=== PATIENT | female | born 1930 | race Caucasian/White ===

== ENCOUNTER 2017-06-16 20:45 | Inpatient (IN) | payer MEDICARE, OTHER ==
[~2017-06-16] VITALS: Ht 162.6 cm; Wt 60.0 kg
[~2017-06-16 20:45] MED LIST: ADVI200C5 PO; CARV10 PO; COLA100C3 PO; HYDR-3535 PO; MIRA33504 PO; OXYB5TAB8 PO; RANI300T PO
[2017-06-16 21:16] VITALS: BP 145/91; PULSE 87; RESP 18; TEMP 98; O2SAT 91
[2017-06-16] MEDS ORDERED: DULO20 PO (21:42)
[2017-06-16] MEDS ORDERED: ASPI81CH6 CHEW (21:42)
[2017-06-16] MEDS ORDERED: CYMB30CA PO (21:42)
[2017-06-16 21:59] LABS: AUTOMATED NEUTROPHIL # 4.7 TH/MM3 (1.8-7.7); BASOPHIL % 0.5 % (0.0-2.0); EOSINOPHIL # 0.2 TH/MM3 (0-0.4); EOSINOPHIL % 3.6 % (0.0-4.0); HEMATOCRIT 31.4 % (35.0-46.0); HEMO FLAGS DIFF FINAL; LYMPH % 12.6 % (9.0-44.0); LYMPHOCYTE # 0.8 TH/MM3 (1.0-4.8); MEAN CELL VOLUME 80.6 FL (80.0-100.0); MEAN CORPUSCULAR HEMOGLOBIN 26.9 PG (27.0-34.0); MEAN CORPUSCULAR HGB CONC 33.3 % (32.0-36.0); MONO % 12.1 % (0.0-8.0); NEUT % 71.2 % (16.0-70.0); PLATELET COUNT 258 TH/MM3 (150-450); RED BLOOD COUNT 3.89 MIL/MM3 (4.00-5.30); RED CELL DISTRIBUTION WIDTH 16.6 % (11.6-17.2); WHITE BLOOD COUNT 6.6 TH/MM3 (4.0-11.0)
[2017-06-16] MEDS ORDERED: KETOROLAC TROMETHAMINE 30 MG/ML (IVP) VIAL IV PUSH ONE (22:00)
--- NOTE | 2017-06-16 22:08 | PD ---
HPI Chief Complaint: Fall Time Seen by Provider: 21:21 Travel History International Travel<30 days: No Contact w/Intl Traveler<30days: No Traveled to known affect area: No History of Present Illness HPI 87-year-old female presents emergency department via EMS for evaluation after she was walking with a walker and experienced a mechanical fall. Patient hit the left parietal aspect of her skull and sustained a laceration. Patient denies any loss consciousness, nausea, vomiting. Patient is experiencing left shoulder pain subsequent to the fall. There is no obvious deformity, ecchymosis , erythema, cyanosis. Patient is not currently on any blood thinners outside of baby aspirin daily. Patient has any chest pain, shortness of breath, abdominal pain, nausea, vomiting, diarrhea. PFSH Past Medical History Arthritis: Yes Diminished Hearing: No Fibromyalgia: Yes GERD: Yes Genitourinary: Yes (overactive bladder) Hypertension: Yes Tetanus Vaccination: Unknown Influenza Vaccination: No ?: Not Menopausal: Yes Past Surgical History Joint Replacement: Yes (hip) Social History Alcohol Use: No Tobacco Use: No Substance Use: No Allergies-Medications (Allergen,Severity, Reaction): Coded Allergies: buspirone (Unverified Adverse Reaction, Intermediate, 06/16/17) codeine (Unverified Adverse Reaction, Intermediate, 06/16/17) duloxetine (Unverified Adverse Reaction, Intermediate, 06/16/17) lorazepam (Unverified Adverse Reaction, Intermediate, 06/16/17) pregabalin (Unverified Adverse Reaction, Intermediate, 06/16/17) Reported Meds & Prescriptions Reported Meds & Active Scripts Active Reported Cymbalta DR (Duloxetine HCl) 30 Mg Capdr 40 Mg PO DAILY Cymbalta DR (Duloxetine HCl) 20 Mg Capdr 20 Mg PO DAILY Aspirin Low Dose (Aspirin) 81 Mg Chew 81 Mg CHEW DAILY Ranitidine (Ranitidine HCl) 300 Mg Tab 300 Mg PO DAILY Coreg Cr 24 HR (Carvedilol) 10 Mg Cap 10 Mg PO HS Review of Systems Except as stated in HPI: all other systems reviewed are Neg Physical Exam Narrative GENERAL: Well-nourished, well-developed 87-year-old female patient in no acute distress. Nontoxic-appearing. SKIN: 2 lacerations in parallel orientation, 1cm and 0.75cm laceration noted to the left parietal aspect of the skull. HEAD: Normocephalic. Laceration/small hematoma to the left aspect of the skull NEUROLOGICAL: Awake and alert. Cranial nerves II through XII intact. Motor and sensory grossly within normal limits. Five out of 5 muscle strength in all muscle groups. Normal speech. EYES: No scleral icterus. No injection or drainage. NECK: Supple, trachea midline. No JVD or lymphadenopathy. CARDIOVASCULAR: Regular rate and rhythm without murmurs, gallops, or rubs. Radial pulses +2 bilaterally. RESPIRATORY: Breath sounds equal bilaterally. No accessory muscle use. GASTROINTESTINAL: Abdomen soft, non-tender, nondistended. MUSCULOSKELETAL: Left lateral shoulder tenderness to palpation. No obvious deformity, ecchymosis, erythema, cyanosis, or edema. BACK: No midline spinal tenderness. No obvious deformity, ecchymosis, erythema , cyanosis, edema. No CVA tenderness. Data Data Last Documented VS Vital Signs Date Time Temp Pulse Resp B/P (MAP) Pulse Ox O2 Delivery O2 Flow Rate FiO2 06/16/17 21:16 98.0 87 18 145/91 (109) 91 Room Air Orders Orders Ct Brain W/O Iv Contrast(Rout) (06/16/17 21:25) Basic Metabolic Panel (Bmp) (06/16/17 21:29) Complete Blood Count With Diff (06/16/17 21:29) Ckmb (Isoenzyme) Profile (06/16/17 21:29) Troponin I (06/16/17 21:29) Blood Glucose (06/16/17 21:29) Ecg Monitoring (06/16/17:29) Iv Access Insert/Monitor (06/16/17 21:29) B-Type Natriuretic Peptide (06/16/17 21:48) Ketorolac Inj (Toradol Inj) (06/16/17 22:00) Shoulder, Limited(2vws) (06/16/17 21:25) Ribs, Uni (W/Exp Cxr-Min 3vw) (06/16/17 22:21) CKMB (06/16/17 21:35) CKMB% (06/16/17 21:35) Ct Thorax/ Chest W Iv Contrast (06/16/17 22:33) Tetanus/Diphtheria Tox Adult (Tetanus/Di (06/16/17 22:45) Labs Laboratory Tests Test 06/16/17 21:35 White Blood Count 6.6 TH/MM3 Red Blood Count 3.89 MIL/MM3 Hemoglobin 10.5 GM/DL Hematocrit 31.4 % Mean Corpuscular Volume 80.6 FL Mean Corpuscular Hemoglobin 26.9 PG Mean Corpuscular Hemoglobin Concent 33.3 % Red Cell Distribution Width 16.6 % Platelet Count 258 TH/MM3 Mean Platelet Volume 8.5 FL Neutrophils (%) (Auto) 71.2 % Lymphocytes (%) (Auto) 12.6 % Monocytes (%) (Auto) 12.1 % Eosinophils (%) (Auto) 3.6 % Basophils (%) (Auto) 0.5 % Neutrophils # (Auto) 4.7 TH/MM3 Lymphocytes # (Auto) 0.8 TH/MM3 Monocytes # (Auto) 0.8 TH/MM3 Eosinophils # (Auto) 0.2 TH/MM3 Basophils # (Auto) 0.0 TH/MM3 CBC Comment DIFF FINAL Differential Comment Blood Urea Nitrogen 16 MG/DL Creatinine 0.60 MG/DL Random Glucose 111 MG/DL Calcium Level 8.3 MG/DL Sodium Level 137 MEQ/L Potassium Level 4.1 MEQ/L Chloride Level 103 MEQ/L Carbon Dioxide Level 26.9 MEQ/L Anion Gap 7 MEQ/L Estimat Glomerular Filtration Rate 95 ML/MIN Total Creatine Kinase 118 U/L Creatine Kinase MB 2.3 NG/ML Troponin I LESS THAN 0.02 NG/ML MDM Medical Decision Making Medical Screen Exam Complete: Yes Emergency Medical Condition: Yes Differential Diagnosis Differential diagnoses include but not limited to electrolyte abnormality, coronary event, mechanical fall, ICH, laceration, skull fracture Narrative Course 87-year-old female presents emergency department for evaluation after she sustained a fall while walking with her walker this evening. EKG ordered and pending. Patient placed on monitor and IV obtained. Blood work sent to the lab. CBC, BMP, troponin, CK, BNP ordered and pending. Brain CT ordered and pending. Left shoulder x-ray ordered and pending. IV Toradol administered for pain management. The shoulder x-ray shows distal clavicle fracture and left upper rib fractures. CT of the thoracic chest with contrast ordered and pending. Lacerations to the left parietal aspect of the skull appeared. Please see my procedural narrative. Tetanus updated. Dr Haines assumes care for this patient. Please see her documentation for further details and disposition. Last Impressions Shoulder X-Ray [id number]/16/[id number] Signed Impressions: Service Date/Time: Friday, June 16, 2017 21:54 - CONCLUSION: Distal left clavicle an upper left rib fractures. Kyle Ledezma MD Procedures Procedure Narrative LACERATION LOCATION: Left parietal aspect of skull LENGTH: 2 lacerations in parallel orientation, 1 cm and 0.75 cm NUMBER OF STITCHES/VISH: 3 vish REPAIR: The area of the laceration was prepped with Betadine and sterilely draped. The wound was copiously irrigated and explored without evidence of foreign body, tendon injury or neurovascular injury. The wound was closed using [place]. This was a single layer repair. The patient was advised to keep the area clean and dry. Patient tolerated the procedure well. Tran Diaz Jun 16, 2017 22:08
[2017-06-16 22:18] LABS: ANION GAP 7 MEQ/L (5-15); BICARBONATE 26.9 MEQ/L (21.0-32.0); BLOOD UREA NITROGEN 16 MG/DL (7-18); CHLORIDE 103 MEQ/L (98-107); GLOMERULAR FILTRATION RATE 95 ML/MIN (>89); POTASSIUM 4.1 MEQ/L (3.5-5.1); SODIUM (NA) 137 MEQ/L (136-145)
--- NOTE | 2017-06-16 22:18 | RADRPT ---
EXAM DATE/TIME: 06/16/2017 21:54 [facility] COMPARISON: No previous studies available for comparison. INDICATIONS : Fall. Severe left shoulder pain. Limited motion. MEDICAL HISTORY : None. SURGICAL HISTORY : None. ENCOUNTER: Initial ACUITY: 1 day PAIN SCORE: 10/10 LOCATION: Left scapular FINDINGS: There is fracture at the distal aspect of the clavicle 1.3 cm proximal to the acromioclavicular joint . There clavicular joint is normally aligned. The glenohumeral joint is aligned. There are fractures of several upper left ribs. CONCLUSION: Distal left clavicle an upper left rib fractures. Kyle Ledezma MD on June 16, 2017 at 22:15 Board Certified Radiologist. This report was verified electronically.
[2017-06-16 22:22] LABS: CREATINE KINASE 118 U/L (26-192)
[2017-06-16 22:34] LABS: CKMB 2.3 NG/ML (0.5-3.6)
[2017-06-16] MEDS ORDERED: TETANUS/DIPHTHERIA TOXOID ADULT 0.5 ML VIAL IM ONE (22:45)
[2017-06-16] MEDS ORDERED: IOHEXOL 350 MG/ML 10 ML VIAL (for RAD DIAG) IVCONTRAST ONE (23:13)
--- NOTE | 2017-06-16 23:16 | RADRPT ---
EXAM DATE/TIME: 06/16/2017 22:39 [facility] COMPARISON: No previous studies available for comparison. INDICATIONS : Fall. Laceration to left forehead. RADIATION DOSE: 56.35 CTDIvol (mGy) MEDICAL HISTORY : Hypertension. Gastroesophageal reflux disease. Fibromylagia SURGICAL HISTORY : Left hip replacement ENCOUNTER: Initial ACUITY: 1 day PAIN SCALE: 6/10 LOCATION: Left cranial TECHNIQUE: Multiple contiguous axial images were obtained of the head. Using automated exposure control and adj ustment of the mA and/or kV according to patient size, radiation dose was kept as low as reasonably a chievable to obtain optimal diagnostic quality images. DICOM format image data is available electro nically for review and comparison. FINDINGS: CEREBRUM: The ventricles, sulci, and basal cisterns are prominent characteristic of moderate severity central c ortical atrophy. There is also decreased attenuation throughout the supratentorial white matter lev acteristic of ischemic demyelination.. No evidence of midline shift, mass lesion, hemorrhage or acut e infarction. No extra-axial fluid collections are seen. POSTERIOR FOSSA: The cerebellum and brainstem are intact. The 4th ventricle is midline. The cerebellopontine angle i s unremarkable. EXTRACRANIAL: The visualized portion of the orbits is intact. SKULL: Left high parietal scalp swelling and multiple metallic skin vish. The calvaria is intact. No ev idence of skull fracture. CONCLUSION: 1. Soft tissue injury to the left parietal scalp. No evidence of skull fracture. 2. No acute findings in the brain. Moderate severity atrophy. Cameron Plummer MD on June 16, 2017 at 23:13 Board Certified Radiologist. This report was verified electronically.
--- NOTE | 2017-06-16 23:23 | RADRPT ---
EXAM DATE/TIME: 06/16/2017 22:46 [facility] COMPARISON: No previous studies available for comparison. INDICATIONS : Trauma; fall. IV CONTRAST: 72 cc Omnipaque 350 (iohexol) IV RADIATION DOSE: 5.1 CTDIvol (mGy) MEDICAL HISTORY : Hypertension. Gastroesophageal reflux disease. Fibromyalgia SURGICAL HISTORY : None. ENCOUNTER: Initial ACUITY: 1 day PAIN SCALE: 7/10 LOCATION: chest TECHNIQUE: Volumetric scanning of the chest was performed. Using automated exposure control and adjustment of t he mA and/or kV according to patient size, radiation dose was kept as low as reasonably achievable to obtain optimal diagnostic quality images. DICOM format image data is available electronically for review and comparison. Follow-up recommendations for detected pulmonary nodules are based at a minimum on nodule size and pa tient risk factors according to Fleischner Society Guidelines. FINDINGS: LUNGS: Patchy areas of increased ground substance in the posterior upper lungs, tracking along the right sylvie or fissure, and some partially consolidative opacities in the lower posterior lungs. No evidence of pneumothorax. PLEURA: Bilateral pleural fluid, localized in the upper chest bilaterally measuring up to 1 cm and also in th e costophrenic angles measuring up to 2 cm. MEDIASTINUM: The heart and great vessels demonstrate no acute abnormality. There is no mediastinal or hilar lymph adenopathy. AXILLAE: Within normal limits. No lymphadenopathy. SKELETAL: Multiple rib fractures involving the lateral left 3rd and 4th ribs, and posterior left 5th rib. Mini mal displacement. No fractures seen on the right side. MISCELLANEOUS: There is a large hiatus hernia measuring up to 5 cm in width. CONCLUSION: 1. Fractures of the left 3rd, 4th, and 5th ribs. 2. Patchy areas of opacity in the upper and lower lung suggesting pulmonary contusion. 3. Bilateral pleural fluid in both the upper and lower chest. No evidence of pneumothorax. 4. Large hiatus hernia. Cameron Plummer MD on June 16, 2017 at 23:15 Board Certified Radiologist. This report was verified electronically.
[2017-06-16 23:29] VITALS: BP 178/77; PULSE 91; RESP 24; O2SAT 94
[2017-06-16] MEDS ORDERED: MORPHINE SULFATE 2 MG/ML INJ IV PUSH ONE (23:30)
[2017-06-16] MEDS ORDERED: ONDANSETRON HCL 4 MG/2 ML VIAL IV PUSH ONE (23:30)
[2017-06-17] VITALS (12 sets, daily range): BP systolic 108–158; BP diastolic 53–78; PULSE 68–90; RESP 16–18; TEMP 98–98.6; O2SAT 94–98
--- NOTE | 2017-06-17 00:17 | PD ---
Physical Exam Date Seen by Provider: Jun 17, 2017 Time Seen by Provider: 00:12 Narrative accepted in transfer of care GENERAL: Well-developed elderly female in no acute distress no respiratory distress SKIN: Warm and dry. HEAD: Normocephalic. EYES: No scleral icterus. No injection or drainage. NECK: Supple, trachea midline. No JVD or lymphadenopathy. CARDIOVASCULAR: Regular rate and rhythm without murmurs, gallops, or rubs. Chest wall tenderness to palpation with clavicle deformity on the left and mild left chest wall tenderness. RESPIRATORY: Breath sounds equal bilaterally. No accessory muscle use. GASTROINTESTINAL: Abdomen soft, non-tender, nondistended. MUSCULOSKELETAL: No cyanosis, or edema. Data Data Last Documented VS Vital Signs Date Time Temp Pulse Resp B/P (MAP) Pulse Ox O2 Delivery O2 Flow Rate FiO2 06/17/17 00:06 81 18 158/65 (96) 97 Nasal Cannula 2.00 06/16/17 21:[address] Brain W/O Iv Contrast(Rout) (06/16/17 21:25) Basic Metabolic Panel (Bmp) (06/16/17 21:29) Complete Blood Count With Diff (06/16/17 21:29) Ckmb (Isoenzyme) Profile (06/16/17 21:29) Troponin I (06/16/17 21:29) Blood Glucose (06/16/17 21:29) Ecg Monitoring (06/16/17 21:29) Iv Access Insert/Monitor (06/16/17 21:29) B-Type Natriuretic Peptide (06/16/17 21:48) Ketorolac Inj (Toradol Inj) (06/16/17 22:00) Shoulder, Limited(2vws) (06/16/17 21:25) CKMB (06/16/17 21:35) CKMB% (06/16/17 21:35) Ct Thorax/ Chest W Iv Contrast (06/16/17 22:33) Tetanus/Diphtheria Tox Adult (Tetanus/Di (06/16/17 22:45) Iohexol 350 Inj (Omnipaque 350 Inj) (06/16/17 23:13) Ondansetron Inj (Zofran Inj) (06/16/17 23:30) Morphine Inj (Morphine Inj) (06/16/17 23:30) Admit Order (Ed Use Only) (06/17/17 ) Volunteer Services Supervisor / Telemetry [email or web address] (06/17/17 00:10) Diet Heart Healthy (06/17/17 Breakfast) Activity Oob With Assistance (06/17/17 00:10) Notify Dr: Other (06/17/17 00:10) Labs Laboratory Tests Test 06/16/17 21:35 White Blood Count 6.6 TH/MM3 Red Blood Count 3.89 MIL/MM3 Hemoglobin 10.5 GM/DL Hematocrit 31.4 % Mean Corpuscular Volume 80.6 FL Mean Corpuscular Hemoglobin 26.9 PG Mean Corpuscular Hemoglobin Concent 33.3 % Red Cell Distribution Width 16.6 % Platelet Count 258 TH/MM3 Mean Platelet Volume 8.5 FL Neutrophils (%) (Auto) 71.2 % Lymphocytes (%) (Auto) 12.6 % Monocytes (%) (Auto) 12.1 % Eosinophils (%) (Auto) 3.6 % Basophils (%) (Auto) 0.5 % Neutrophils # (Auto) 4.7 TH/MM3 Lymphocytes # (Auto) 0.8 TH/MM3 Monocytes # (Auto) 0.8 TH/MM3 Eosinophils # (Auto) 0.2 TH/MM3 Basophils # (Auto) 0.0 TH/MM3 CBC Comment DIFF FINAL Differential Comment Blood Urea Nitrogen 16 MG/DL Creatinine 0.60 MG/DL Random Glucose 111 MG/DL Calcium Level 8.3 MG/DL Sodium Level 137 MEQ/L Potassium Level 4.1 MEQ/L Chloride Level 103 MEQ/L Carbon Dioxide Level 26.9 MEQ/L Anion Gap 7 MEQ/L Estimat Glomerular Filtration Rate 95 ML/MIN Total Creatine Kinase 118 U/L Creatine Kinase MB 2.3 NG/ML Troponin I LESS THAN 0.02 NG/ML [facility] Medical Record Reviewed: Yes Supervised Visit with VICKY: Yes Interpretation(s) Last Impressions Chest CT 06/16/17 4175 Signed Impressions: Service Date/Time: Friday, June 16, 2017 22:46 - CONCLUSION: 1. Fractures of the left 3rd, 4th, and 5th ribs. 2. Patchy areas of opacity in the upper and lower lung suggesting pulmonary contusion. 3. Bilateral pleural fluid in both the upper and lower chest. No evidence of pneumothorax. 4. Large hiatus hernia. Cameron Plummer MD Shoulder X-Ray 06/16/172124 Signed Impressions: Service Date/Time: Friday, June 16, 2017 21:54 - CONCLUSION: Distal left clavicle an upper left rib fractures. Kyle Ledezma MD Head CT 06/16/172124 Signed Impressions: Service Date/Time: Friday, June 16, 2017 22:39 - CONCLUSION: 1. Soft tissue injury to the left parietal scalp. No evidence of skull fracture. 2. No acute findings in the brain. Moderate severity atrophy. Cameron Plummer MD CBC & BMP Diagram 06/16/17 21:35 Calcium Level 8.3 L Vital Signs Date Time Temp Pulse Resp B/P (MAP) Pulse Ox O2 Delivery O2 Flow Rate FiO2 06/17/17 00:06 81 18 158/65 (96) 97 Nasal Cannula 2.00 06/16/17 23:29 91 24 178/77 (110) 94 Nasal Cannula 2.00 06/16/17 21:16 98.0 87 18 145/91 (109) 91 Room Air Differential Diagnosis Minor closed head injury, ICH, skull fracture, cervical spine sprain strain fracture, cord injury, chest wall contusion rib fracture pneumothorax for a contusion shoulder injury probable fracture Narrative Course 87-year-old female with non-syncopal trip and fall just prior to arrival to the emergency department injury to the right shoulder. Patient also sustained contusion to the scalp with small laceration. Patient accepted in transfer care from nurse practitioner I agree with her evaluation and I physically examined and obtained history from the patient myself. Has been placed on 2 L/m nasal cannula supplemental oxygen; patient administered Zofran 4 mg IV and morphine sulfate 2 mg IV for clavicle and rib fracture pain management CT imaging identified patient has pulmonary contusion as well as the rib fractures no pneumothorax; patient's case discussed with on-call trauma surgeon Dr. Abbott --patient immediately admitted to medicine service with as needed consult to trauma service Patient's case discussed with on-call medicine Dr Varghese who graciously accepts the patient for observation admission Physician Communication Physician Communication Case discussed with Dr. Abbott; discussed with Dr Varghese Diagnosis Primary Impression: Left pulmonary contusion Qualified Codes: S27.321A - Contusion of lung, unilateral, initial encounter Additional Impressions: Multiple fractures of ribs of left side Qualified Codes: S22.42XA - Multiple fractures of ribs, left side, initial encounter for closed fracture Clavicle fracture Qualified Codes: S42.032A - Displaced fracture of lateral end of left clavicle , initial encounter for closed fracture Admitting Information Admitting Physician Requests: Myranda Bran MD Jun 17, 2017 00:17
--- NOTE | 2017-06-17 02:11 | HHI.HP ---
[facility] Primary Care Physician Fidencio Harris MD Admission Diagnosis pulmonary contusion; multiple rib fractures; clavicle fracture Diagnoses: Travel History International Travel<30 Days: No Contact w/Intl Traveler <30 Da: No Traveled to Known Affected Are: No History of Present Illness 87-year-old female with a past medical history of fibromyalgia, osteoarthritis, hypertension and GERD presents to the emergency department after sustaining a fall at her senior living facility. She reports she was walking with her walker when she tripped and fell face down. She denies loss of consciousness. She did hit her head and sustained a 2 cm laceration to the left parietal region. CT head was negative for acute findings in the brain. The patient has a distal left clavicle fracture and left upper rib fractures. Additionally, the patient reports a 3 week history of bilateral lower extremity edema that is making it more difficult for her to ambulate. She also reports new onset double vision for the last 4-5 days. She states that when she attempts to write words they no longer align properly. The symptoms are not changed with her glasses. She is very concerned about both the visual symptoms and her lower extremity edema. Her daughter reports that she reported these symptoms to her doctor and lab work was ordered however it has not yet been completed. Review of Systems Denies fever or chills Denies blurry vision, otorrhea, rhinorrhea Denies sore throat and cough No chest pain, palpitations, shortness of breath No abdominal pain Denies constipation/diarrhea/nausea/vomiting Denies muscle pain/weakness No rashes Past Family Social History Past Medical History Fibromyalgia Osteoarthritis Restless leg syndrome Hypertension GERD Past Surgical History Left hip Bilateral cataract surgery Right shoulder surgery Right knee replacement Hysterectomy Reported Medications Reported Meds & Active Scripts Active Reported Cymbalta DR (Duloxetine HCl) 30 Mg Capdr 40 Mg PO DAILY Cymbalta DR (Duloxetine HCl) 20 Mg Capdr 20 Mg PO DAILY Aspirin Low Dose (Aspirin) 81 Mg Chew 81 Mg CHEW DAILY Ranitidine (Ranitidine HCl) 300 Mg Tab 300 Mg PO DAILY Coreg Cr 24 HR (Carvedilol) 10 Mg Cap 10 Mg PO HS Allergies: Coded Allergies: buspirone (Unverified Adverse Reaction, Intermediate, 06/16/17) codeine (Unverified Adverse Reaction, Intermediate, 06/16/17) duloxetine (Unverified Adverse Reaction, Intermediate, 06/16/17) lorazepam (Unverified Adverse Reaction, Intermediate, 06/16/17) pregabalin (Unverified Adverse Reaction, Intermediate, 06/16/17) Family History Father with coronary artery disease Social History Never smoker. Denies alcohol, illicit drugs Physical Exam Vital Signs Vital Signs Date Time Temp Pulse Resp B/P (MAP) Pulse Ox O2 Delivery O2 Flow Rate FiO2 06/17/17 00:33 06/17/17 00:31 78 18 124/57 (79) 98 Nasal Cannula 2.00 06/17/17 00:06 81 18 158/65 (96) 97 Nasal Cannula 2.00 06/16/17 23:29 91 24 178/77 (110) 94 Nasal Cannula 2.00 06/16/17 21:16 98.0 87 18 145/91 (109) 91 Room Air Physical Exam GENERAL: female lying in bed SKIN: No rashes, ecchymoses or lesions. Cool and dry. HEAD: 2 cm stapled laceration on the left parietal skull. Hemostatic. Normocephalic. No temporal or scalp tenderness. EYES: Pupils equal round and reactive. Extraocular motions intact. No scleral icterus. No injection or drainage. ENT: Nose without bleeding, purulent drainage or septal hematoma. Throat without erythema, tonsillar hypertrophy or exudate. Uvula midline. Airway patent. NECK: Trachea midline. No JVD or lymphadenopathy. Supple, nontender, no meningeal signs. CARDIOVASCULAR: Regular rate and rhythm without murmurs, gallops, or rubs. RESPIRATORY: Clear to auscultation. Breath sounds equal bilaterally. No wheezes , rales, or rhonchi. GASTROINTESTINAL: Abdomen soft, non-tender, nondistended. No hepato-splenomegaly , or palpable masses. No guarding. MUSCULOSKELETAL: Extremities without clubbing, cyanosis, or edema. No joint tenderness, effusion, or edema noted. No calf tenderness. NEUROLOGICAL: Awake and alert. Cranial nerves II through XII intact. Motor and sensory grossly within normal limits. Normal speech. Laboratory Laboratory Tests Test 06/16/17 21:35 White Blood Count 6.6 Red Blood Count 3.89 Hemoglobin 10.5 Hematocrit 31.4 Mean Corpuscular Volume 80.6 Mean Corpuscular Hemoglobin 26.9 Mean Corpuscular Hemoglobin Concent 33.3 Red Cell Distribution Width 16.6 Platelet Count 258 Mean Platelet Volume 8.5 Neutrophils (%) (Auto) 71.2 Lymphocytes (%) (Auto) 12.6 Monocytes (%) (Auto) 12.1 Eosinophils (%) (Auto) 3.6 Basophils (%) (Auto) 0.5 Neutrophils # (Auto) 4.7 Lymphocytes # (Auto) 0.8 Monocytes # (Auto) 0.8 Eosinophils # (Auto) 0.2 Basophils # (Auto) 0.0 CBC Comment DIFF FINAL Differential Comment Blood Urea Nitrogen 16 Creatinine 0.60 Random Glucose 111 Calcium Level 8.3 Sodium Level 137 Potassium Level 4.1 Chloride Level 103 Carbon Dioxide Level 26.9 Anion Gap 7 Estimat Glomerular Filtration Rate 95 Total Creatine Kinase 118 Creatine Kinase MB 2.3 Troponin I LESS THAN 0.02 B-Type Natriuretic Peptide 532 Result Diagram: 06/16/17213406/16/172134 Caprini VTE Risk Assessment Caprini VTE Risk Assessment: Mod/High Risk (score >= 2) Caprini Risk Assessment Model Point Value = 1 Point Value = 2 Point Value = 3 Point Value = 5 Age 41-60 Minor surgery BMI > 25 kg/m2 Swollen legs Varicose veins or History of unexplained or recurrent spontaneous Oral contraceptives or hormone replacement Sepsis (< 1 month) Serious lung disease, including pneumonia (< 1 month) Abnormal pulmonary function Acute myocardial infarction Congestive heart failure (< 1 month) History of inflammatory bowel disease Medical patient at bed rest Age 61-74 Arthroscopic surgery Major open surgery (> 45 min) Laparoscopic surgery (> 45 min) Malignancy Confined to bed (> 72 hours) Immobilizing plaster cast Central venous access Age >= 75 History of VTE Family history of VTE Factor V Leiden Prothrombin [id number] Lupus anticoagulant Anticardiolipin antibodies Elevated serum homocysteine Heparin-induced thrombocytopenia Other congenital or acquired thrombophilia Stroke (< 1 month) Elective arthroplasty Hip, pelvis, or leg fracture Acute spinal cord injury (< 1 month) Prophylaxis Regimen Total Risk Factor Score Risk Level Prophylaxis Regimen 0-1 Low Early ambulation 2 Moderate Order ONE of the following: *Sequential Compression Device (SCD) *Heparin 5000 units SQ BID 3-4 Higher Order ONE of the following medications: *Heparin 5000 units SQ TID *Enoxaparin/Lovenox 40 mg SQ daily (WT < 150 kg, CrCl > 30 mL/min) *Enoxaparin/Lovenox 30 mg SQ daily (WT < 150 kg, CrCl > 10-29 mL/min) *Enoxaparin/Lovenox 30 mg SQ BID (WT < 150 kg, CrCl > 30 mL/min) AND/OR *Sequential Compression Device (SCD) 5 or more Highest Order ONE of the following medications: *Heparin 5000 units SQ TID (Preferred with Epidurals) *Enoxaparin/Lovenox 40 mg SQ daily (WT < 150 kg, CrCl > 30 mL/min) *Enoxaparin/Lovenox 30 mg SQ daily (WT < 150 kg, CrCl > 10-29 mL/min) *Enoxaparin/Lovenox 30 mg SQ BID (WT < 150 kg, CrCl > 30 mL/min) AND *Sequential Compression Device (SCD) Assessment and Plan Assessment and Plan Assessment/plan: 1. Fall/rib fractures/clavicle fracture/pulmonary contusion Patient sustained fracture of the third, fourth and fifth ribs on the left side CT chest shows patchy areas of opacity in the upper and lower lung suggestive of pulmonary contusion Patient also with distal left clavicle fracture, continue left arm sling Supplemental oxygen as needed Pain control with morphine PT evaluation to determine disposition 2. Bilateral lower extremity edema New onset BNP 532 Echo pending IV Lasix 3. New onset visual symptoms Patient complains of double vision and inability to align her handwriting for the past 4-5 days MRI brain pending 4. Hypertension/fibromyalgia/GERD Continue home medications FEN Heart healthy diet Electrolytes: monitor and replete prn Case discussed with ER physician at length Lilo Varghese MD Jun 17, 2017 02:11
[2017-06-17] MEDS: MORPHINE SULFATE 4 MG/ML INJ IV PUSH PRN ×3 (03:33→14:32)
--- NOTE | 2017-06-17 03:53 | RADRPT ---
EXAM DATE/TIME: 06/17/2017 03:06 [facility] COMPARISON: CT BRAIN W/O CONTRAST, June 16, 2017, 22:39. INDICATIONS : CVA. MEDICAL HISTORY : Gastroesophageal reflux disease. Arthritis. Hypertension. SURGICAL HISTORY : Hysterectomy. Right shoulder. Right knee. Left hip.Cataracts. ENCOUNTER: Subsequent ACUITY: 1 day PAIN SCORE: 5/10 LOCATION: cranial TECHNIQUE: Multiplanar, multisequence MRI of the brain was performed without contrast. FINDINGS: CEREBRUM: The ventricles, sulci, cisterns are prominent characteristic of eccentricity central and cortical atr ophy.. No evidence of midline shift, mass lesion, hemorrhage or acute infarction. No extraaxial flu id collections are seen. The pituitary gland and suprasellar cistern are normal in configuration. WHITE MATTER: Confluent T2 prolongation in the supratentorial white matter suggesting ischemic demyelination. POSTERIOR FOSSA: The cerebellum and brainstem are intact. The 4th ventricle is midline. The cerebellopontine angle is unremarkable. The cerebellar tonsils are normal in position. DIFFUSION IMAGING: No focal areas of restricted diffusion are seen. No evidence of acute infarction. EXTRACRANIAL: The visualized portions of the orbits and paranasal sinuses are unremarkable. CONCLUSION: 1. No acute findings. 2. Moderate severity central and cortical atrophy with diffuse white matter signal change. Cameron Plummer MD on June 17, 2017 at 3:50 Board Certified Radiologist. This report was verified electronically.
[2017-06-17] MEDS: FAMOTIDINE 20 MG TAB PO SCH (08:14)
[2017-06-17] MEDS: CARVEDILOL 3.125 MG TAB PO SCH ×2 (08:14→21:46)
[2017-06-17] MEDS: ASPIRIN 81 MG CHEW TAB CHEW SCH (08:14)
[2017-06-17] MEDS: FUROSEMIDE 20 MG/2 ML VIAL IV PUSH SCH ×2 (08:15→17:34)
[2017-06-17] MEDS ORDERED: DULoxetine HCl DR 20 MG CAP PO SCH (09:00)
[2017-06-17] MEDS ORDERED: DULoxetine HCl DR 60 MG CAP PO SCH (09:00)
--- NOTE | 2017-06-17 14:05 | HHI.PR ---
Addendum to Inpatient Note Addendum Reason: Additional Documentation Additional Information The patient was eating lunch. She said she had pain when she breathes heavily. She said that she sometimes has blurry vision. She says that her legs have been bothering her. Her daughter was at the bedside. Follow echocardiogram. Check duplex of the lower extremities for edema to rule out a DVT. Continue pain control, add liquid Lortab. Continue rehabilitation efforts. Continue sling. Discharge back to SNF after workup is complete and pain is better controlled. Add MiraLAX and Marci-Colace for constipation. Ronal Vidales DO Jun 17, 2017 14:05
[2017-06-17] MEDS: DOCUSATE SODIUM 50 MG/SENNA 8.6 MG TAB PO SCH ×2 (14:30→21:46)
[2017-06-17] MEDS: POLYETHYLENE GLYCOL 17 GM PKG PO SCH (14:31)
--- NOTE | 2017-06-17 14:50 | RADRPT ---
EXAM DATE/TIME: 06/17/2017 14:23 [facility] COMPARISON: No previous studies available for comparison. INDICATIONS : Bilateral leg edema. MEDICAL HISTORY : Arthritis. GERD. Fibromyalgia. Fractures left ribs and clavicle. Diabetes. SURGICAL HISTORY : Hysterectomy. Right shoulder surgery. Right knee surgery. Left hip replacement. Cataract surgery. ENCOUNTER: Initial ACUITY: 4 - 6 days PAIN SCORE: 3/10 LOCATION: Bilateral leg. TECHNIQUE: Venous ultrasound of the left and right leg was performed from the inguinal ligament to the proximal calf. Real-time, color Doppler and spectral tracing, compression and augmentation techniques were us ed. FINDINGS: RIGHT LEG: There is normal compressibility of the deep venous system from the inguinal region to the proximal ca lf. No echogenic clot is seen in the lumen of the common femoral, femoral, popliteal, and posterior tibial veins. There is a normal response of the venous system to proximal and distal augmentation an d respiration. LEFT LEG: There is normal compressibility of the deep venous system from the inguinal region to the proximal ca lf. No echogenic clot is seen in the lumen of the common femoral, femoral, popliteal, and posterior tibial veins. There is a normal response of the venous system to proximal and distal augmentation an d respiration. CONCLUSION: No DVT in either lower extremity. Jamal Dunn MD on June 17, 2017 at 14:48 Board Certified Radiologist. This report was verified electronically.
--- NOTE | 2017-06-17 18:22 | EKG ---
Date Performed: 06/16/2017 Time Performed: 21:24:32 PTAGE: 87 years EKG: Sinus rhythm WITH OCCASIONAL SUPRAVENTRICULAR PREMATURE COMPLEXES LEFT VENTRICULAR HYPERTROPHY AND ST-T CHANGE Di ffuse ST depression but nonspecifc but consider ischemia ABNORMAL ECG NO PREVIOUS TRACING DOCTOR: Alejandro Adan Interpretating Date/Time 06/17/2017 18:21:19
--- NOTE | 2017-06-17 19:53 | ECHRPT ---
Indication: HEART FAILURE CONCLUSIONS Normal left ventricular size. Mild concentric left ventricular hypertrophy. The left ventricular systolic function is grossly normal on limited imaging. The left atrial size is [id number] dilated. The right atrial size is moderately dilated. Mild mitral annular calcification. Moderate mitral valve regurgitation. Moderate thickening of the aortic valve leaflets. Trace aortic valve regurgitation. Severe aortic valve stenosis. Aortic valve area is 0.36 cm. Aortic valve mean gradient is 64.5 mmHg. There is moderate to severe tricuspid valve regurgitation. Mild pulmonary valve regurgitation. BP: 142 / 62 HR: 82 Rhythm: Sinus MEASUREMENTS (Male / Female) Normal Values Technical Quality:Fair 2D ECHO LV Diastolic Diameter PLAX 3.9 cm 4.2 - 5.9 / 3.9 - 5.3 cm LV Systolic Diameter PLAX 2.4 cm IVS Diastolic Thickness 1.3 cm 0.6 - 1.0 / 0.6 - 0.9 cm LVPW Diastolic Thickness 1.3 cm 0.6 - 1.0 / 0.6 - 0.9 cm LV Relative Wall Thickness 0.7 RV Internal Dim ED PLAX 3.1 cm LVOT Diameter 1.8 cm Aortic Root Diameter 2.5 cm LA Systolic Diameter LX 4.7 cm 3.0 - 4.0 / 2.7 - 3.8 cm LA Volume Index 51.1 cm/m 16 - 28 cm/m M-MODE AV Cusp Separation MM 1.3 cm DOPPLER AV Peak Velocity 520.5 cm/s AV Peak Gradient 108.4 mmHg AV Mean Gradient 64.5 mmHg AV Velocity Time Integral 120.0 cm LVOT Peak Velocity 80.8 cm/s LVOT Peak Gradient 2.6 mmHg LVOT Velocity Time Integral 16.1 cm LVOT Cardiac Index 2152.1 cm/minm AV Area Cont Eq vti 0.4 cm AV Area Cont Eq pk 0.4 cm Mitral E Point Velocity 132.0 cm/s Mitral A Point Velocity 123.0 cm/s Mitral E to A Ratio 1.1 LV E' Lateral Velocity 4.5 cm/s Mitral E to LV E' Lateral Ratio 29.5 LV E' Septal Velocity 3.6 cm/s Mitral E to LV E' Septal Ratio 36.6 TR Peak Velocity 413.0 cm/s TR Peak Gradient 68.2 mmHg Right Atrial Pressure 10.0 mmHg Pulmonary Artery Systolic Pressu 78.2 mmHg Right Ventricular Systolic Press 78.2 mmHg PV Peak Velocity 68.6 cm/s PV Peak Gradient 1.9 mmHg FINDINGS LEFT VENTRICLE Normal left ventricular size. Mild concentric left ventricular hypertrophy. The left ventricular systolic function is grossly normal on limited imaging. RIGHT VENTRICLE Normal right ventricular size and systolic function. LEFT ATRIUM The left atrial size is [id number] dilated. RIGHT ATRIUM The right atrial size is moderately dilated. ATRIAL SEPTUM Normal atrial septal thickness without atrial level shunting by limited color doppler interrogation. AORTA The aortic root and proximal ascending aorta are normal in size on limited imaging. MITRAL VALVE Mild mitral annular calcification. Moderate mitral valve regurgitation. AORTIC VALVE Moderate thickening of the aortic valve leaflets. Trace aortic valve regurgitation. Severe aortic valve stenosis. Aortic valve area is 0.36 cm. Aortic valve mean gradient is 64.5 mmHg. TRICUSPID VALVE There is moderate to severe tricuspid valve regurgitation. PULMONARY VALVE Mild pulmonary valve regurgitation. VESSELS The inferior vena cava is normal in size. PERICARDIUM No pericardial effusion. Good Tello MD (Electronically Signed) Final Date:17 June 2017 19:52
[2017-06-17] MEDS ORDERED: CARVEDILOL 10 MG PO SCH (21:00)
[2017-06-17] MEDS: DULoxetine HCl DR 20 MG CAP PO SCH (21:47)
[2017-06-17] MEDS ORDERED: ACETAMINOPHEN/HYDROcodone 325 MG/7.5 MG TAB PO PRN (23:30)
[2017-06-18 01:08] VITALS: BP 133/58; PULSE 84; RESP 17; TEMP 99.9; O2SAT 92
[2017-06-18 02:39] VITALS: PULSE 70
[2017-06-18 03:33] VITALS: BP 100/59; PULSE 86; RESP 17; TEMP 96.8; O2SAT 93
[2017-06-18] MEDS: POLYETHYLENE GLYCOL 17 GM PKG PO SCH (09:00)
[2017-06-18] MEDS: risperiDONE 0.5 MG TAB PO SCH ×2 (09:00→22:36)
[2017-06-18] MEDS: FAMOTIDINE 20 MG TAB PO SCH (09:00)
[2017-06-18] MEDS: DOCUSATE SODIUM 50 MG/SENNA 8.6 MG TAB PO SCH ×2 (09:00→22:36)
[2017-06-18] MEDS: ASPIRIN 81 MG CHEW TAB CHEW SCH (09:00)
[2017-06-18] MEDS: CARVEDILOL 3.125 MG TAB PO SCH ×2 (09:00→22:36)
[2017-06-18] MEDS: FUROSEMIDE 20 MG/2 ML VIAL IV PUSH SCH (09:00)
--- NOTE | 2017-06-18 11:56 | HHI.PR ---
Subjective Remarks Follow up ribs fx/clavicle fx/ LE edema and now confusion 06/18/17-patient seen and examined; quite confused this AM and disrupting care. Afebrile Objective Vitals Vital Signs Date Time Temp Pulse Resp B/P (MAP) Pulse Ox O2 Delivery O2 Flow Rate FiO2 06/18/17 03:33 96.8 86 17 100/59 (73) 93 06/18/17 02:39 70 06/18/17 01:08 99.9 84 17 133/58 (83) 92 06/17/17 23:05 80 06/17/17 19:33 98.5 90 18 114/53 (73) 97 06/17/17 16:41 79 06/17/17 15:29 98.6 80 18 108/53 (71) 94 06/17/17 14:47 85 06/17/17 12:39 98.2 76 16 115/54 (74) 95 I/O 06/17/17 06/17/17 06/17/17 06/18/17 06/18/17 06/18/17 07:00 15:00 23:00 07:00 15:00 23:00 Intake Total 200 ml 750 ml 360 ml Balance 200 ml 750 ml 360 ml Intake Oral 200 ml 750 ml 360 ml # Voids 1 2 2 # Bowel Movements 0 Result Diagram: 06/16/17213406/16/172134 Imaging Last Impressions Lower Extremity Ultrasound 06/17/17 0000 Signed Impressions: Service Date/Time: Saturday, June 17, 2017 14:23 - CONCLUSION: No DVT in either lower extremity. Jamal Dunn MD Brain MRI 06/17/17 0000 Signed Impressions: Service Date/Time: Saturday, June 17, 2017 03:06 - CONCLUSION: 1. No acute findings. 2. Moderate severity central and cortical atrophy with diffuse white matter signal change. Cameron Plummer MD Chest CT 06/16/172232 Signed Impressions: Service Date/Time: Friday, June 16, 2017 22:46 - CONCLUSION: 1. Fractures of the left 3rd, 4th, and 5th ribs. 2. Patchy areas of opacity in the upper and lower lung suggesting pulmonary contusion. 3. Bilateral pleural fluid in both the upper and lower chest. No evidence of pneumothorax. 4. Large hiatus hernia. Cameron Plummer MD Shoulder X-Ray 06/16/172124 Signed Impressions: Service Date/Time: Friday, June 16, 2017 21:54 - CONCLUSION: Distal left clavicle an upper left rib fractures. Kyle Ledezma MD Head CT 06/16/172124 Signed Impressions: Service Date/Time: Friday, June 16, 2017 22:39 - CONCLUSION: 1. Soft tissue injury to the left parietal scalp. No evidence of skull fracture. 2. No acute findings in the brain. Moderate severity atrophy. Cameron Plummer MD Objective Remarks GENERAL: confused elderly female SKIN: Warm and dry. HEAD: Normocephalic. EYES: No scleral icterus. No injection or drainage. NECK: Supple, trachea midline. No JVD or lymphadenopathy. CARDIOVASCULAR: Regular rate and rhythm without murmurs, gallops, or rubs. RESPIRATORY: Breath sounds equal bilaterally. No accessory muscle use. GASTROINTESTINAL: Abdomen soft, non-tender, nondistended. MUSCULOSKELETAL: No cyanosis, or edema. LUE in sling BACK: Nontender without obvious deformity. No CVA tenderness. Procedures none A/P Problem List: (1) Multiple fractures of ribs of left side ICD Code: S22.42XA - Multiple fractures of ribs, left side, initial encounter for closed fracture Status: Acute (2) Clavicle fracture ICD Code: S42.009A - Fracture of unspecified part of unspecified clavicle, initial encounter for closed fracture Status: Acute Assessment and Plan 87 yrs old female with 1. Fall/rib fractures/clavicle fracture/pulmonary contusion Patient sustained fracture of the third, fourth and fifth ribs on the left side CT chest shows patchy areas of opacity in the upper and lower lung suggestive of pulmonary contusion Patient also with distal left clavicle fracture, continue left arm sling Supplemental oxygen as needed Pain control with morphine PT evaluation to determine disposition 2. Bilateral lower extremity edema New onset BNP 532 Doppler negative for DVT Echo unremarkable Change to PO Lasix 3. New onset visual symptoms Patient complains of double vision and inability to align her handwriting for the past few days MRI brain noted and review by me without any acute finding 4. Hypertension/fibromyalgia/GERD Continue home medications 5. AMS/Encephalopathy likely medication side effects Try low dose Risperdal DVT prophylaxis: B-SCDs Problem Qualifiers (1) Multiple fractures of ribs of left side: Qualified Codes: S22.42XA - Multiple fractures of ribs, left side, initial encounter for closed fracture (2) Clavicle fracture: Qualified Codes: S42.032A - Displaced fracture of lateral end of left clavicle , initial encounter for closed fracture Jamal Rucker MD Jun 18, 2017 11:56
--- NOTE | 2017-06-18 13:36 | EKG ---
Date Performed: 06/17/2017 Time Performed: 07:59:15 PTAGE: 87 years EKG: Sinus rhythm WITH OCCASIONAL SUPRAVENTRICULAR PREMATURE COMPLEXES POSSIBLE LEFT ATRIAL ENLARGEMENT LEFT VENTRICUL AR HYPERTROPHY AND ST-T CHANGE CANNOT EXCLUDE ISCHEMIA ABNORMAL ECG NO PREVIOUS TRACING DOCTOR: Gera Ruiz Interpretating Date/Time 06/18/2017 13:26:37
[2017-06-18 21:04] VITALS: BP 130/58; PULSE 92; RESP 18; TEMP 97.8; O2SAT 92
[2017-06-18] MEDS: DULoxetine HCl DR 20 MG CAP PO SCH (22:36)
[2017-06-18 23:50] VITALS: PULSE 81
[2017-06-19] VITALS (9 sets, daily range): BP systolic 92–162; BP diastolic 43–68; PULSE 68–83; RESP 18–19; TEMP 96.2–98.9; O2SAT 87–95
[2017-06-19] MEDS: FAMOTIDINE 20 MG TAB PO SCH (08:44)
[2017-06-19] MEDS: ASPIRIN 81 MG CHEW TAB CHEW SCH (08:45)
[2017-06-19] MEDS: CARVEDILOL 3.125 MG TAB PO SCH ×2 (08:45→22:29)
[2017-06-19] MEDS: FUROSEMIDE 20 MG TAB PO SCH (08:45)
[2017-06-19] MEDS: POTASSIUM CHLORIDE 10 MEQ CONTROLLED RELEASE TAB PO SCH (08:45)
[2017-06-19] MEDS: POLYETHYLENE GLYCOL 17 GM PKG PO SCH (08:46)
[2017-06-19] MEDS: DOCUSATE SODIUM 50 MG/SENNA 8.6 MG TAB PO SCH ×2 (08:46→22:28)
[2017-06-19] MEDS: risperiDONE 0.5 MG TAB PO SCH ×2 (08:50→22:28)
[2017-06-19] MEDS: ACETAMINOPHEN 325MG/HYDROcodone 7.5MG/15ML UDC PO PRN ×2 (08:51→22:29)
[2017-06-19] MEDS ORDERED: RISP0.5T25 PO (12:13)
[2017-06-19] MEDS ORDERED: KLOR10TA PO (12:13)
[2017-06-19] MEDS ORDERED: FURO20TA PO (12:13)
[2017-06-19] MEDS ORDERED: HYDR-3288 PO (12:13)
--- NOTE | 2017-06-19 12:16 | HHI.PR ---
Subjective Remarks Follow up ribs fx/clavicle fx/ LE edema and now confusion 06/18/17-patient seen and examined; quite confused this AM and disrupting care. Afebrile 06/19/17-patient seen and examined, alert and oriented 3, only complains of rib cage pain otherwise stable. Tolerated by mouth without any contractions nausea and vomiting. Objective Vitals Vital Signs Date Time Temp Pulse Resp B/P (MAP) Pulse Ox O2 Delivery O2 Flow Rate FiO2 06/19/17 11:39 97.5 74 18 92/47 (62) 95 06/19/17 07:40 97.6 79 18 142/60 (87) 95 06/19/17 05:30 98.1 80 18 162/68 (99) 92 06/19/17 01:20 72 06/19/17 00:38 98.9 81 18 150/56 (87) 92 06/18/17 23:50 81 06/18/17 21:04 97.8 92 18 130/58 (82) 92 I/O 06/18/17 06/18/17 06/18/17 06/19/17 06/19/17 06/19/17 07:00 15:00 23:00 07:00 15:00 23:00 Intake Total 760 ml 360 ml 120 ml Balance 760 ml 360 ml 120 ml Intake Oral 760 ml 360 ml 120 ml # Voids 7 1 2 # Bowel Movements 0 0 0 Result Diagram: 06/16/17213406/16/[id number] Imaging Last Impressions Lower Extremity Ultrasound 06/17/17 0000 Signed Impressions: Service Date/Time: Saturday, June 17, 2017 14:23 - CONCLUSION: No DVT in either lower extremity. Jamal Dunn MD Brain MRI 06/17/17 0000 Signed Impressions: Service Date/Time: Saturday, June 17, 2017 03:06 - CONCLUSION: 1. No acute findings. 2. Moderate severity central and cortical atrophy with diffuse white matter signal change. Cameron Plummer MD Chest CT 06/16/173 Signed Impressions: Service Date/Time: Friday, June 16, 2017 22:46 - CONCLUSION: 1. Fractures of the left 3rd, 4th, and 5th ribs. 2. Patchy areas of opacity in the upper and lower lung suggesting pulmonary contusion. 3. Bilateral pleural fluid in both the upper and lower chest. No evidence of pneumothorax. 4. Large hiatus hernia. Cameron Plummer MD Shoulder X-Ray 06/16/172124 Signed Impressions: Service Date/Time: Friday, June 16, 2017 21:54 - CONCLUSION: Distal left clavicle an upper left rib fractures. Kyle Ledezma MD Head CT 06/16/172124 Signed Impressions: Service Date/Time: Friday, June 16, 2017 22:39 - CONCLUSION: 1. Soft tissue injury to the left parietal scalp. No evidence of skull fracture. 2. No acute findings in the brain. Moderate severity atrophy. Cameron Plummer MD Objective Remarks GENERAL: confused elderly female SKIN: Warm and dry. HEAD: Normocephalic. EYES: No scleral icterus. No injection or drainage. NECK: Supple, trachea midline. No JVD or lymphadenopathy. CARDIOVASCULAR: Regular rate and rhythm without murmurs, gallops, or rubs. RESPIRATORY: Breath sounds equal bilaterally. No accessory muscle use. GASTROINTESTINAL: Abdomen soft, non-tender, nondistended. MUSCULOSKELETAL: No cyanosis, or edema. LUE in sling BACK: Nontender without obvious deformity. No CVA tenderness. Procedures none A/P Problem List: (1) Multiple fractures of ribs of left side ICD Code: S22.42XA - Multiple fractures of ribs, left side, initial encounter for closed fracture Status: Acute (2) Clavicle fracture ICD Code: S42.009A - Fracture of unspecified part of unspecified clavicle, initial encounter for closed fracture Status: Acute Assessment and Plan 87 yrs old female with 1. Fall/rib fractures/clavicle fracture/pulmonary contusion Patient sustained fracture of the third, fourth and fifth ribs on the left side CT chest shows patchy areas of opacity in the upper and lower lung suggestive of pulmonary contusion Patient also with distal left clavicle fracture, continue left arm sling Supplemental oxygen as needed Pain control with morphine 2. Bilateral lower extremity edema New onset BNP 532 Doppler negative for DVT Echo unremarkable Continue PO Lasix 3. New onset visual symptoms Patient complains of double vision and inability to align her handwriting for the past few days MRI brain without any acute finding 4. Hypertension/fibromyalgia/GERD Continue home medications 5. AMS/Encephalopathy-resolved likely medication side effects Continue low dose Risperdal DVT prophylaxis: B-SCDs Problem Qualifiers (1) Multiple fractures of ribs of left side: Qualified Codes: S22.42XA - Multiple fractures of ribs, left side, initial encounter for closed fracture (2) Clavicle fracture: Qualified Codes: S42.032A - Displaced fracture of lateral end of left clavicle , initial encounter for closed fracture Jamal Ruckre MD Jun 19, 2017 12:16
--- NOTE | 2017-06-19 12:18 | HHI.DS ---
Discharge Summary Admission Date Jun 17, 2017 at 12:51 Discharge Date: Jun 19, 2017 Admitting Diagnosis pulmonary contusion; multiple rib fractures; clavicle fracture (1) Multiple fractures of ribs of left side ICD Code: S22.42XA - Multiple fractures of ribs, left side, initial encounter for closed fracture Status: Acute (2) Clavicle fracture ICD Code: S42.009A - Fracture of unspecified part of unspecified clavicle, initial encounter for closed fracture Status: Acute Procedures none Brief History - From Admission 87-year-old female with a past medical history of fibromyalgia, osteoarthritis, hypertension and GERD presents to the emergency department after sustaining a fall at [facility] facility. She reports she was walking with her walker when she tripped and fell face down. She denies loss of consciousness. She did hit her head and sustained a 2 cm laceration to the left parietal region. CT head was negative for acute findings in the brain. The patient has a distal left clavicle fracture and left upper rib fractures. Additionally, the patient reports a 3 week history of bilateral lower extremity edema that is making it more difficult for her to ambulate. She also reports new onset double vision for the last 4-5 days. She states that when she attempts to write words they no longer align properly. The symptoms are not changed with her glasses. She is very concerned about both the visual symptoms and her lower extremity edema. Her daughter reports that she reported these symptoms to her doctor and lab work was ordered however it has not yet been completed. CBC/BMP: 06/16/17213406/16/172134 Significant Findings Laboratory Tests Test 06/16/17 21:35 Red Blood Count 3.89 MIL/MM3 (4.00-5.30) Hemoglobin 10.5 GM/DL (11.6-15.3) Hematocrit 31.4 % (35.0-46.0) Mean Corpuscular Hemoglobin 26.9 PG (27.0-34.0) Neutrophils (%) (Auto) 71.2 % (16.0-70.0) Monocytes (%) (Auto) 12.1 % (0.0-8.0) Lymphocytes # (Auto) 0.8 TH/MM3 (1.0-4.8) Random Glucose 111 MG/DL (74-106) Calcium Level 8.3 MG/DL (8.5-10.1) Troponin I LESS THAN 0.02 NG/ML B-Type Natriuretic Peptide 532 PG/ML (0-100) Imaging Last Impressions Lower Extremity Ultrasound 06/17/17 0000 Signed Impressions: Service Date/Time: Saturday, June 17, 2017 14:23 - CONCLUSION: No DVT in either lower extremity. Jamal Dunn MD Brain MRI 06/17/17 0000 Signed Impressions: Service Date/Time: Saturday, June 17, 2017 03:06 - CONCLUSION: 1. No acute findings. 2. Moderate severity central and cortical atrophy with diffuse white matter signal change. Cameron Plummer MD Chest CT 06/16/[id number] Signed Impressions: Service Date/Time: Friday, June 16, 2017 22:46 - CONCLUSION: 1. Fractures of the left 3rd, 4th, and 5th ribs. 2. Patchy areas of opacity in the upper and lower lung suggesting pulmonary contusion. 3. Bilateral pleural fluid in both the upper and lower chest. No evidence of pneumothorax. 4. Large hiatus hernia. Cameron Plummer MD Shoulder X-Ray 06/16/172124 Signed Impressions: Service Date/Time: Friday, June 16, 2017 21:54 - CONCLUSION: Distal left clavicle an upper left rib fractures. Kyle Ledezma MD Head CT 06/16/172124 Signed Impressions: Service Date/Time: Friday, June 16, 2017 22:39 - CONCLUSION: 1. Soft tissue injury to the left parietal scalp. No evidence of skull fracture. 2. No acute findings in the brain. Moderate severity atrophy. Cameron Plummer MD PE at Discharge GENERAL: confused elderly female SKIN: Warm and dry. HEAD: Normocephalic. EYES: No scleral icterus. No injection or drainage. NECK: Supple, trachea midline. No JVD or lymphadenopathy. CARDIOVASCULAR: Regular rate and rhythm without murmurs, gallops, or rubs. RESPIRATORY: Breath sounds equal bilaterally. No accessory muscle use. GASTROINTESTINAL: Abdomen soft, non-tender, nondistended. MUSCULOSKELETAL: No cyanosis, or edema. LUE in sling BACK: Nontender without obvious deformity. No CVA tenderness. Hospital Course She may need for Fall/rib fractures/clavicle fracture/pulmonary contusion which pain management was provided accordingly and physical therapy was consulted. Secondary to bilateral streaky edema DVT was ruled out with Doppler and patient was treated with IV Lasix which was subsequently switched to by mouth prior to discharge with significant improvement of symptoms. She was started on a low-dose of Risperdal due to agitation with improvement of mentation. DVT and GI prophylaxis were provided. She was continued on treatment for other chronic medical conditions. Prior to discharge, patient's condition improved and vital remained stable. Pt Condition on Discharge: Stable Discharge Disposition: Discharge to SNF Discharge Time: > 30 minutes Discharge Instructions DIET: Follow Instructions for: Heart Healthy Diet Activities you can perform: Regular-No Restrictions Follow up Referrals: PCP Follow-up - 2-3 Days New Medications: Hydrocodone-Acetaminophen ([place]) 7.5-325 mg Tab 1 TAB PO Q4H PRN for PAIN, #10 TAB 0 Refills Furosemide (Furosemide) 20 Mg Tab 20 MG PO DAILY for Prevent Heart Failure, #30 TAB 3 Refills Potassium Chloride ER (Klor-Con 10) 10 Meq Tab 10 MEQ PO DAILY for Electrolyte Replacement, #30 TAB Risperidone (Risperdal) 0.5 Mg Tab 0.5 MG PO BID for Control Mood Swing, #20 TAB Continued Medications: Aspirin (Aspirin Low Dose) 81 Mg Chew 81 MG CHEW DAILY, TAB 0 Refills Carvedilol ER 24 HR (Coreg Cr 24 HR) 10 Mg Cap 10 MG PO HS, #30 CAP 0 Refills Duloxetine (Lali HENRY) 30 Mg Capdr 40 MG PO DAILY, #30 CAP 0 Refills Ranitidine (Ranitidine) 300 Mg Tab 300 MG PO DAILY for Heartburn Management, #30 TAB 0 Refills Discontinued Medications: Duloxetine (Lali HENRY) 20 Mg Capdr 20 MG PO DAILY, #30 CAP 0 Refills Jamal Rucker MD Jun 19, 2017 12:18
[2017-06-19] MEDS: DULoxetine HCl DR 20 MG CAP PO SCH (22:28)
[2017-06-20 00:40] VITALS: BP 158/78; PULSE 66; RESP 18; TEMP 97.1; O2SAT 92
[2017-06-20 04:35] VITALS: BP 149/73; PULSE 67; RESP 19; TEMP 97.7; O2SAT 93
[2017-06-20 08:00] VITALS: BP 163/66; PULSE 62; RESP 18; TEMP 96.3; O2SAT 93
[2017-06-20] MEDS: risperiDONE 0.5 MG TAB PO SCH (09:00)
[2017-06-20] MEDS: DOCUSATE SODIUM 50 MG/SENNA 8.6 MG TAB PO SCH (09:20)
[2017-06-20] MEDS: POLYETHYLENE GLYCOL 17 GM PKG PO SCH (09:20)
[2017-06-20] MEDS: ASPIRIN 81 MG CHEW TAB CHEW SCH (09:20)
[2017-06-20] MEDS: POTASSIUM CHLORIDE 10 MEQ CONTROLLED RELEASE TAB PO SCH (09:20)
[2017-06-20] MEDS: FAMOTIDINE 20 MG TAB PO SCH (09:20)
[2017-06-20] MEDS: CARVEDILOL 3.125 MG TAB PO SCH (09:21)
[2017-06-20] MEDS: FUROSEMIDE 20 MG TAB PO SCH (09:21)
--- NOTE | 2017-06-20 09:55 | HHI.PR ---
Subjective Remarks Follow up ribs fx/clavicle fx/ LE edema and now confusion 06/18/17-patient seen and examined; quite confused this AM and disrupting care. Afebrile 06/19/17-patient seen and examined, alert and oriented 3, only complains of rib cage pain otherwise stable. Tolerated by mouth without any contractions nausea and vomiting. 06/20/17-patient seen and examined, oriented 3, no acute event overnight. Looking for discharge today. Currently afebrile. Objective Vitals Vital Signs Date Time Temp Pulse Resp B/P (MAP) Pulse Ox O2 Delivery O2 Flow Rate FiO2 06/20/17 08:00 96.3 62 18 163/66 (98) 93 06/20/17 04:35 97.7 67 19 149/73 (98) 93 Manual Cuff/Auscultation 06/20/17 00:40 97.1 66 18 158/78 (104) 92 Automatic Cuff 06/19/17 20:45 92 06/19/17 20:00 96.2 68 18 151/62 (91) 87 06/19/17 15:45 97.8 75 18 109/43 (65) 94 06/19/17 11:39 97.5 74 18 92/47 (62) 95 I/O 06/19/17 06/19/17 06/19/17 06/20/17 06/20/17 06/20/17 07:00 15:00 23:00 07:00 15:00 23:00 Intake Total 120 ml 700 ml 120 ml 120 ml Balance 120 ml 700 ml 120 ml 120 ml Intake Oral 120 ml 700 ml 120 ml 120 ml # Voids 2 3 1 3 # Bowel Movements 0 0 0 Result Diagram: 06/16/17213406/16/172134 Objective Remarks GENERAL: confused elderly female SKIN: Warm and dry. HEAD: Normocephalic. EYES: No scleral icterus. No injection or drainage. NECK: Supple, trachea midline. No JVD or lymphadenopathy. CARDIOVASCULAR: Regular rate and rhythm without murmurs, gallops, or rubs. RESPIRATORY: Breath sounds equal bilaterally. No accessory muscle use. GASTROINTESTINAL: Abdomen soft, non-tender, nondistended. MUSCULOSKELETAL: No cyanosis, or edema. LUE in sling BACK: Nontender without obvious deformity. No CVA tenderness. Procedures none A/P Problem List: (1) Multiple fractures of ribs of left side ICD Code: S22.42XA - Multiple fractures of ribs, left side, initial encounter for closed fracture Status: Acute (2) Clavicle fracture ICD Code: S42.009A - Fracture of unspecified part of unspecified clavicle, initial encounter for closed fracture Status: Acute Assessment and Plan 87 yrs old female with 1. Fall/rib fractures/clavicle fracture/pulmonary contusion Patient sustained fracture of the third, fourth and fifth ribs on the left side CT chest shows patchy areas of opacity in the upper and lower lung suggestive of pulmonary contusion Patient also with distal left clavicle fracture, continue left arm sling Supplemental oxygen as needed Pain control with morphine Ready for discharge-improving 2. Bilateral lower extremity edema New onset BNP 532 Doppler negative for DVT Echo unremarkable Continue PO Lasix 3. New onset visual symptoms Patient complains of double vision and inability to align her handwriting for the past few days MRI brain without any acute finding 4. Hypertension/fibromyalgia/GERD Continue home medications 5. AMS/Encephalopathy-resolved likely medication side effects Continue low dose Risperdal DVT prophylaxis: B-SCDs Problem Qualifiers (1) Multiple fractures of ribs of left side: Qualified Codes: S22.42XA - Multiple fractures of ribs, left side, initial encounter for closed fracture (2) Clavicle fracture: Qualified Codes: S42.032A - Displaced fracture of lateral end of left clavicle , initial encounter for closed fracture Jamal Rucker MD Jun 20, 2017 09:54
[2017-06-20 12:00] VITALS: BP 176/66; PULSE 73; RESP 16; TEMP 97.4; O2SAT 95
[2017-06-20] MEDS ORDERED: cloNIDine HCL 0.2 MG TAB PO ONE (13:15)
[2017-06-20] MEDS ORDERED: SOD PHOSPHATE/SOD BIPHOSPHATE (ADULT) ENEMA 133ML PR ONE (14:15)
== END 2017-06-20 17:11 | DRG 205 ==
LOC: NEPC 20:45 → NEDA 06-17 00:12 → NEPGCP 06-17 00:42 → OBSVTOIN 06-17 12:51 → N06A 06-18 01:06
PROVIDERS: ADMIT Hospitalist; ATTEND Hospitalist
PROC: 0HQ0XZZ Repair Scalp Skin, External Approach (ICD-10-PCS; principal; 2017-06-17)
DX: S27.321A Contusion of lung, unilateral, initial encounter (principal); G92 Toxic encephalopathy; S22.42XA Multiple fractures of ribs, left side, initial encounter for closed fracture; S01.01XA Laceration without foreign body of scalp, initial encounter; H53.2 Diplopia; I10 Essential (primary) hypertension; R60.0 Localized edema; M79.7 Fibromyalgia; K21.9 Gastro-esophageal reflux disease without esophagitis; N32.81 Overactive bladder; S42.032A Displaced fracture of lateral end of left clavicle, initial encounter for closed fracture; G25.81 Restless legs syndrome; K59.00 Constipation, unspecified; M19.90 Unspecified osteoarthritis, unspecified site; W01.0XXA Fall on same level from slipping, tripping and stumbling without subsequent striking against object, initial encounter; Y93.01 Activity, walking, marching and hiking; Z88.5 Allergy status to narcotic agent; Z96.651 Presence of right artificial knee joint
CPT/HCPCS: 70450; 70551; 71260; 73030; 80048; 82550; 82552; 83880; 84484; 85025; 90714; 93005; 93306; 93970; G8987-GP; G8988-GP; J1885; J1940; J2270; J2405; Q9967

== ENCOUNTER → 2017-12-26 | Outpatient (CLI) | payer MEDICARE, OTHER ==
[~2017-12-26] MED LIST changes: -ADVI200C5 PO; +ASPI81CH6 CHEW; +BACT800T5 PO; -COLA100C3 PO; +CYMB30CA PO; +DULC100C PO; +ENSULIQ7; +FURO20TA PO; +HYDR-3288 PO; -HYDR-3535 PO; +KLOR10TA PO; +MILKSUS PO; -MIRA33504 PO; +MULT-65 PO; +NITR0.4S SL; +OMEP20TA93 PO; -OXYB5TAB8 PO; -RANI300T PO; +RISP0.5T25 PO; +TYLE325T PO
--- NOTE | 2017-12-26 15:02 | RADRPT ---
EXAM DATE: 12/26/2017 2:38 PM EDT AGE/SEX: 87 years / Female INDICATIONS: Dyspragia CLINICAL DATA: This is the patient's subsequent encounter. Patient reports that signs and symptoms h ave been present for 1 day and indicates a pain score of 0/10. MEDICAL/SURGICAL HISTORY: . Gastroesophageal reflux disease. Arthritis. Hypertension. . : Hysterectomy. Right shoulder. Right knee. Left hip. Cataracts COMPARISON: No prior exams available for comparison. FLUORO TIME: 1.8 min IMAGE COUNT: 0 FINDINGS: A modified barium swallow was performed with speech pathology. Patient was given a variety of liquids to swallow. For a full detailed report, see report by the speech pathologist. No aspiration or penetration was seen. The patient does have a Zenker's diverticulum. CONCLUSION: Zenker's diverticulum. Electronically signed by: Kyle Ledezma MD 12/26/2017 3:00 PM EDT
== END ==
LOC: HRAD 13:33
PROVIDERS: ATTEND Family Medicine
DX: R13.10 Dysphagia, unspecified (principal)
CPT/HCPCS: 74230; 92611; G8996; G8997; G8998

== ENCOUNTER 2018-02-11 09:15 | Inpatient (IN) ==
--- NOTE | 2018-02-11 11:11 | XR ---
EXAM DATE: 02/11/2018 11:05 AM EDT AGE/SEX: 87 years / Female INDICATIONS: Short of breath, evaluate infiltrate CLINICAL DATA: This is the patient's initial encounter. Patient reports that signs and symptoms have been present for 1 day and indicates a pain score of Nonresponsive. MEDICAL/SURGICAL HISTORY: Gastroesophageal reflux disease. Hypertension. fibromyalgia None. COMPARISON: No prior exams available for comparison. FINDINGS: A single AP view of the chest demonstrates the lungs to be symmetrically aerated without evidence of mass, infiltrate or effusion. The cardiomediastinal contours are mildly prominent. Mild basilar atel ectasis or scarring. CONCLUSION: Cardiomegaly with minimal basilar atelectasis or scarring. No pneumothorax. Electronically signed by: Leeroy Rascon MD 02/11/2018 11:10 AM EDT
[2018-02-11 11:12] LABS: Eos # (Auto) 0.1 th/mm3 (0.0-0.4); Eos % (Auto) 1.9 % (0.0-4.0); Lymph # (Auto) 0.9 th/mm3 (1.0-4.8); Lymph % (Auto) 18.8 % (9.0-44.0); Mean Corpuscular Hemoglobin 19.4 pg (27.0-34.0); Mean Corpuscular Volume 64.8 fL (80.0-100.0); Mean Platelet Volume 8.1 fL (7.0-11.0); Mono # (Auto) 0.6 th/mm3 (0.0-0.9); Mono % (Auto) 12.5 % (0.0-8.0); Neut # (Auto) 3.2 th/mm3 (1.8-7.7); Neut % (Auto) 65.8 % (16.0-70.0); Platelet Count 306 th/mm3 (150-450); Red Cell Distribution Width 19.7 % (11.6-17.2); White Blood Count 4.9 th/mm3 (4.0-11.0)
[2018-02-11 11:16] LABS: Mean Corpuscular HGB Conc 29.9 % (32.0-36.0)
--- NOTE | 2018-02-11 11:16 | ED ---
HPI General Chief complaint: Recheck/Abnormal Lab/Rx Stated complaint: Medical Complaint Time Seen by Provider: 02/11/18 09:35 Source: patient, family, EMS and RN notes reviewed Mode of arrival: EMS History of Present Illness HPI narrative: 87yF sent in from assisted living facility for anemia. The patient states that she has been having dysuria for the past several days, had a UA and labs checked yesterday, and was told that she may need a blood transfusion. She admits to generalized weakness but denies lightheadedness/ dizziness, chills, chest pain, dyspnea, cough, diarrhea, or blood in stool. She does not use any anticoagulants or antiplatelets. Related Data Allergies Allergy/AdvReac Type Severity Reaction Status Date / Time buspirone AdvReac Intermediate Drowsiness Verified 02/11/18 12:10 codeine AdvReac Intermediate Gastrointestinal Verified 02/11/18 12:10 Upset duloxetine AdvReac Intermediate Confusion Verified 02/11/18 12:10 lorazepam AdvReac Intermediate Drowsiness Verified 02/11/18 12:10 pregabalin AdvReac Intermediate Gastrointestinal Verified 02/11/18 12:10 Upset Review of Systems Except as stated in HPI: all other systems reviewed are negative Constitutional Denies fever(s) Eyes Denies blurry vision ENT Denies nasal congestion Cardiovascular Denies chest pain Respiratory Denies cough Gastrointestinal Denies nausea Genitourinary Denies dysuria Musculoskeletal Denies back pain Neurologic Denies confusion Psychiatric Denies confusion PMFSH History History Provided By: Patient Medical History Medical History Arthritis (Acute) Fibromyalgia (Acute) Fracture of left hip (Acute) Hypertension (Acute) Osteoporosis (Acute) Restless leg syndrome (Acute) Social History Social History Substance History: No History of Abuse Second Hand Smoke Exposure: No Smoking Status: Never smoker How Often Do You Have a Drink Containing Alcohol: Never Immunization History Tetanus Immunization: Unsure Hx Influenza Vaccine This Season: No Exam Const General: healthy appearing and no acute distress HENMT Head: normocephalic and atraumatic Face and sinus: normal facial exam Eyes General: appearance normal, both eyes and all related structures Pupils: PERRL Chest Chest: normal inspection of the chest Resp Effort & Inspection: normal respiratory effort Auscultation: no rhonchi and no wheezes Cardio Rate: regular rate Rhythm: regular rhythm GI Other: Soft and non-tender throughout Normal external rectal exam Stool brown, guaiac negative Skin General: no rashes or lesions noted Neuro General: alert, awake, oriented x3 and no focal motor deficits Psych Affect: normal affect Procedures Hemaprompt Stool Procedural Steps Taken: specimen placed in appropriate test area, developer placed on specimen and control areas and controls appropriately positive and negative Hemaprompt Stool Result: positive Course Initial Documented Vital Signs Temperature 98.2 F 02/11/18 09:27 Pulse Rate 78 02/11/18 09:27 Respiratory Rate 16 02/11/18 09:27 Blood Pressure 104/54 L 02/11/18 09:27 Pulse Oximetry 95 02/11/18 09:27 Last Documented Vital Signs Temperature 98.2 F 02/11/18 09:27 Pulse Rate 74 02/11/18 13:38 Respiratory Rate 18 02/11/18 13:38 Blood Pressure 118/61 02/11/18 13:38 Pulse Oximetry 98 02/11/18 13:38 Medical Decision Making [facility] Narrative Medical decision making narrative: Assessment: 87yF presenting with anemia Plan: EKG and monitor Labs, including type and screen CXR CT abd/ pelvis Addendum: This patient cannot go home as she has acute blood loss anemia requiring transfusions and is guaiac (+). She will need post-transfusion labs and further workup. Patient understands and agrees with plan. Case discussed with family medicine residents. Differential Diagnosis Differential Diagnosis: Differential diagnosis includes, but is not limited to: GI bleed, anemia, dehydration, electrolyte abnormality Lab Data Lab results reviewed: Yes I reviewed the patient's lab results. Result diagrams: 02/11/18 10:15 02/11/18 10:15 Lab Results 02/11/18 02/11/18 02/11/18 Range/Units 10:15 10:15 10:15 WBC 4.9 (4.0-11.0) th/mm3 RBC 3.20 L (4.00-5.30) mil/mm3 Hgb 6.2 L* (11.6-15.3) gm/dL Hct 20.7 L* (35.0-46.0) % MCV 64.8 L (80.0-100.0) fL MCH 19.4 L (27.0-34.0) pg MCHC 29.9 L (32.0-36.0) % RDW 19.7 H (11.6-17.2) % Plt Count 306 (150-450) th/mm3 MPV 8.1 (7.0-11.0) fL Prelim Diff (Auto) Not Reportable Neut % (Auto) 65.8 (16.0-70.0) % Lymph % (Auto) 18.8 (9.0-44.0) % Rowan % (Auto) 12.5 H (0.0-8.0) % Eos % (Auto) 1.9 (0.0-4.0) % Baso % (Auto) 1.0 (0.0-2.0) % Neut # (Auto) 3.2 (1.8-7.7) th/mm3 Lymph # (Auto) 0.9 L (1.0-4.8) th/mm3 Rowan # (Auto) 0.6 (0.0-0.9) th/mm3 Eos # (Auto) 0.1 (0.0-0.4) th/mm3 Baso # (Auto) 0.0 (0.0-0.2) th/mm3 WBC Differential . Diff Scan Auto diff confirmed Differential Comment . Sodium 139 (136-145) meq/L Potassium 3.7 (3.5-5.1) meq/L Chloride 106 (98-107) meq/L Carbon Dioxide 25.9 (21.0-32.0) meq/L Anion Gap 7 (5-15) meq/L BUN 20 H (7-18) mg/dL Creatinine 0.68 (0.50-1.00) mg/dL Estimated GFR 82 L (>89) mL/min Random Glucose 89 (74-106) mg/dL Calcium 8.2 L (8.5-10.1) mg/dL Total Bilirubin 0.4 (0.2-1.0) mg/dL AST 14 L (15-37) U/L ALT 14 (10-53) U/L Alkaline Phosphatase 75 (45-117) U/L Total Protein 7.3 (6.4-8.2) g/dL Albumin 3.5 (3.4-5.0) g/dL Urine Color (Yellw/Straw) Urine Clarity (Clear) Urine pH (5.0-8.5) Ur Specific [place] (1.002-1.035) Urine Protein (Neg-Trace) mg/dL Urine Glucose (UA) (Negative) mg/dL Urine Ketones (Negative) mg/dL Urine Occult Blood (Negative) Urine Nitrate (Negative) Urine Bilirubin (Negative) Urine Urobilinogen (Less than 2) mg/dL Ur Leukocyte Esterase (Negative) Urine RBC (0-3) /hpf Urine WBC (0-5) /hpf Ur Squamous Epith Cells (0-5) /hpf Urine Bacteria (None) /hpf Urine Mucus (Occasional) /lpf Micro UA Comment Urine Culture Comments Blood Type O Positive Blood Type Recheck Required Antibody Screen Negative MTS Gel Crossmatch 02/11/18 02/11/18 Range/Units 11:10 11:58 WBC (4.0-11.0) th/mm3 RBC (4.00-5.30) mil/mm3 Hgb (11.6-15.3) gm/dL Hct (35.0-46.0) % MCV (80.0-100.0) fL MCH (27.0-34.0) pg MCHC (32.0-36.0) % RDW (11.6-17.2) % Plt Count (150-450) th/mm3 MPV (7.0-11.0) fL Prelim Diff (Auto) Neut % (Auto) (16.0-70.0) % Lymph % (Auto) (9.0-44.0) % Rowan % (Auto) (0.0-8.0) % Eos % (Auto) (0.0-4.0) % Baso % (Auto) (0.0-2.0) % Neut # (Auto) (1.8-7.7) th/mm3 Lymph # (Auto) (1.0-4.8) th/mm3 Rowan # (Auto) (0.0-0.9) th/mm3 Eos # (Auto) (0.0-0.4) th/mm3 Baso # (Auto) (0.0-0.2) th/mm3 WBC Differential Diff Scan Differential Comment Sodium (136-145) meq/L Potassium (3.5-5.1) meq/L Chloride (98-107) meq/L Carbon Dioxide (21.0-32.0) meq/L Anion Gap (5-15) meq/L BUN (7-18) mg/dL Creatinine (0.50-1.00) mg/dL Estimated GFR (>89) mL/min Random Glucose (74-106) mg/dL Calcium (8.5-10.1) mg/dL Total Bilirubin (0.2-1.0) mg/dL AST (15-37) U/L ALT (10-53) U/L Alkaline Phosphatase (45-117) U/L Total Protein (6.4-8.2) g/dL Albumin (3.4-5.0) g/dL Urine Color Yellow (Yellw/Straw) Urine Clarity Clear (Clear) Urine pH 7.0 (5.0-8.5) Ur Specific [place] 1.006 (1.002-1.035) Urine Protein Negative (Neg-Trace) mg/dL Urine Glucose (UA) Negative (Negative) mg/dL Urine Ketones Negative (Negative) mg/dL Urine Occult Blood Small H (Negative) Urine Nitrate Negative (Negative) Urine Bilirubin Negative (Negative) Urine Urobilinogen Less than 2 (Less than 2) mg/dL Ur Leukocyte Esterase Small H (Negative) Urine RBC 1 (0-3) /hpf Urine WBC 14 H (0-5) /hpf Ur Squamous Epith Cells <1 (0-5) /hpf Urine Bacteria Moderate H (None) /hpf Urine Mucus Few H (Occasional) /lpf Micro UA Comment Culture indicated Urine Culture Comments Culture indicated Blood Type Blood Type Recheck Antibody Screen MTS Gel Crossmatch See Detail Imaging Data Radiologist's impression: Abdomen/Pelvis CT 02/11/18 10:24 CONCLUSION: 1. No acute findings within the abdomen and pelvis. Specifically no free fluid or evidence for retroperitoneal hemorrhage. 2. Nonacute findings include moderate hiatal hernia. Also mild fatty liver. Scoliosis with advanced degenerative disc disease. Previous left hip replacement. Chest X-Ray 02/11/18 10:24 CONCLUSION: Cardiomegaly with minimal basilar atelectasis or scarring. No pneumothorax. ECG Data Attestation: I personally reviewed and interpreted this ECG as follows: Interpretation: Rate: 78 BPM Rhythm: Sinus Diana: Normal Intervals: Normal intervals, no blocks, QTc 434 ms Q waves: V2 T waves: Upright, no inversions ST segments: <1 mm depressions in V3-V6, no reciprocal depressions Impression: Non-specific EKG, no significant changes as compared to EKG from 05/2017. Discharge Plan Discharge Disposition Patient Disposition: 30 Still Patient Discharge Condition Condition: Stable Discharge Details Diagnosis: Anemia requiring transfusions, Guaiac positive stools, Acute UTI Physicians Team ED Provider: Joi Matthew Primary Care Provider: Fidencio Harris Discharge Interventions Interventions: Vital Signs Last Done: 02/11/18 13:38 Status ED Status: With Doctor
[2018-02-11 11:20] LABS: Hematocrit 20.7 % (35.0-46.0); Hemoglobin 6.2 gm/dL (11.6-15.3)
[2018-02-11 11:37] LABS: Alanine Aminotransferase 14 U/L (10-53); Albumin 3.5 g/dL (3.4-5.0); Anion Gap 7 meq/L (5-15); Aspartate Aminotransferase 14 U/L (15-37); Blood Urea Nitrogen 20 mg/dL (7-18); Calcium 8.2 mg/dL (8.5-10.1); Carbon Dioxide 25.9 meq/L (21.0-32.0); Chloride 106 meq/L (98-107); Glomerular Filtration Rate 82 mL/min (>89); Glucose,Random 89 mg/dL (74-106); Potassium 3.7 meq/L (3.5-5.1); Sodium 139 meq/L (136-145)
[2018-02-11 11:40] LABS: Alkaline Phosphatase 75 U/L (45-117); Total Protein 7.3 g/dL (6.4-8.2)
[2018-02-11 11:59] LABS: Bacteria,Urine Moderate /hpf; Bilirubin,Urine Negative (Negative); Clarity,Urine Clear (Clear); Color,Urine Yellow (Yellw/Straw); Glucose,Urine (UA) Negative (Negative); Leukocyte Esterase,Urine Small (Negative); Mucus,Urine Few /lpf (Occasional); Nitrite,Urine Negative (Negative); Specific Gravity,Urine 1.006 (1.002-1.035); Squamous Epithelial Cell,Urine <1 /hpf (0-5)
[2018-02-11] MEDS ORDERED: Sodium Chlor 0.9% Inj 250 ML IV.SIG SCH (12:00)
--- NOTE | 2018-02-11 13:20 | CT ---
EXAM DATE: 02/11/2018 12:59 PM EDT AGE/SEX: 87 years / Female INDICATIONS: Hgb 6.9, evaluate for bleed. CLINICAL DATA: This is the patient's initial encounter. Patient reports that signs and symptoms have been present for 1 day and indicates a pain score of 5/10. MEDICAL/SURGICAL HISTORY: Hypertension. None. ORAL CONTRAST: No oral contrast ingested. RADIATION DOSE: 6.11 CTDI (mGy) [place] [facility] [place] 06/28/2016. . TECHNIQUE: Multiple contiguous axial images were obtained through the abdomen and pelvis following b olus infusion of 70 ml Omnipaque 350 (iohexol) nonionic water-soluble contrast as a single exam dos e. No oral contrast ingested. Using automated exposure control and adjustment of the mA and/or kV ac cording to patient size, radiation dose was kept as low as reasonably achievable to obtain optimal di agnostic quality images. DICOM format image data is available electronically for review and comparis on. FINDINGS: There is a moderate-sized hiatal hernia which is increased in size June 2016 comparison. Lung bas es demonstrate some dependent atelectasis. Mild coronary calcifications. No acute findings in the liver, spleen, adrenals, kidneys or pancreas. No calcified gallstones or abigail iary ductal dilatation. There is no free fluid. No retroperitoneal hemorrhage or adenopathy. No pelvic masses. Previous left hip replacement. Moderate scoliosis. Advanced degenerative disc disea se in the lumbar spine. CONCLUSION: 1. No acute findings within the abdomen and pelvis. Specifically no free fluid or evidence for retro peritoneal hemorrhage. 2. Nonacute findings include moderate hiatal hernia. Also mild fatty liver. Scoliosis with advanced degenerative disc disease. Previous left hip replacement. Electronically signed by: Leeroy Rascon MD 02/11/2018 1:19 PM EDT
--- NOTE | 2018-02-11 14:43 | P.HPFP ---
History of Present Illness Primary Care Physician: Fidencio Harris MD History of Present Illness: 87 y/o F, states she does not know why she is here today. However, she is AAOx3. She was feeling very "sick" before she came in here. She has been feeling tired "for many years" with fibromyalgia, but she feels more weak right now. Patient keeps repeating "I came here for low blood pressure, I do not know why". Patient does admit that at some point she has been told that she needs blood. She states she cannot remember a lot of things and cannot provide us a history. She does not remember her medical history. She does not remember her medication list. She says that she has pain all of her body and that is normal for her, and she does not have any new pains anywhere. On review of systems, she admits to pain and burning on urination for the last 2-3 days. She states she has chronic constipation, and no recent diarrhea. Denies any chest pain or shortness of breath. Denies dizziness. Denies current confusion. - Diagnosis (1) Anemia requiring transfusions (2) Guaiac positive stools (3) Acute UTI (4) Cardiomegaly (5) Dementia (6) Fibromyalgia (7) Hypertension (8) Nutrition, metabolism, and development symptoms Inpatient Certification: I certify that the inpatient services were ordered in accordance with Medicare regulations governing the order. This includes certification that hospital inpatient services are reasonable and necessary and in the case of services not specified as inpatient-only under 42 CFR 419.22(n), that they are appropriately provided as inpatient services in accordance to with the 2-midnight benchmark under 43 CFR 412.3(e) Review of Systems unobtainable due to mental condition, unobtainable due to mental status ( Patient keeps his pain in the same things over and over again) PMFSH - History History Provided By: Patient - Medical History Medical History: Medical History (Last Updated 02/11/18 @ 16:59 by Ning Campos MD, R2) Dementia (Acute) Cardiomegaly (Acute) Fibromyalgia (Acute) Osteoporosis (Acute) Hypertension (Acute) Arthritis Fracture of left hip Restless leg syndrome - Tobacco History Second Hand Smoke Exposure: No Smoking Status: Never smoker - Alcohol History How Often Do You Have a Drink Containing Alcohol: Never - Substance Use History Substance History: No History of Abuse - Immunization History Tetanus Immunization: Unsure Hx Influenza Vaccine This Season: No Medications and Allergies Active Medications: Active Medications Sodium Chloride (Ns Inj) 250 mls @ 15 mls/hr IV.SIG ONCE MADDY Stop: 02/12/18 04:39 Allergies Allergy/AdvReac Type Severity Reaction Status Date / Time buspirone AdvReac Intermediate Drowsiness Verified 02/11/18 12:10 codeine AdvReac Intermediate Gastrointestinal Verified 02/11/18 12:10 Upset duloxetine AdvReac Intermediate Confusion Verified 02/11/18 12:10 lorazepam AdvReac Intermediate Drowsiness Verified 02/11/18 12:10 pregabalin AdvReac Intermediate Gastrointestinal Verified 02/11/18 12:10 Upset Exam Vital signs: Vital Signs 02/11/18 09:27 02/11/18 09:38 02/11/18 13:38 Temperature 98.2 F Pulse Rate 78 78 74 Respiratory Rate 16 20 18 Blood Pressure 104/54 L 118/61 118/61 Pulse Oximetry 95 96 98 Intake & Output 02/10/18 02/11/18 02/11/18 18:59 06:59 18:59 Intake Total 100 / 100 Balance 100 / 100 Weight 53.268 kg Intake: IV 100 / 100 Rocephin Inj 1,000 MG In NS Inj 100 / 100 100 ML @ 200 mls/hr IV.SIG ONCE ONE Rx#:[id number] - Constitutional no acute distress - Routine HEENT Exam Head: Present: normocephalic - Routine Respiratory Exam Present: CTA bilaterally (ascultated anteriorly, pt cannot situp). Absent: accessory muscle use, decreased breath sounds - Routine Cardiovascular Exam Present: RRR, S1, S2, murmur (4/6 systolic murmur) - Routine Abdominal Exam Present: soft, normoactive bowel sounds. Absent: tenderness - Routine Extremities Exam Absent: cyanosis, clubbing, edema - Routine Skin Exam Present: intact - Routine Neurological Exam Present: alert, oriented X3, CN II-XII intact Results - Labs Result diagrams: 02/11/18 10:15 02/11/18 10:15 Abnormal lab results 02/11/18 02/11/18 02/11/18 Range/Units 10:15 10:15 11:10 RBC 3.20 L (4.00-5.30) mil/mm3 Hgb 6.2 L* (11.6-15.3) gm/dL Hct 20.7 L* (35.0-46.0) % MCV 64.8 L (80.0-100.0) fL MCH 19.4 L (27.0-34.0) pg MCHC 29.9 L (32.0-36.0) % RDW 19.7 H (11.6-17.2) % Mason % (Auto) 12.5 H (0.0-8.0) % Lymph # (Auto) 0.9 L (1.0-4.8) th/mm3 BUN 20 H (7-18) mg/dL Estimated GFR 82 L (>89) mL/min Calcium 8.2 L (8.5-10.1) mg/dL AST 14 L (15-37) U/L Urine Occult Blood Small H (Negative) Ur Leukocyte Esterase Small H (Negative) Urine WBC 14 H (0-5) /hpf Urine Bacteria Moderate H (None) /hpf Urine Mucus Few H (Occasional) /lpf MTS Gel Crossmatch 02/11/18 Range/Units 11:58 RBC (4.00-5.30) mil/mm3 Hgb (11.6-15.3) gm/dL Hct (35.0-46.0) % MCV (80.0-100.0) fL MCH (27.0-34.0) pg MCHC (32.0-36.0) % RDW (11.6-17.2) % Mason % (Auto) (0.0-8.0) % Lymph # (Auto) (1.0-4.8) th/mm3 BUN (7-18) mg/dL Estimated GFR (>89) mL/min Calcium (8.5-10.1) mg/dL AST (15-37) U/L Urine Occult Blood (Negative) Ur Leukocyte Esterase (Negative) Urine WBC (0-5) /hpf Urine Bacteria (None) /hpf Urine Mucus (Occasional) /lpf MTS Gel Crossmatch See Detail Short CBC 02/11/18 Range/Units 10:15 WBC 4.9 (4.0-11.0) th/mm3 Hgb 6.2 L* (11.6-15.3) gm/dL Hct 20.7 L* (35.0-46.0) % Plt Count 306 (150-450) th/mm3 BMP 02/11/18 10:15 Sodium 139 Potassium 3.7 Chloride 106 Carbon Dioxide 25.9 BUN 20 H Creatinine 0.68 Calcium 8.2 L Liver Function 02/11/18 Range/Units 10:15 Total Bilirubin 0.4 (0.2-1.0) mg/dL AST 14 L (15-37) U/L ALT 14 (10-53) U/L Alkaline Phosphatase 75 (45-117) U/L Albumin 3.5 (3.4-5.0) g/dL Urine 02/11/18 Range/Units 11:10 Urine Color Yellow (Yellw/Straw) Urine Clarity Clear (Clear) Urine pH 7.0 (5.0-8.5) Ur Specific [place] 1.006 (1.002-1.035) Urine Protein Negative (Neg-Trace) mg/dL Urine Glucose (UA) Negative (Negative) mg/dL - Imaging Impressions Abdomen/Pelvis CT 02/11/18 10:24 CONCLUSION: 1. No acute findings within the abdomen and pelvis. Specifically no free fluid or evidence for retroperitoneal hemorrhage. 2. Nonacute findings include moderate hiatal hernia. Also mild fatty liver. Scoliosis with advanced degenerative disc disease. Previous left hip replacement. Chest X-Ray 02/11/18 10:24 CONCLUSION: Cardiomegaly with minimal basilar atelectasis or scarring. No pneumothorax. Caprini VTE Risk Assessment Caprini VTE Risk Assessment: No/Low Risk (score <= 1) Caprini Risk Assessment Model: Point Value = 1 Point Value = 2 Point Value = 3 Point Value = 5 Age 41-60 Minor surgery BMI > 25 kg/m2 Swollen legs Varicose veins or History of unexplained or recurrent spontaneous Oral contraceptives or hormone replacement Sepsis (< 1 month) Serious lung disease, including pneumonia (< 1 month) Abnormal pulmonary function Acute myocardial infarction Congestive heart failure (< 1 month) History of inflammatory bowel disease Medical patient at bed rest Age 61-74 Arthroscopic surgery Major open surgery (> 45 min) Laparoscopic surgery (> 45 min) Malignancy Confined to bed (> 72 hours) Immobilizing plaster cast Central venous access Age >= 75 History of VTE Family history of VTE Factor V Leiden Prothrombin [id number] Lupus anticoagulant Anticardiolipin antibodies Elevated serum homocysteine Heparin-induced thrombocytopenia Other congenital or acquired thrombophilia Stroke (< 1 month) Elective arthroplasty Hip, pelvis, or leg fracture Acute spinal cord injury (< 1 month) Prophylaxis Regimen: Total Risk Factor Score Risk Level Prophylaxis Regimen 0-1 Low Early ambulation 2 Moderate Order ONE of the following: *Sequential Compression Device (SCD) *Heparin 5000 units SQ BID 3-4 Higher Order ONE of the following medications: *Heparin 5000 units SQ TID *Enoxaparin/Lovenox 40 mg SQ daily (WT < 150 kg, CrCl > 30 mL/min) *Enoxaparin/Lovenox 30 mg SQ daily (WT < 150 kg, CrCl > 10-29 mL/min) *Enoxaparin/Lovenox 30 mg SQ BID (WT < 150 kg, CrCl > 30 mL/min) AND/OR *Sequential Compression Device (SCD) 5 or more Highest Order ONE of the following medications: *Heparin 5000 units SQ TID (Preferred with Epidurals) *Enoxaparin/Lovenox 40 mg SQ daily (WT < 150 kg, CrCl > 30 mL/min) *Enoxaparin/Lovenox 30 mg SQ daily (WT < 150 kg, CrCl > 10-29 mL/min) *Enoxaparin/Lovenox 30 mg SQ BID (WT < 150 kg, CrCl > 30 mL/min) AND *Sequential Compression Device (SCD) Assessment and Plan - Assessment (1) Anemia requiring transfusions Code(s): D64.9 - Anemia, unspecified Status: Acute Plan: Hgb was 10.5 in June, currently 6.2, guaiac positive Difficult historian, but possibly increased fatigue recently? Transfuse 1 unit PRBCs with transfusion goal over 7.0 Follow-up with GI for elderly woman, acute anemia, positive guaiac -Scheduling for EGD/colonoscopy tomorrow -Liquids today, mag citrate prep, n.p.o. at midnight Follow-up posttransfusion H&H, f/u serial H&H (2) Guaiac positive stools Code(s): R19.5 - Other fecal abnormalities Status: Acute Plan: See plans of GI recommendation above (3) Acute UTI Code(s): N39.0 - Urinary tract infection, site not specified Status: Acute Plan: UA: Small leukoesterase, associated with urinary symptoms Follow-up urine culture Status post Rocephin 1 g Continue Rocephin 1g q24h until can tolerate PO (4) Cardiomegaly Code(s): I51.7 - Cardiomegaly Status: Acute Plan: Cardiomegaly seen on chest x-ray, 4 out of 6 systolic murmur on exam, unknown past medical history Possible history of heart disease or CHF? EKG normal, follow-up BNP (5) Dementia Code(s): F03.90 - Unspecified dementia without behavioral disturbance Status: Acute Plan: Likely dementia based on encounter Follow-up with family for full history (6) Fibromyalgia Code(s): M79.7 - Fibromyalgia Status: Acute Plan: Chronic pain, patient sees a specialist for this Does not know home meds (7) Hypertension Code(s): I10 - Essential (primary) hypertension Status: Acute Plan: History of hypertension per patient, however patient does not know home meds BP WNL Add vasotec PRN (8) Nutrition, metabolism, and development symptoms Code(s): R63.8 - Other symptoms and signs concerning food and fluid intake Status: Acute Plan: Fluids: Normal saline at maintenance, clear liquid diet until midnight after bedside swallow eval Electrolytes: BMP normal, follow-up and replete as needed Nutrition: See above DVT prophylaxis: SCDs only, concern for GI bleed
[2018-02-11] MEDS ORDERED: Acetaminophen 325 MG Tablet PO PRN (14:51)
[2018-02-11] MEDS ORDERED: Bisacodyl 10 MG Supp RECTAL PRN (14:51)
--- NOTE | 2018-02-11 16:24 | P.CONGI ---
History of Present Illness Consult date: 02/11/18 Consult reason: GIB, anemia Chief complaint: Anemia, GI bleed History of Present Illness: This is a 87 yo F who was sent from her [facility] for evaluation of anemia. Pt reports has not been feeling well lately. She reports chronic constipation, drinks prune juice every morning which normally helps but states she has been out of her routine lately. States it took her an hour to have a BM this morning and required some straining. Pt does report noticing some dark red blood mixed in with her stool this morning and she thinks this has happened prior. Pt reports generalized abdominal pain that she states is secondary to the constipation. Denies nausea, vomiting, heartburn. She thinks she may have had an EGD in the past but is not sure. Does not think she has ever had a colonoscopy. Pt denies history of anemia, does not think she has ever had a blood transfusion in the past. Unsure if she takes iron or B12 supplements, states she takes 16 pills a day. <Nevin Pace - Last Filed: 02/11/18 16:05> Review of Systems Gastrointestinal: Reports abdominal pain, Reports bright, red blood in stools, Reports constipation, Denies black, tarry stools, Denies heartburn, Denies nausea, Denies vomiting <Nevin Pace - Last Filed: 02/11/18 16:05> PMFSH - History History Provided By: Patient - Medical History Medical History: Medical History (Last Reviewed 02/11/18 @ 11:53 by Joi Matthew DO) Arthritis Fibromyalgia Fracture of left hip Hypertension Osteoporosis Restless leg syndrome - Tobacco History Second Hand Smoke Exposure: No Smoking Status: Never smoker - Alcohol History How Often Do You Have a Drink Containing Alcohol: Never - Substance Use History Substance History: No History of Abuse - Immunization History Tetanus Immunization: Unsure Hx Influenza Vaccine This Season: No <Nevin Pace - Last Filed: 02/11/18 16:05> - Medical History Medical History: Medical History (Last Reviewed 02/11/18 @ 11:53 by Joi Matthew DO) Arthritis Fibromyalgia Fracture of left hip Hypertension Osteoporosis Restless leg syndrome <Rhianna Zuniga - Last Filed: 02/11/18 19:29> Medications and Allergies Active Medications: Active Medications Acetaminophen (Tylenol) 650 mg PO Q4H PRN PRN Reason: Temp > 100.4 Al Hydroxide/Mg Hydroxide (Milk Of Magnesia Liq) 30 ml PO Q12H PRN PRN Reason: Mild Constipation Sodium Chloride (Ns Inj) 250 mls @ 15 mls/hr IV.SIG ONCE MADDY Stop: 02/12/18 04:39 Last Admin: 02/11/18 14:56 Dose: 15 mls/hr Sodium Chloride (Ns Inj) 1,000 mls @ 90 mls/hr IV.CONT .Q11H7M MADDY Lactulose (Lactulose Liq) 30 ml PO DAILY PRN PRN Reason: SEVERE CONSITIPATION Ondansetron HCl (Zofran Inj) 4 mg IV.PUSH Q6H PRN PRN Reason: NAUSEA OR VOMITING Senna/Docusate Sodium (Marci-Colace) 1 tab PO BID [facility] Sennosides (Senokot) 17.2 mg PO Q12H PRN PRN Reason: Moderate Constipation <Nevin Pace - Last Filed: 02/11/18 16:05> Active Medications: Active Medications Acetaminophen (Tylenol) 650 mg PO Q4H PRN PRN Reason: Temp > 100.4 Al Hydroxide/Mg Hydroxide (Milk Of Magnesia Liq) 30 ml PO Q12H PRN PRN Reason: Mild Constipation Enalaprilat (Vasotec Inj) 1.25 mg IV.PUSH Q6H PRN PRN Reason: HYPERTENSION Sodium Chloride (Ns Inj) 250 mls @ 15 mls/hr IV.SIG ONCE [facility] Stop: 02/12/18 04:39 Last Admin: 02/11/18 14:56 Dose: 15 mls/hr Sodium Chloride (Ns Inj) 1,000 mls @ 90 mls/hr IV.CONT .Q11H7M [facility] Last Admin: 02/11/18 16:35 Dose: 90 mls/hr Ceftriaxone Sodium 1,000 mg/ (Sodium Chloride) 100 mls @ 200 mls/hr IV.SIG Q24H MADDY Lactulose (Lactulose Liq) 30 ml PO DAILY PRN PRN Reason: SEVERE CONSITIPATION Ondansetron HCl (Zofran Inj) 4 mg IV.PUSH Q6H PRN PRN Reason: NAUSEA OR VOMITING Senna/Docusate Sodium (Marci-Colace) 1 tab PO BID [facility]ADD[facility] Sennosides (Senokot) 17.2 mg PO Q12H PRN PRN Reason: Moderate Constipation <Rhianna Zuniga - Last Filed: 02/11/18 19:29> Allergies Allergy/AdvReac Type Severity Reaction Status Date / Time buspirone AdvReac Intermediate Drowsiness Verified 02/11/18 12:10 codeine AdvReac Intermediate Gastrointestinal Verified 02/11/18 12:10 Upset duloxetine AdvReac Intermediate Confusion Verified 02/11/18 12:10 lorazepam AdvReac Intermediate Drowsiness Verified 02/11/18 12:10 pregabalin AdvReac Intermediate Gastrointestinal Verified 02/11/18 12:10 Upset Exam Vital signs: Vital Signs 02/11/18 09:27 02/11/18 09:38 02/11/18 13:38 Temperature 98.2 F Pulse Rate 78 78 74 Respiratory Rate 16 20 18 Blood Pressure 104/54 L 118/61 118/61 Pulse Oximetry 95 96 98 02/11/18 14:54 02/11/18 14:57 02/11/18 15:08 Temperature 98.1 F 97.8 F 97.9 F Pulse Rate 68 72 69 Respiratory Rate 17 18 18 Blood Pressure 130/60 130/60 158/69 H Pulse Oximetry 97 97 99 02/11/18 15:16 Temperature 98.0 F Pulse Rate 77 Respiratory Rate 20 Blood Pressure 136/60 Pulse Oximetry 99 Intake & Output 02/10/18 02/11/18 02/11/18 18:59 06:59 18:59 Intake Total 100 / 100 Balance 100 / 100 Weight 53.268 kg Intake: IV 100 / 100 Rocephin Inj 1,000 MG In NS Inj 100 / 100 100 ML @ 200 mls/hr IV.SIG ONCE ONE Rx#:[id number] Intake (Blood Product) Amt 0 / 0 Rbc As-3 Leukoreduced Unit 0 / 0 [id number] - Constitutional no acute distress - Routine HEENT Exam Head: Present: normocephalic, atraumatic - Routine Respiratory Exam Absent: accessory muscle use - Routine Abdominal Exam Present: soft, normoactive bowel sounds. Absent: tenderness, distended - Routine Skin Exam Present: dry, warm - Routine Neurological Exam Present: alert, oriented X3 <Nevin Pace - Last Filed: 02/11/18 16:05> Vital signs: Vital Signs 02/11/18 09:27 02/11/18 09:38 02/11/18 13:38 Temperature 98.2 F Pulse Rate 78 78 74 Respiratory Rate 16 20 18 Blood Pressure 104/54 L 118/61 118/61 Pulse Oximetry 95 96 98 02/11/18 14:54 02/11/18 14:57 02/11/18 15:08 Temperature 98.1 F 97.8 F 97.9 F Pulse Rate 68 72 69 Respiratory Rate 17 18 18 Blood Pressure 130/60 130/60 158/69 H Pulse Oximetry 97 97 99 02/11/18 15:16 02/11/18 16:00 02/11/18 16:53 Temperature 98.0 F 98.2 F 98.1 F Pulse Rate 77 60 78 Respiratory Rate 20 16 18 Blood Pressure 136/60 135/50 L 143/63 H Pulse Oximetry 99 98 98 02/11/18 17:19 Temperature Pulse Rate 72 Respiratory Rate 18 Blood Pressure 132/64 Pulse Oximetry Intake & Output 02/11/18 02/11/18 02/12/18 06:59 18:59 06:59 Intake Total 100 / 100 Balance 100 / 100 Weight 53.268 kg Intake: IV 100 / 100 Rocephin Inj 1,000 MG In NS Inj 100 / 100 100 ML @ 200 mls/hr IV.SIG ONCE ONE Rx#:[id number] Intake (Blood Product) Amt 0 / 0 Rbc As-3 Leukoreduced Unit 0 / 0 [id number] <Rhianna Zuniga - Last Filed: 02/11/18 19:29> Results - Labs CBC & Chem 7: 02/11/18 10:15 02/11/18 10:15 Labs: Laboratory Results - last 24 hr 02/11/18 02/11/18 02/11/18 10:15 10:15 10:15 WBC 4.9 RBC 3.20 L Hgb 6.2 L* Hct 20.7 L* MCV 64.8 L MCH 19.4 L MCHC 29.9 L RDW 19.7 H Plt Count 306 MPV 8.1 Prelim Diff (Auto) Not Reportable Neut % (Auto) 65.8 Lymph % (Auto) 18.8 Worth % (Auto) 12.5 H Eos % (Auto) 1.9 Baso % (Auto) 1.0 Neut # (Auto) 3.2 Lymph # (Auto) 0.9 L Worth # (Auto) 0.6 Eos # (Auto) 0.1 Baso # (Auto) 0.0 WBC Differential . Diff Scan Auto diff confirmed Differential Comment . Sodium 139 Potassium 3.7 Chloride 106 Carbon Dioxide 25.9 Anion Gap 7 BUN 20 H Creatinine 0.68 Estimated GFR 82 L Random Glucose 89 Calcium 8.2 L Total Bilirubin 0.4 AST 14 L ALT 14 Alkaline Phosphatase 75 Troponin I Total Protein 7.3 Albumin 3.5 Urine Color Urine Clarity Urine pH Ur Specific Pollock Urine Protein Urine Glucose (UA) Urine Ketones Urine Occult Blood Urine Nitrate Urine Bilirubin Urine Urobilinogen Ur Leukocyte Esterase Urine RBC Urine WBC Ur Squamous Epith Cells Urine Bacteria Urine Mucus Micro UA Comment Urine Culture Comments Blood Type O Positive Blood Type Recheck Required Antibody Screen Negative MTS Gel Crossmatch 02/11/18 02/11/18 02/11/18 10:15 11:10 11:58 WBC RBC Hgb Hct MCV MCH MCHC RDW Plt Count MPV Prelim Diff (Auto) Neut % (Auto) Lymph % (Auto) Worth % (Auto) Eos % (Auto) Baso % (Auto) Neut # (Auto) Lymph # (Auto) Worth # (Auto) Eos # (Auto) Baso # (Auto) WBC Differential Diff Scan Differential Comment Sodium Potassium Chloride Carbon Dioxide Anion Gap BUN Creatinine Estimated GFR Random Glucose Calcium Total Bilirubin AST ALT Alkaline Phosphatase Troponin I Less than 0.02 L Total Protein Albumin Urine Color Yellow Urine Clarity Clear Urine pH 7.0 Ur Specific Pollock 1.006 Urine Protein Negative Urine Glucose (UA) Negative Urine Ketones Negative Urine Occult Blood Small H Urine Nitrate Negative Urine Bilirubin Negative Urine Urobilinogen Less than 2 Ur Leukocyte Esterase Small H Urine RBC 1 Urine WBC 14 H Ur Squamous Epith Cells <1 Urine Bacteria Moderate H Urine Mucus Few H Micro UA Comment Culture indicated Urine Culture Comments Culture indicated Blood Type Blood Type Recheck Antibody Screen MTS Gel Crossmatch See Detail - Imaging Impressions Abdomen/Pelvis CT 02/11/18 10:24 CONCLUSION: 1. No acute findings within the abdomen and pelvis. Specifically no free fluid or evidence for retroperitoneal hemorrhage. 2. Nonacute findings include moderate hiatal hernia. Also mild fatty liver. Scoliosis with advanced degenerative disc disease. Previous left hip replacement. Chest X-Ray 02/11/18 10:24 CONCLUSION: Cardiomegaly with minimal basilar atelectasis or scarring. No pneumothorax. <Nevin Pace - Last Filed: 02/11/18 16:05> - Labs CBC & Chem 7: 02/11/18 10:15 02/11/18 10:15 Labs: Laboratory Results - last 24 hr 02/11/18 02/11/18 02/11/18 10:15 10:15 10:15 WBC 4.9 RBC 3.20 L Hgb 6.2 L* Hct 20.7 L* MCV 64.8 L MCH 19.4 L MCHC 29.9 L RDW 19.7 H Plt Count 306 MPV 8.1 Prelim Diff (Auto) Not Reportable Neut % (Auto) 65.8 Lymph % (Auto) 18.8 Worth % (Auto) 12.5 H Eos % (Auto) 1.9 Baso % (Auto) 1.0 Neut # (Auto) 3.2 Lymph # (Auto) 0.9 L Worth # (Auto) 0.6 Eos # (Auto) 0.1 Baso # (Auto) 0.0 WBC Differential . Diff Scan Auto diff confirmed Differential Comment . Sodium 139 Potassium 3.7 Chloride 106 Carbon Dioxide 25.9 Anion Gap 7 BUN 20 H Creatinine 0.68 Estimated GFR 82 L Random Glucose 89 Calcium 8.2 L Total Bilirubin 0.4 AST 14 L ALT 14 Alkaline Phosphatase 75 Troponin I Total Protein 7.3 Albumin 3.5 Urine Color Urine Clarity Urine pH Ur Specific Pollock Urine Protein Urine Glucose (UA) Urine Ketones Urine Occult Blood Urine Nitrate Urine Bilirubin Urine Urobilinogen Ur Leukocyte Esterase Urine RBC Urine WBC Ur Squamous Epith Cells Urine Bacteria Urine Mucus Micro UA Comment Urine Culture Comments Blood Type O Positive Blood Type Recheck Required Antibody Screen Negative MTS Gel Crossmatch 02/11/18 02/11/18 02/11/18 10:15 11:10 11:58 WBC RBC Hgb Hct MCV MCH MCHC RDW Plt Count MPV Prelim Diff (Auto) Neut % (Auto) Lymph % (Auto) Worth % (Auto) Eos % (Auto) Baso % (Auto) Neut # (Auto) Lymph # (Auto) Worth # (Auto) Eos # (Auto) Baso # (Auto) WBC Differential Diff Scan Differential Comment Sodium Potassium Chloride Carbon Dioxide Anion Gap BUN Creatinine Estimated GFR Random Glucose Calcium Total Bilirubin AST ALT Alkaline Phosphatase Troponin I Less than 0.02 L Total Protein Albumin Urine Color Yellow Urine Clarity Clear Urine pH 7.0 Ur Specific Pollock 1.006 Urine Protein Negative Urine Glucose (UA) Negative Urine Ketones Negative Urine Occult Blood Small H Urine Nitrate Negative Urine Bilirubin Negative Urine Urobilinogen Less than 2 Ur Leukocyte Esterase Small H Urine RBC 1 Urine WBC 14 H Ur Squamous Epith Cells <1 Urine Bacteria Moderate H Urine Mucus Few H Micro UA Comment Culture indicated Urine Culture Comments Culture indicated Blood Type Blood Type Recheck Antibody Screen MTS Gel Crossmatch See Detail - Imaging Impressions Abdomen/Pelvis CT 02/11/18 10:24 CONCLUSION: 1. No acute findings within the abdomen and pelvis. Specifically no free fluid or evidence for retroperitoneal hemorrhage. 2. Nonacute findings include moderate hiatal hernia. Also mild fatty liver. Scoliosis with advanced degenerative disc disease. Previous left hip replacement. Chest X-Ray 02/11/18 10:24 CONCLUSION: Cardiomegaly with minimal basilar atelectasis or scarring. No pneumothorax. <Rhianna Zuniga - Last Filed: 02/11/18 19:29> Assessment and Plan - Plan Assessment: - Anemic- microcytic, hypochromic with heme (+) stools Hgb was 10.5 in June, currently 6.2 Denies history of anemia, does not think she has ever had blood transfusion. Not on blood thinners. GI symptoms include chronic constipation, pt normally drinks prune juice daily but states has been off her routine lately Last BM was this morning, had a BM this morning after an hour of straining. Reports noticing some dark red blood mixed in her stool and thinks she has had prior episode of this. Denies nausea, vomiting, heartburn. She thinks she may have had EGD in the past. Has never had colonoscopy CT abdomen and pelvis W IV contrast --> No acute findings within the abdomen and pelvis. Specifically no free fluid or evidence for retroperitoneal hemorrhage. Nonacute findings include moderate hiatal hernia. Also mild fatty liver. Scoliosis with advanced degenerative disc disease. Previous left hip replacement. Plan: EGD and colonoscopy tomorrow Obtain consent Clear liquids today Mag Citrate prep NPO after MN SSE x 2 in AM Monitor H/H PT/INR Further recommendations to follow Pt has been seen and examined by myself and Dr. Zuniga and this note is written on her behalf <Nevin Pace - Last Filed: 02/11/18 16:05> - Attending Attestation seen, examined agree with above <Rhianna Zuniga - Last Filed: 02/11/18 19:29>
[2018-02-11] MEDS: Sod Chloride 0.9% Inj 1,000 ML IV.CONT SCH (16:35)
[2018-02-11] MEDS ORDERED: Magnesium Citrate Liq 300 ML Bottle PO ONE ×2 (17:00→18:30)
[2018-02-11 20:57] LABS: Hematocrit 26.8 % (35.0-46.0); Hemoglobin 8.2 gm/dL (11.6-15.3)
[2018-02-11] MEDS: Senna/Docusate Sodium 8.6/50 MG Tablet PO SCH (23:33)
[2018-02-12 02:20] LABS: Baso % (Auto) 0.6 % (0.0-2.0); Eos % (Auto) 0.6 % (0.0-4.0); Hematocrit 26.6 % (35.0-46.0); Hemoglobin 8.3 gm/dL (11.6-15.3); Lymph # (Auto) 1.1 th/mm3 (1.0-4.8); Lymph % (Auto) 14.1 % (9.0-44.0); Mean Corpuscular HGB Conc 31.3 % (32.0-36.0); Mean Corpuscular Hemoglobin 20.9 pg (27.0-34.0); Mean Corpuscular Volume 66.8 fL (80.0-100.0); Mean Platelet Volume 8.1 fL (7.0-11.0); Mono # (Auto) 0.9 th/mm3 (0.0-0.9); Mono % (Auto) 11.3 % (0.0-8.0); Neut # (Auto) 5.7 th/mm3 (1.8-7.7); Neut % (Auto) 73.4 % (16.0-70.0); Platelet Count 293 th/mm3 (150-450); Red Blood Count 3.99 mil/mm3 (4.00-5.30); Red Cell Distribution Width 19.4 % (11.6-17.2); White Blood Count 7.7 th/mm3 (4.0-11.0)
[2018-02-12 02:25] LABS: Alanine Aminotransferase 13 U/L (10-53); Albumin 3.5 g/dL (3.4-5.0); Anion Gap 10 meq/L (5-15); Aspartate Aminotransferase 12 U/L (15-37); Blood Urea Nitrogen 17 mg/dL (7-18); Calcium 8.3 mg/dL (8.5-10.1); Carbon Dioxide 23.4 meq/L (21.0-32.0); Chloride 108 meq/L (98-107); Glomerular Filtration Rate Greater Than 89 mL/min (>89); Glucose,Random 93 mg/dL (74-106); Potassium 3.5 meq/L (3.5-5.1); Sodium 141 meq/L (136-145)
[2018-02-12 02:27] LABS: Alkaline Phosphatase 77 U/L (45-117); Total Protein 7.7 g/dL (6.4-8.2)
[2018-02-12 02:31] LABS: Prothrombin Time 10.4 sec (9.8-11.6)
[2018-02-12 08:40] LABS: Hematocrit 25.1 % (35.0-46.0); Hemoglobin 7.8 gm/dL (11.6-15.3)
[2018-02-12] MEDS: Senna/Docusate Sodium 8.6/50 MG Tablet PO SCH ×2 (09:40→21:21)
[2018-02-12] MEDS: Sod Chloride 0.9% Inj 1,000 ML IV.CONT SCH (09:41)
--- NOTE | 2018-02-12 10:56 | P.PNFP ---
Subjective Interval history: Patient seen and examined this morning. No acute events overnight. Patient received 1 unit of packed red blood cells overnight. Hemoglobin up to 8.3, now down to 7.8. Patient understands she is going for EGD this morning. Endorses some heartburn. Denies any shortness of breath, abdominal pain, leg pain. <Fabricio Bland - 02/12/18 10:55> Results - Labs Result diagrams: 02/12/18 08:29 02/12/18 01:42 <Oscar Rai - 02/12/18 15:00> Abnormal lab results 02/11/18 02/11/18 02/11/18 Range/Units 10:15 11:10 11:58 RBC (4.00-5.30) mil/mm3 Hgb (11.6-15.3) gm/dL Hct (35.0-46.0) % MCV (80.0-100.0) fL MCH (27.0-34.0) pg MCHC (32.0-36.0) % RDW (11.6-17.2) % Neut % (Auto) (16.0-70.0) % [place] % (Auto) (0.0-8.0) % Chloride (98-107) meq/L Calcium (8.5-10.1) mg/dL AST (15-37) U/L Troponin I Less than 0.02 L (0.02-0.05) ng/mL B-Natriuretic Peptide (0-100) pg/mL Urine Occult Blood Small H (Negative) Ur Leukocyte Esterase Small H (Negative) Urine WBC 14 H (0-5) /hpf Urine Bacteria Moderate H (None) /hpf Urine Mucus Few H (Occasional) /lpf MTS Gel Crossmatch See Detail 02/11/18 02/12/18 02/12/18 Range/Units 20:15 01:42 01:42 RBC 3.99 L (4.00-5.30) mil/mm3 Hgb 8.2 L D 8.3 L (11.6-15.3) gm/dL Hct 26.8 L 26.6 L (35.0-46.0) % MCV 66.8 L (80.0-100.0) fL MCH 20.9 L (27.0-34.0) pg MCHC 31.3 L (32.0-36.0) % RDW 19.4 H (11.6-17.2) % Neut % (Auto) 73.4 H (16.0-70.0) % [place] % (Auto) 11.3 H (0.0-8.0) % Chloride 108 H (98-107) meq/L Calcium 8.3 L (8.5-10.1) mg/dL AST 12 L (15-37) U/L Troponin I (0.02-0.05) ng/mL B-Natriuretic Peptide (0-100) pg/mL Urine Occult Blood (Negative) Ur Leukocyte Esterase (Negative) Urine WBC (0-5) /hpf Urine Bacteria (None) /hpf Urine Mucus (Occasional) /lpf MTS Gel Crossmatch 02/12/18 02/12/18 Range/Units 01:42 08:29 RBC (4.00-5.30) mil/mm3 Hgb 7.8 L (11.6-15.3) gm/dL Hct 25.1 L (35.0-46.0) % MCV (80.0-100.0) fL MCH (27.0-34.0) pg MCHC (32.0-36.0) % RDW (11.6-17.2) % Neut % (Auto) (16.0-70.0) % [place] % (Auto) (0.0-8.0) % Chloride (98-107) meq/L Calcium (8.5-10.1) mg/dL AST (15-37) U/L Troponin I (0.02-0.05) ng/mL B-Natriuretic Peptide 591 H (0-100) pg/mL Urine Occult Blood (Negative) Ur Leukocyte Esterase (Negative) Urine WBC (0-5) /hpf Urine Bacteria (None) /hpf Urine Mucus (Occasional) /lpf MTS Gel Crossmatch Short CBC 02/11/18 02/12/18 02/12/18 Range/Units 20:15 01:42 08:29 WBC 7.7 D (4.0-11.0) th/mm3 Hgb 8.2 L D 8.3 L 7.8 L (11.6-15.3) gm/dL Hct 26.8 L 26.6 L 25.1 L (35.0-46.0) % Plt Count 293 (150-450) th/mm3 BMP 02/12/18 01:42 Sodium 141 Potassium 3.5 Chloride 108 H Carbon Dioxide 23.4 BUN 17 Creatinine 0.62 Calcium 8.3 L Cardiac Enzymes 02/11/18 Range/Units 10:15 Troponin I Less than 0.02 L (0.02-0.05) ng/mL Liver Function 02/12/18 Range/Units 01:42 Total Bilirubin 0.6 (0.2-1.0) mg/dL AST 12 L (15-37) U/L ALT 13 (10-53) U/L Alkaline Phosphatase 77 (45-117) U/L Albumin 3.5 (3.4-5.0) g/dL Urine 02/11/18 Range/Units 11:10 Urine Color Yellow (Yellw/Straw) Urine Clarity Clear (Clear) Urine pH 7.0 (5.0-8.5) Ur Specific [place] 1.006 (1.002-1.035) Urine Protein Negative (Neg-Trace) mg/dL Urine Glucose (UA) Negative (Negative) mg/dL <CeceliaOscar - 02/12/18 15:00> Abnormal lab results 02/11/18 02/11/18 02/11/18 Range/Units 10:15 10:15 10:15 RBC 3.20 L (4.00-5.30) mil/mm3 Hgb 6.2 L* (11.6-15.3) gm/dL Hct 20.7 L* (35.0-46.0) % MCV 64.8 L (80.0-100.0) fL MCH 19.4 L (27.0-34.0) pg MCHC 29.9 L (32.0-36.0) % RDW 19.7 H (11.6-17.2) % Neut % (Auto) (16.0-70.0) % [place] % (Auto) 12.5 H (0.0-8.0) % Lymph # (Auto) 0.9 L (1.0-4.8) th/mm3 Chloride (98-107) meq/L BUN 20 H (7-18) mg/dL Estimated GFR 82 L (>89) mL/min Calcium 8.2 L (8.5-10.1) mg/dL AST 14 L (15-37) U/L Troponin I Less than 0.02 L (0.02-0.05) ng/mL B-Natriuretic Peptide (0-100) pg/mL Urine Occult Blood (Negative) Ur Leukocyte Esterase (Negative) Urine WBC (0-5) /hpf Urine Bacteria (None) /hpf Urine Mucus (Occasional) /lpf MTS Gel Crossmatch 02/11/18 02/11/18 02/11/18 Range/Units 11:10 11:58 20:15 RBC (4.00-5.30) mil/mm3 Hgb 8.2 L D (11.6-15.3) gm/dL Hct 26.8 L (35.0-46.0) % MCV (80.0-100.0) fL MCH (27.0-34.0) pg MCHC (32.0-36.0) % RDW (11.6-17.2) % Neut % (Auto) (16.0-70.0) % [place] % (Auto) (0.0-8.0) % Lymph # (Auto) (1.0-4.8) th/mm3 Chloride (98-107) meq/L BUN (7-18) mg/dL Estimated GFR (>89) mL/min Calcium (8.5-10.1) mg/dL AST (15-37) U/L Troponin I (0.02-0.05) ng/mL B-Natriuretic Peptide (0-100) pg/mL Urine Occult Blood Small H (Negative) Ur Leukocyte Esterase Small H (Negative) Urine WBC 14 H (0-5) /hpf Urine Bacteria Moderate H (None) /hpf Urine Mucus Few H (Occasional) /lpf MTS Gel Crossmatch See Detail 02/12/18 02/12/18 02/12/18 Range/Units 01:42 01:42 01:42 RBC 3.99 L (4.00-5.30) mil/mm3 Hgb 8.3 L (11.6-15.3) gm/dL Hct 26.6 L (35.0-46.0) % MCV 66.8 L (80.0-100.0) fL MCH 20.9 L (27.0-34.0) pg MCHC 31.3 L (32.0-36.0) % RDW 19.4 H (11.6-17.2) % Neut % (Auto) 73.4 H (16.0-70.0) % [place] % (Auto) 11.3 H (0.0-8.0) % Lymph # (Auto) (1.0-4.8) th/mm3 Chloride 108 H (98-107) meq/L BUN (7-18) mg/dL Estimated GFR (>89) mL/min Calcium 8.3 L (8.5-10.1) mg/dL AST 12 L (15-37) U/L Troponin I (0.02-0.05) ng/mL B-Natriuretic Peptide 591 H (0-100) pg/mL Urine Occult Blood (Negative) Ur Leukocyte Esterase (Negative) Urine WBC (0-5) /hpf Urine Bacteria (None) /hpf Urine Mucus (Occasional) /lpf MTS Gel Crossmatch 02/12/18 Range/Units 08:29 RBC (4.00-5.30) mil/mm3 Hgb 7.8 L (11.6-15.3) gm/dL Hct 25.1 L (35.0-46.0) % MCV (80.0-100.0) fL MCH (27.0-34.0) pg MCHC (32.0-36.0) % RDW (11.6-17.2) % Neut % (Auto) (16.0-70.0) % [place] % (Auto) (0.0-8.0) % Lymph # (Auto) (1.0-4.8) th/mm3 Chloride (98-107) meq/L BUN (7-18) mg/dL Estimated GFR (>89) mL/min Calcium (8.5-10.1) mg/dL AST (15-37) U/L Troponin I (0.02-0.05) ng/mL B-Natriuretic Peptide (0-100) pg/mL Urine Occult Blood (Negative) Ur Leukocyte Esterase (Negative) Urine WBC (0-5) /hpf Urine Bacteria (None) /hpf Urine Mucus (Occasional) /lpf MTS Gel Crossmatch Short CBC 02/11/18 02/11/18 02/12/18 Range/Units 10:15 20:15 01:42 WBC 4.9 7.7 D (4.0-11.0) th/mm3 Hgb 6.2 L* 8.2 L D 8.3 L (11.6-15.3) gm/dL Hct 20.7 L* 26.8 L 26.6 L (35.0-46.0) % Plt Count 306 293 (150-450) th/mm3 02/12/18 Range/Units 08:29 WBC (4.0-11.0) th/mm3 Hgb 7.8 L (11.6-15.3) gm/dL Hct 25.1 L (35.0-46.0) % Plt Count (150-450) th/mm3 BMP 02/11/18 02/12/18 10:15 01:42 Sodium 139 141 Potassium 3.7 3.5 Chloride 106 108 H Carbon Dioxide 25.9 23.4 BUN 20 H 17 Creatinine 0.68 0.62 Calcium 8.2 L 8.3 L Cardiac Enzymes 02/11/18 Range/Units 10:15 Troponin I Less than 0.02 L (0.02-0.05) ng/mL Liver Function 02/11/18 02/12/18 Range/Units 10:15 01:42 Total Bilirubin 0.4 0.6 (0.2-1.0) mg/dL AST 14 L 12 L (15-37) U/L ALT 14 13 (10-53) U/L Alkaline Phosphatase 75 77 (45-117) U/L Albumin 3.5 3.5 (3.4-5.0) g/dL Urine 02/11/18 Range/Units 11:10 Urine Color Yellow (Yellw/Straw) Urine Clarity Clear (Clear) Urine pH 7.0 (5.0-8.5) Ur Specific [place] 1.006 (1.002-1.035) Urine Protein Negative (Neg-Trace) mg/dL Urine Glucose (UA) Negative (Negative) mg/dL <Fabricio Bland - 02/12/18 10:55> - Imaging Impressions Abdomen/Pelvis CT 02/11/18 10:24 CONCLUSION: 1. No acute findings within the abdomen and pelvis. Specifically no free fluid or evidence for retroperitoneal hemorrhage. 2. Nonacute findings include moderate hiatal hernia. Also mild fatty liver. Scoliosis with advanced degenerative disc disease. Previous left hip replacement. Chest X-Ray 02/11/18 10:24 CONCLUSION: Cardiomegaly with minimal basilar atelectasis or scarring. No pneumothorax. <GretchenFabricio ramirez - 02/12/18 10:55> Physical Exam Vital signs: Vital Signs 02/11/18 15:08 02/11/18 15:16 02/11/18 16:00 Temperature 97.9 F 98.0 F 98.2 F Pulse Rate 69 77 60 Respiratory Rate 18 20 16 Blood Pressure 158/69 H 136/60 135/50 L Pulse Oximetry 99 99 98 02/11/18 16:53 02/11/18 17:19 02/11/18 20:00 Temperature 98.1 F 98.0 F Pulse Rate 78 72 80 Respiratory Rate 18 18 18 Blood Pressure 143/63 H 132/64 181/78 H Pulse Oximetry 98 98 02/12/18 00:00 02/12/18 04:00 02/12/18 08:00 Temperature 98.6 F 98.7 F 97.9 F Pulse Rate 73 81 69 Respiratory Rate 18 18 16 Blood Pressure 124/64 102/63 148/61 H Pulse Oximetry 98 93 L 99 Intake & Output 02/11/18 02/12/18 02/12/18 18:59 06:59 18:59 Intake Total 100 / 100 1592 / 1592 Balance 100 / 100 1592 / 1592 Weight 53.268 kg 53.3 kg Intake: IV 100 / 100 1000 / 1000 NS Inj 1,000 ML @ 90 mls/hr IV. 1000 / 1000 CONT .Q11H7M [facility] Rx#:[id number] Rocephin Inj 1,000 MG In NS Inj 100 / 100 100 ML @ 200 mls/hr IV.SIG ONCE ONE Rx#:[id number] Oral 592 / 592 Intake (Blood Product) Amt 0 / 0 Rbc As-3 Leukoreduced Unit 0 / 0 [id number] Other: # Voids 2 Date of Last Bowel Movement 02/11/18 02/12/18 # Bowel Movements 5 <Oscar Rai - 02/12/18 15:00> Vital Signs 02/11/18 13:38 02/11/18 14:54 02/11/18 14:57 Temperature 98.1 F 97.8 F Pulse Rate 74 68 72 Respiratory Rate 18 17 18 Blood Pressure 118/61 130/60 130/60 Pulse Oximetry 98 97 97 02/11/18 15:08 02/11/18 15:16 02/11/18 16:00 Temperature 97.9 F 98.0 F 98.2 F Pulse Rate 69 77 60 Respiratory Rate 18 20 16 Blood Pressure 158/69 H 136/60 135/50 L Pulse Oximetry 99 99 98 02/11/18 16:53 02/11/18 17:19 02/11/18 20:00 Temperature 98.1 F 98.0 F Pulse Rate 78 72 80 Respiratory Rate 18 18 18 Blood Pressure 143/63 H 132/64 181/78 H Pulse Oximetry 98 98 02/12/18 00:00 02/12/18 04:00 02/12/18 08:00 Temperature 98.6 F 98.7 F 97.9 F Pulse Rate 73 81 69 Respiratory Rate 18 18 16 Blood Pressure 124/64 102/63 148/61 H Pulse Oximetry 98 93 L 99 Intake & Output 02/11/18 02/12/18 02/12/18 18:59 06:59 18:59 Intake Total 100 / 100 1592 / 1592 Balance 100 / 100 1592 / 1592 Weight 53.268 kg 53.3 kg Intake: IV 100 / 100 1000 / 1000 NS Inj 1,000 ML @ 90 mls/hr IV. 1000 / 1000 CONT .Q11H7M [facility] Rx#:[id number] Rocephin Inj 1,000 MG In NS Inj 100 / 100 100 ML @ 200 mls/hr IV.SIG ONCE ONE Rx#:[id number] Oral 592 / 592 Intake (Blood Product) Amt 0 / 0 Rbc As-3 Leukoreduced Unit 0 / 0 [id number] Other: # Voids 2 Date of Last Bowel Movement 02/11/18 # Bowel Movements 5 <GretchenFabricio ramirez - 02/12/18 10:55> Narrative: GENERAL: lying in bed, NAD SKIN: Warm and dry. CARDIOVASCULAR: Regular rate and rhythm. RESPIRATORY: No accessory muscle use. Clear to auscultation. Breath sounds equal bilaterally. GASTROINTESTINAL: Abdomen soft, non-tender, nondistended. Hepatic and splenic margins not palpable. MUSCULOSKELETAL: Extremities without clubbing, cyanosis, or edema. No obvious deformities. NEUROLOGICAL: Awake and alert. No obvious cranial nerve deficits. Normal speech. PSYCHIATRIC: Appropriate mood and affect; insight and judgment normal. <Fabricio Bland Jun - 02/12/18 10:55> Assessment and Plan - Assessment (1) Anemia requiring transfusions Code(s): D64.9 - Anemia, unspecified Status: Acute (2) Guaiac positive stools Code(s): R19.5 - Other fecal abnormalities Status: Acute (3) Acute UTI Code(s): N39.0 - Urinary tract infection, site not specified Status: Acute (4) Cardiomegaly Code(s): I51.7 - Cardiomegaly Status: Acute (5) Dementia Code(s): F03.90 - Unspecified dementia without behavioral disturbance Status: Acute (6) Fibromyalgia Code(s): M79.7 - Fibromyalgia Status: Acute (7) Hypertension Code(s): I10 - Essential (primary) hypertension Status: Acute (8) Nutrition, metabolism, and development symptoms Code(s): R63.8 - Other symptoms and signs concerning food and fluid intake Status: Acute <Oscar Rai - 02/12/18 15:00> (1) Anemia requiring transfusions Code(s): D64.9 - Anemia, unspecified Status: Acute Plan: Hgb was 10.5 in June, 6.2 on admission, guaiac positive Difficult historian, but possibly increased fatigue recently Transfused 1 unit PRBCs with transfusion goal over 7.0 Follow-up with GI for elderly woman, acute anemia, positive guaiac -Scheduling for EGD/colonoscopy today -NPO -Follow-up serial H&H (2) Guaiac positive stools Code(s): R19.5 - Other fecal abnormalities Status: Acute Plan: See plans of GI recommendation above (3) Acute UTI Code(s): N39.0 - Urinary tract infection, site not specified Status: Acute Plan: UA: Small leukocyte esterase, associated with urinary symptoms Follow-up urine culture Status post Rocephin 1 g Continue Rocephin 1g q24h until can tolerate PO (4) Cardiomegaly Code(s): I51.7 - Cardiomegaly Status: Acute Plan: Cardiomegaly seen on chest x-ray, 4 out of 6 systolic murmur on exam, unknown past medical history Possible history of heart disease or CHF? EKG normal BNP 591 Careful with fluid intake (5) Dementia Code(s): F03.90 - Unspecified dementia without behavioral disturbance Status: Acute Plan: Likely dementia based on encounter Follow-up with family (6) Fibromyalgia Code(s): M79.7 - Fibromyalgia Status: Acute Plan: Chronic pain, patient sees a specialist for this Does not know home meds (7) Hypertension Code(s): I10 - Essential (primary) hypertension Status: Acute Plan: History of hypertension per patient, however patient does not know home meds BP WNL Add vasotec PRN (8) Nutrition, metabolism, and development symptoms Code(s): R63.8 - Other symptoms and signs concerning food and fluid intake Status: Acute Plan: Fluids: NS @ 90mls/hr Electrolytes: BMP normal, follow-up and replete as needed Nutrition: See above DVT prophylaxis: SCDs only, concern for GI bleed <Fabricio Bland - 02/12/18 10:48> - Attending Attestation The exam, history, and the medical decision-making described in the above note were completed with the assistance of the resident physician. I reviewed and agree with the findings presented. I attest that I had a dcbi-vy-ikin encounter with the patient on the same day, and personally performed and documented my assessment and findings in the medical record.Shane BEVERLY <Oscar Rai - 02/12/18 15:00>
[2018-02-12] MEDS ORDERED: Pantoprazole Inj 40 MG Vial IV.PUSH SCH (11:00)
[2018-02-12] MEDS ORDERED: Lidocaine PF 1% Inj 5 ML Syringe INFILTRATN ONE (12:00)
[2018-02-12] MEDS ORDERED: Phenylephrine/NS 1000 MCG/10ML Syringe IV.PUSH ONE (12:00)
[2018-02-12] MEDS ORDERED: Metoprolol Tartrate 25 MG Tablet PO SCH (13:45)
[2018-02-12] MEDS ORDERED: Chlorhexidine Gluconate 2% 1 Pack (2 Cloths) TOPICAL SCH (13:45)
[2018-02-12] MEDS ORDERED: Sodium Chlor 0.9% Inj 500 ML IV.SIG SCH (14:00)
--- NOTE | 2018-02-12 14:48 | GIPROC ---
[facility] [address] [facility], [address] COLONOSCOPY PROCEDURE REPORT EXAM DATE: 02/12/2018 PATIENT NAME: Suzanne Nunez MR #: [id number] BIRTHDATE: 1930 ENDOSCOPIST: Rhianna Zuniga MD ORDER #: [id number] NURSE DISCHARGE: STATUS: inpatient INDICATIONS: The patient is a 87 yr old female here for a colonoscopy due to anemia , gi bleeding PROCEDURE PERFORMED: Colonoscopy with polypectomy MEDICATIONS: None and Per Anesthesia. PREP QUALITY: fair PREP TYPE:Other: ESTIMATED BLOOD LOSS: None CONSENT: The patient understands the risks and benefits of the procedure and understands that these risks include, but are not limited to: sedation, allergic reaction, infection, perforation and/or bleeding. Alternative means of evaluation and treatment include, among others: physical exam, x-rays, and/or surgical intervention. The patient elects to proceed with this endoscopic procedure. medical equipment was checked for proper function. Hand hygiene and appropriate measures for infection prevention was taken. After the risks, benefits and alternatives of the procedure were thoroughly explained, Informed consent was verified, confirmed and timeout was successfully executed by the treatment team. A digital exam revealed external hemorrhoids The endoscope was introduced through the anus and advanced to the cecum, which was identified by both the appendix and ileocecal valve. The instrument was then slowly withdrawn as the colon was fully examined. COLON FINDINGS: Diverticulosis sigmoid,descending colon polyp sessile sigmoid, sessile-7 mm-hot snare polypectomy with complete removal tortous colon semisolid stool throughout colon some stool in cecum patient vomitied, due to advance age withdrawal time was short. Retroflexed views revealed internal hemorrhoids and Retroflexed views revealed medium internal hemorrhoids The scope was then completely withdrawn from the patient and the procedure terminated. ADVERSE EVENTS: There were no complications. IMPRESSIONS: 1. Diverticulosis sigmoid,descending colon polyp sessile sigmoid, sessile-7 mm-hot snare polypectomy with complete removal tortous colon semisolid stool throughout colon some stool in cecum patient vomitied, due to advance age withdrawal time was short 2. Retroflexed views revealed internal hemorrhoids 3. Retroflexed views revealed medium internal hemorrhoids 4. Revealed external hemorrhoids RECOMMENDATIONS: 1. Await biopsy results. Biopsy results will not be ready for 7-10 days. If you don't hear from us in two weeks, call our office for results. 2. Benefiber 2 tsp daily 3. Continue surveillance 4. Probiotics from any [facility] or [employer] food store 5. Yearly rectal exams 6. Chest x-ray RECALL: Return 3 years Colonoscopy Rhianna Zuniga MD eSigned: Rhianna Zuniga MD 02/12/2018 2:47 PM cc: PATIENT NAME: Suzanne Nunez MR#: [id number]
--- NOTE | 2018-02-12 14:53 | GIPROC ---
[facility] [address] [facility]. 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 TOPICAL ANESTHETIC: none CONSENT: The patient understands the risks and benefits of the procedure and understands that these risks include, but are not limited to: sedation, allergic reaction, infection, perforation and/or bleeding. Alternative means of evaluation and treatment include, among others: physical exam, x-rays, and/or surgical intervention. The patient elects to proceed with this endoscopic procedure. medical equipment was checked for proper function. Hand hygiene and appropriate measures for infection prevention was taken. After the risks, benefits and alternatives of the procedure were thoroughly explained, Informed consent was verified, confirmed and timeout was successfully executed by the treatment team. The patient was anesthetized with topical anesthesia and the endoscope was introduced through the mouth and advanced to the second portion of the duodenum. Retroflexed views revealed a hiatal hernia The gastroscope was then slowly withdrawn and removed. Zenker's diverticulum upper esophagus, difficult intubation of upper esophageal sphyncter severe esophagitis distal esophagus-friable mucosa -biopsy gastritis antrum-biopsy. ADVERSE EVENTS: There were no complications. IMPRESSIONS: 1. Zenker's diverticulum upper esophagus, difficult intubation of upper esophageal sphyncter severe esophagitis distal esophagus-friable mucosa -biopsy gastritis antrum-biopsy 2. Retroflexed views revealed a hiatal hernia RECOMMENDATIONS: 1. Anti-reflux regimen 2. Continue PPI 3. Await biopsy results. Biopsy results will not be ready for 7-10 days. If you don't hear from us in two weeks, call our office for biopsy results. 4. Soft diet ppi-bid carafate liquid PATIENT CONDITION: stable DISPOSITION: Inpatient REPEAT EXAM: Return 6 weeks EGD Rhianna Zuniga MD eSigned: Rhianna Zuniga MD 02/12/2018 2:53 PM cc: PATIENT NAME: Suzanne Nunez MR#: [id number]
--- NOTE | 2018-02-12 17:07 | XR ---
EXAM DATE: 02/12/2018 5:00 PM EDT AGE/SEX: 87 years / Female INDICATIONS: . Shortness of breath and cough. CLINICAL DATA: This is the patient's subsequent encounter. Patient reports that signs and symptoms h ave been present for 1 day and indicates a pain score of 1/10. MEDICAL/SURGICAL HISTORY: . Gastroesophageal reflux disease. Hypertension. Fibromyalgia None. COMPARISON: [facility] [place], CHEST 1V SINGLE AP, 02/11/2018. . FINDINGS: AP and lateral views of the chest were obtained and demonstrate hyperinflation of both lungs there ar e no confluent infiltrates or effusions. The heart size is mildly prominent with no perihilar edema. The patient is rotated to the left. There is diffuse osteopenia. There is a moderate scoliosis of the thoracic spine. Atherosclerotic changes are present in the aorta. CONCLUSION: 1. The lungs are hyperinflated with no evidence of pneumonia. 2. Cardiomegaly with no definite pulmonary edema. Electronically signed by: Ronal Lynch MD 02/12/2018 5:05 PM EDT
[2018-02-12] MEDS: Pantoprazole Inj 40 MG Vial IV.PUSH SCH ×2 (17:26→23:14)
[2018-02-12 20:31] LABS: Hematocrit 24.9 % (35.0-46.0); Hemoglobin 7.6 gm/dL (11.6-15.3)
[2018-02-12] MEDS: Sucralfate Liq 1 GM/10 ML UDC PO SCH (21:21)
--- NOTE | 2018-02-12 22:46 | ECG ---
Date Performed: 02/11/2018 Time Performed: 11:24:08 PTAGE: 87 years EKG: Sinus rhythm WITH MARKED SINUS ARRHYTHMIA LEFT VENTRICULAR HYPERTROPHY AND ST-T CHANGE POSSIBLE SEPTAL MYOCARDIAL INFARCTION ABNORMAL ECG PREVIOUS TRACING : 06/17/2017 07.59 Since the previous tracing, no significant change noted DOCTOR: Dat Baldwin Interpretating Date/Time 02/12/2018 22:45:01
[2018-02-13 09:40] LABS: Baso % (Auto) 0.5 % (0.0-2.0); Eos # (Auto) 0.2 th/mm3 (0.0-0.4); Eos % (Auto) 3.5 % (0.0-4.0); Hematocrit 23.8 % (35.0-46.0); Hemoglobin 7.4 gm/dL (11.6-15.3); Lymph # (Auto) 1.2 th/mm3 (1.0-4.8); Lymph % (Auto) 19.2 % (9.0-44.0); Mean Corpuscular HGB Conc 31.3 % (32.0-36.0); Mean Corpuscular Hemoglobin 21.1 pg (27.0-34.0); Mean Corpuscular Volume 67.4 fL (80.0-100.0); Mean Platelet Volume 7.9 fL (7.0-11.0); Mono # (Auto) 0.9 th/mm3 (0.0-0.9); Mono % (Auto) 14.1 % (0.0-8.0); Neut # (Auto) 3.9 th/mm3 (1.8-7.7); Neut % (Auto) 62.7 % (16.0-70.0); Platelet Count 264 th/mm3 (150-450); Red Blood Count 3.53 mil/mm3 (4.00-5.30); Red Cell Distribution Width 19.9 % (11.6-17.2); White Blood Count 6.2 th/mm3 (4.0-11.0)
--- NOTE | 2018-02-13 09:54 | P.PNFP ---
Subjective Interval history: Patient seen and examined at bedside this morning. No acute events overnight. No complications from her EGD yesterday. Her EGD showed Zenker's diverticulum, gastritis, and hiatal hernia. Her colonoscopy showed diverticulosis in the sigmoid, descending colon and internal hemorrhoids. She states that she is feeling a lot better today, her epigastric/heartburn pain has now resolved. She denies any fevers, night chest pain, shortness of breath, abdominal pain, leg pain. Results - Labs Result diagrams: 02/13/18 09:00 02/13/18 09:00 Abnormal lab results 02/11/18 02/12/18 02/13/18 Range/Units 11:10 19:37 09:00 RBC 3.53 L (4.00-5.30) mil/mm3 Hgb 7.6 L 7.4 L (11.6-15.3) gm/dL Hct 24.9 L 23.8 L (35.0-46.0) % MCV 67.4 L (80.0-100.0) fL MCH 21.1 L (27.0-34.0) pg MCHC 31.3 L (32.0-36.0) % RDW 19.9 H (11.6-17.2) % [place] % (Auto) 14.1 H (0.0-8.0) % Urine Occult Blood Small H (Negative) Ur Leukocyte Esterase Small H (Negative) Urine WBC 14 H (0-5) /hpf Urine Bacteria Moderate H (None) /hpf Urine Mucus Few H (Occasional) /lpf Short CBC 02/12/18 02/13/18 Range/Units 19:37 09:00 WBC 6.2 (4.0-11.0) th/mm3 Hgb 7.6 L 7.4 L (11.6-15.3) gm/dL Hct 24.9 L 23.8 L (35.0-46.0) % Plt Count 264 (150-450) th/mm3 Urine 02/11/18 Range/Units 11:10 Urine Color Yellow (Yellw/Straw) Urine Clarity Clear (Clear) Urine pH 7.0 (5.0-8.5) Ur Specific [place] 1.006 (1.002-1.035) Urine Protein Negative (Neg-Trace) mg/dL Urine Glucose (UA) Negative (Negative) mg/dL - Imaging Impressions Chest X-Ray 02/12/18 00:00 CONCLUSION: 1. The lungs are hyperinflated with no evidence of pneumonia. 2. Cardiomegaly with no definite pulmonary edema. Physical Exam Vital signs: Vital Signs 02/12/18 12:45 02/12/18 14:21 02/12/18 14:30 Temperature 98.2 F Pulse Rate 62 66 74 Respiratory Rate 20 20 Blood Pressure 122/56 L 104/57 L Pulse Oximetry 99 97 02/12/18 14:45 02/12/18 15:00 02/12/18 15:15 Temperature 97.6 F Pulse Rate 76 69 61 Respiratory Rate 18 19 15 Blood Pressure 100/58 L 115/53 L 115/54 L Pulse Oximetry 93 L 94 L 94 L 02/12/18 16:00 02/12/18 20:00 02/13/18 00:00 Temperature Pulse Rate 66 96 H 91 H Respiratory Rate Blood Pressure Pulse Oximetry 02/13/18 04:00 Temperature Pulse Rate 83 Respiratory Rate Blood Pressure Pulse Oximetry Intake & Output 02/12/18 02/13/18 02/13/18 18:59 06:59 18:59 Intake Total 300 / 300 Balance 300 / 300 Weight 53.8 kg Intake: Anesthesia Amount 300 / 300 Other: Date of Last Bowel Movement 02/12/18 02/12/18 - Constitutional no acute distress - Routine HEENT Exam Head: Present: normocephalic, atraumatic - Routine Respiratory Exam Present: CTA bilaterally - Routine Cardiovascular Exam Present: RRR, S1, S2, murmur Comments: Grade 4 out of 5 systolic murmur appreciated. - Routine Abdominal Exam Present: soft, normoactive bowel sounds. Absent: tenderness, distended - Routine Neurological Exam Present: alert, oriented X3 Assessment and Plan - Assessment (1) Anemia requiring transfusions Code(s): D64.9 - Anemia, unspecified Status: Acute Plan: Hemoglobin slightly decreased from 7.6 to 7.4 this morning status post EGD yesterday. Possibly due to procedure, will continue to monitor noon hemoglobin. We will transfuse 1 unit if under 7. Patient currently asymptomatic. Hgb was 10.5 in June, 6.2 on admission, guaiac positive Difficult historian, but possibly increased fatigue recently Transfused 1 unit PRBCs in the ED with hemoglobin rise to 8.2. (2) Gastritis Code(s): K29.70 - Gastritis, unspecified, without bleeding Status: Acute Plan: Confirmed by EGD yesterday: Zenkers diverticulum in upper esophagus, severe esophagitis distal esophagus, hiatal hernia. GI recommendations: Antireflux regimen Continue PPI twice daily: Protonix 40 mg IV twice daily Soft diet Carafate liquid BID (3) Diverticulosis Code(s): K57.90 - Diverticulosis of intestine, part unspecified, without perforation or abscess without bleeding Status: Acute Plan: Diagnosed via colonoscopy yesterday status post polypectomy with complete removal. GI recommendations: Benefiber 2 tsp daily Continue surveillance Probiotics from any C or [employer] store: Lactobacillus ordered. Yearly rectal exams Chest Xray: Cardiomegaly with no definite pulmonary edema. (4) Guaiac positive stools Code(s): R19.5 - Other fecal abnormalities Status: Acute Plan: See plans of GI recommendation above (5) Acute UTI Code(s): N39.0 - Urinary tract infection, site not specified Status: Acute Plan: UA: Small leukocyte esterase, associated with urinary symptoms Urine culture: Final positive for E. coli. Continue Rocephin 1g q24h until can tolerate PO (day 2) (6) Cardiomegaly Code(s): I51.7 - Cardiomegaly Status: Acute Plan: Cardiomegaly seen on chest x-ray, 4 out of 5 systolic murmur on exam, unknown past medical history Echocardiogram ordered, follow-up. EKG normal BNP 591 Careful with fluid intake (7) Dementia Code(s): F03.90 - Unspecified dementia without behavioral disturbance Status: Acute Plan: Likely dementia based on encounter Follow-up with family (8) Fibromyalgia Code(s): M79.7 - Fibromyalgia Status: Acute Plan: Chronic pain, patient sees a specialist for this Patient on Lyrica 60 mg at bedtime. (9) Hypertension Code(s): I10 - Essential (primary) hypertension Status: Acute Plan: History of hypertension per patient, Patient takes Coreg at home. BP WNL, pulse normal. Add vasotec PRN (10) Nutrition, metabolism, and development symptoms Code(s): R63.8 - Other symptoms and signs concerning food and fluid intake Status: Acute Plan: Fluids: NS @ 90mls/hr Electrolytes: BMP normal, follow-up and replete as needed Nutrition: Cardiac diet. (11) DVT prophylaxis Status: Acute Plan: SCDs only
[2018-02-13 10:00] LABS: Anion Gap 11 meq/L (5-15); Blood Urea Nitrogen 18 mg/dL (7-18); Calcium 8.2 mg/dL (8.5-10.1); Carbon Dioxide 23.5 meq/L (21.0-32.0); Chloride 107 meq/L (98-107); Glomerular Filtration Rate Greater Than 89 mL/min (>89); Glucose,Random 84 mg/dL (74-106); Potassium 3.5 meq/L (3.5-5.1); Sodium 141 meq/L (136-145)
--- NOTE | 2018-02-13 10:46 | P.PNADD ---
Addendum to Inpatient Note Additional information: Spoke to Patients daughter: Zenobia Cherry ([phone]) and reconfirmed patient' s medication and past medical history, see below. Past medical history: CHF, fibromyalgia, high blood pressure, GERD, possible stroke/TIA Surgical history: Left hip surgery, knee surgery, left rotator cuff surgery, left clavicle broken. Medications: Lasix 20 mg daily Risperdal 0.5 mg twice daily Coreg 10 mg daily 81 mg aspirin chewable Omeprazole 40 mg daily Potassium chloride 10 mEq daily 500 mg Tylenol twice daily Duloxetine 60 mg qday As needed medications: [place] 7.5 mg to 325 mg for pain Milk of magnesia/Dulcolax Tylenol 5 mg extra strength Requip: 2 mg Nitroglycerin 0.4 mg
[2018-02-13] MEDS: Sucralfate Liq 1 GM/10 ML UDC PO SCH ×2 (10:55→20:45)
--- NOTE | 2018-02-13 10:59 | P.PNGI ---
Subjective Interval history: Pt on stretcher, just returned from echo. States she would really like to go home but is concerned about her weakness. No GI complaints at this time. <Nevin Pace - Last Filed: 02/13/18 10:55> Physical Exam Vital signs: Vital Signs 02/12/18 12:45 02/12/18 14:21 02/12/18 14:30 Temperature 98.2 F Pulse Rate 62 66 74 Respiratory Rate 20 20 Blood Pressure 122/56 L 104/57 L Pulse Oximetry 99 97 02/12/18 14:45 02/12/18 15:00 02/12/18 15:15 Temperature 97.6 F Pulse Rate 76 69 61 Respiratory Rate 18 19 15 Blood Pressure 100/58 L 115/53 L 115/54 L Pulse Oximetry 93 L 94 L 94 L 02/12/18 16:00 02/12/18 20:00 02/13/18 00:00 Temperature Pulse Rate 66 96 H 91 H Respiratory Rate Blood Pressure Pulse Oximetry 02/13/18 04:00 Temperature Pulse Rate 83 Respiratory Rate Blood Pressure Pulse Oximetry Intake & Output 02/12/18 02/13/18 02/13/18 18:59 06:59 18:59 Intake Total 300 / 300 Balance 300 / 300 Weight 53.8 kg Intake: Anesthesia Amount 300 / 300 Other: Date of Last Bowel Movement 02/12/18 02/12/18 - Constitutional no acute distress - Routine HEENT Exam Head: Present: normocephalic, atraumatic - Routine Abdominal Exam Present: soft, normoactive bowel sounds. Absent: tenderness, distended - Routine Skin Exam Present: dry, warm - Routine Neurological Exam Present: alert, oriented X3 <Nevin Pace - Last Filed: 02/13/18 10:55> Vital signs: Vital Signs 02/12/18 20:00 02/13/18 00:00 02/13/18 04:00 Temperature Pulse Rate 96 H 91 H 83 Respiratory Rate Blood Pressure Pulse Oximetry 02/13/18 07:49 02/13/18 08:00 02/13/18 12:00 Temperature 98.2 F 98.0 F Pulse Rate 65 70 92 H Respiratory Rate 17 18 Blood Pressure 134/60 155/67 H Pulse Oximetry 95 94 L 02/13/18 16:00 Temperature Pulse Rate 94 H Respiratory Rate Blood Pressure Pulse Oximetry Intake & Output 02/12/18 02/13/18 02/13/18 18:59 06:59 18:59 Intake Total 400 / 400 100 / 100 Balance 400 / 400 100 / 100 Weight 53.8 kg Intake: IV 100 / 100 100 / 100 Rocephin Inj 1,000 MG In NS Inj 100 / 100 100 / 100 100 ML @ 200 mls/hr IV.SIG Q24H [facility] Rx#:[id number] Anesthesia Amount 300 / 300 Other: Date of Last Bowel Movement 02/12/18 02/12/18 02/12/18 <Rhianna Zuniga - Last Filed: 02/13/18 17:22> Results - Labs CBC & Chem 7: 02/13/18 09:00 02/13/18 09:00 Laboratory Results - last 24 hr 02/11/18 02/12/18 02/13/18 11:10 19:37 09:00 WBC 6.2 RBC 3.53 L Hgb 7.6 L 7.4 L Hct 24.9 L 23.8 L MCV 67.4 L MCH 21.1 L MCHC 31.3 L RDW 19.9 H Plt Count 264 MPV 7.9 Neut % (Auto) 62.7 Lymph % (Auto) 19.2 [place] % (Auto) 14.1 H Eos % (Auto) 3.5 Baso % (Auto) 0.5 Neut # (Auto) 3.9 Lymph # (Auto) 1.2 [place] # (Auto) 0.9 Eos # (Auto) 0.2 Baso # (Auto) 0.0 WBC Differential . Differential Comment Auto diff final Sodium Potassium Chloride Carbon Dioxide Anion Gap BUN Creatinine Estimated GFR Random Glucose Calcium Urine Color Yellow Urine Clarity Clear Urine pH 7.0 Ur Specific [place] 1.006 Urine Protein Negative Urine Glucose (UA) Negative Urine Ketones Negative Urine Occult Blood Small H Urine Nitrate Negative Urine Bilirubin Negative Urine Urobilinogen Less than 2 Ur Leukocyte Esterase Small H Urine RBC 1 Urine WBC 14 H Ur Squamous Epith Cells <1 Urine Bacteria Moderate H Urine Mucus Few H Micro UA Comment Culture indicated Urine Culture Comments Culture indicated 02/13/18 09:00 WBC RBC Hgb Hct MCV MCH MCHC RDW Plt Count MPV Neut % (Auto) Lymph % (Auto) [place] % (Auto) Eos % (Auto) Baso % (Auto) Neut # (Auto) Lymph # (Auto) [place] # (Auto) Eos # (Auto) Baso # (Auto) WBC Differential Differential Comment Sodium 141 Potassium 3.5 Chloride 107 Carbon Dioxide 23.5 Anion Gap 11 BUN 18 Creatinine 0.55 Estimated GFR Greater than 89 Random Glucose 84 Calcium 8.2 L Urine Color Urine Clarity Urine pH Ur Specific [place] Urine Protein Urine Glucose (UA) Urine Ketones Urine Occult Blood Urine Nitrate Urine Bilirubin Urine Urobilinogen Ur Leukocyte Esterase Urine RBC Urine WBC Ur Squamous Epith Cells Urine Bacteria Urine Mucus Micro UA Comment Urine Culture Comments Microbiology 02/11/18 11:10 Clean Catch Urine Urine Culture - Final Escherichia coli - Imaging Impressions Chest X-Ray 02/12/18 00:00 CONCLUSION: 1. The lungs are hyperinflated with no evidence of pneumonia. 2. Cardiomegaly with no definite pulmonary edema. <Nevin Pace - Last Filed: 02/13/18 10:55> - Labs CBC & Chem 7: 02/13/18 12:45 02/13/18 09:00 Laboratory Results - last 24 hr 02/12/18 02/13/18 02/13/18 19:37 09:00 09:00 WBC 6.2 RBC 3.53 L Hgb 7.6 L 7.4 L Hct 24.9 L 23.8 L MCV 67.4 L MCH 21.1 L MCHC 31.3 L RDW 19.9 H Plt Count 264 MPV 7.9 Neut % (Auto) 62.7 Lymph % (Auto) 19.2 [place] % (Auto) 14.1 H Eos % (Auto) 3.5 Baso % (Auto) 0.5 Neut # (Auto) 3.9 Lymph # (Auto) 1.2 [place] # (Auto) 0.9 Eos # (Auto) 0.2 Baso # (Auto) 0.0 WBC Differential . Differential Comment Auto diff final Sodium 141 Potassium 3.5 Chloride 107 Carbon Dioxide 23.5 Anion Gap 11 BUN 18 Creatinine 0.55 Estimated GFR Greater than 89 Random Glucose 84 Calcium 8.2 L 02/13/18 12:45 WBC RBC Hgb 7.4 L Hct 23.5 L MCV MCH MCHC RDW Plt Count MPV Neut % (Auto) Lymph % (Auto) [place] % (Auto) Eos % (Auto) Baso % (Auto) Neut # (Auto) Lymph # (Auto) [place] # (Auto) Eos # (Auto) Baso # (Auto) WBC Differential Differential Comment Sodium Potassium Chloride Carbon Dioxide Anion Gap BUN Creatinine Estimated GFR Random Glucose Calcium Microbiology 02/11/18 11:10 Clean Catch Urine Urine Culture - Final Escherichia coli <Rhianna Zuniga - Last Filed: 02/13/18 17:22> Assessment and Plan - Plan Assessment: - Anemic- microcytic, hypochromic with heme (+) stools Hgb was 10.5 in June, currently 6.2 Denies history of anemia, does not think she has ever had blood transfusion. Not on blood thinners. GI symptoms include chronic constipation, pt normally drinks prune juice daily but states has been off her routine lately Last BM was this morning, had a BM this morning after an hour of straining. Reports noticing some dark red blood mixed in her stool and thinks she has had prior episode of this. Denies nausea, vomiting, heartburn. She thinks she may have had EGD in the past. Has never had colonoscopy CT abdomen and pelvis W IV contrast --> No acute findings within the abdomen and pelvis. Specifically no free fluid or evidence for retroperitoneal hemorrhage. Nonacute findings include moderate hiatal hernia. Also mild fatty liver. Scoliosis with advanced degenerative disc disease. Previous left hip replacement. (02/13) H/H stable since yesterday. Pt with no GI complaints at this time. S/P EGD and colonoscopy yesterday EGD --> Zenker's diverticulum upper esophagus, difficult intubation of upper esophageal sphincter. Severe esophagitis distal esophagus-friable mucosa -biopsy. Gastritis antrum-biopsy. Hiatal hernia Colonoscopy --> Diverticulosis sigmoid,descending colon. Polyp sessile sigmoid , sessile-7 mm-hot snare polypectomy with complete removal. Tortuous colon. Semisolid stool throughout colon, some stool in cecum patient vomited, due to advance age withdrawal time was short. Internal hemorrhoids. Chest x-ray reveals no pneumonia, no leukocytosis, pt denies any SOB, afebrile Plan: EGD biopsy pending Repeat EGD in 6 weeks Protonix Carafate Probiotics Fiber supplements Pt noted to take pain medication, would recommend bowel regiment to prevent constipation Our service will sign off Have pt follow up with GI after DC Pt has been seen and examined by myself and Dr. Zuniga and this note is written on her behalf <Nevin Pace - Last Filed: 02/13/18 10:55> - Attending Attestation seen, examined agree with above transfuse 1 more unit of prbc consider hematology consult -possible IV iron <Rhianna Zuniga - Last Filed: 02/13/18 17:22>
[2018-02-13] MEDS ORDERED: Sodium Chlor 0.9% Inj 250 ML IV.SIG SCH ×2 (11:00→23:00)
[2018-02-13] MEDS: Senna/Docusate Sodium 8.6/50 MG Tablet PO SCH ×2 (11:02→20:45)
[2018-02-13] MEDS: Pantoprazole Inj 40 MG Vial IV.PUSH SCH ×2 (11:02→23:44)
--- NOTE | 2018-02-13 11:33 | ECHRPT ---
Indication: CARDIOMYOPATHY CONCLUSIONS Normal left ventricular size. Mild concentric left ventricular hypertrophy. The left ventricular systolic function is normal with an estimated ejection fraction in the range of 55-60%. The left atrial size is [id number] dilated. Mild thickening of the mitral valve leaflets. Mild mitral annular calcification. Moderate mitral valve regurgitation. Severe thickening of the aortic valve leaflets. Aortic valve mean gradient is 73.4 mmHg. Aortic valve area is 0.47 cm. There is moderate tricuspid regurgitation. The estimated pulmonary arterial pressure is 71.5 mmHg. There is estimated severe pulmonary hypertension present ( > 70 mmHg). Mild pulmonary valve regurgitation. BP: / HR: Rhythm: Atrial fibrillation, Atrial flut ter MEASUREMENTS (Male / Female) Normal Values Technical Quality:Fair 2D ECHO LV Diastolic Diameter PLAX 4.0 cm 4.2 - 5.9 / 3.9 - 5.3 cm LV Systolic Diameter PLAX 3.0 cm IVS Diastolic Thickness 1.3 cm 0.6 - 1.0 / 0.6 - 0.9 cm LVPW Diastolic Thickness 1.3 cm 0.6 - 1.0 / 0.6 - 0.9 cm LV Relative Wall Thickness 0.7 RV Internal Dim ED PLAX 3.1 cm LVOT Diameter 2.0 cm Aortic Root Diameter 2.8 cm LA Systolic Diameter LX 4.2 cm 3.0 - 4.0 / 2.7 - 3.8 cm DOPPLER AV Peak Velocity 546.0 cm/s AV Peak Gradient 119.2 mmHg AV Mean Gradient 73.4 mmHg AV Velocity Time Integral 146.0 cm LVOT Peak Velocity 81.0 cm/s LVOT Peak Gradient 2.6 mmHg LVOT Velocity Time Integral 21.8 cm AV Area Cont Eq vti 0.5 cm AV Area Cont Eq pk 0.5 cm Mitral E Point Velocity 171.0 cm/s Mitral A Point Velocity 82.3 cm/s Mitral E to A Ratio 2.1 TR Peak Velocity 392.0 cm/s TR Peak Gradient 61.5 mmHg Right Atrial Pressure 10.0 mmHg Pulmonary Artery Systolic Pressu 71.5 mmHg Right Ventricular Systolic Press 71.5 mmHg PV Peak Velocity 85.7 cm/s PV Peak Gradient 2.9 mmHg FINDINGS LEFT VENTRICLE Normal left ventricular size. Mild concentric left ventricular hypertrophy. The left ventricular systolic function is normal with an estimated ejection fraction in the range of 55-60%. RIGHT VENTRICLE Normal right ventricular size and systolic function. LEFT ATRIUM The left atrial size is [id number] dilated. RIGHT ATRIUM The right atrial size is normal. ATRIAL SEPTUM No atrial level shunt is demonstrated by color flow Doppler interrogation. AORTA The aortic root and proximal ascending aorta are normal in size on limited imaging. MITRAL VALVE Mild thickening of the mitral valve leaflets. Mild mitral annular calcification. Moderate mitral valve regurgitation. AORTIC VALVE Severe thickening of the aortic valve leaflets. Aortic valve mean gradient is 73.4 mmHg. Aortic valve area is 0.47 cm. TRICUSPID VALVE There is moderate tricuspid regurgitation. The estimated pulmonary arterial pressure is 71.5 mmHg. There is estimated severe pulmonary hypertension present ( > 70 mmHg). PULMONARY VALVE Mild pulmonary valve regurgitation. VESSELS The inferior vena cava was not well visualized. PERICARDIUM No pericardial effusion. Bj Durant MD, FACC (Electronically Signed) Final Date:13 February 2018 11:31
[2018-02-13 13:46] LABS: Hematocrit 23.5 % (35.0-46.0); Hemoglobin 7.4 gm/dL (11.6-15.3)
[2018-02-14 05:12] LABS: Hematocrit 31.6 % (35.0-46.0); Hemoglobin 9.9 gm/dL (11.6-15.3)
[2018-02-14] MEDS: Senna/Docusate Sodium 8.6/50 MG Tablet PO SCH (08:30)
[2018-02-14] MEDS: Sucralfate Liq 1 GM/10 ML UDC PO SCH (08:33)
--- NOTE | 2018-02-14 09:57 | P.DCO ---
- Diagnosis (2) Gastritis (3) Anemia (4) Urinary tract infection - Physical Therapy Order: Evaluate and treat - Home Health Nursing Order: Signs/symptoms of disease process, Medication education-adverse effect, Nursing assessment with vital signs Instructions: medication administration - Certification I have seen patient Suzanne Nunez on 02/14/18. My clinical findings support the need for the requested home health care services because: Limited mobility due to disease progression, Deconditioned with increased weakness, Limited ability to care for self, High risk of falls I certify that my clinical findings support that this patient is homebound because: Impaired cognitive ability/safety, Unsteady gait/balance, Unsafe to leave home unassisted (2) Gastritis Qualifiers: Gastritis type: unspecified gastritis Chronicity: acute Gastritis bleeding: presence of bleeding unspecified Qualified Code(s): K29.00 - Acute gastritis without bleeding (3) Anemia Qualifiers: Anemia type: unspecified type Qualified Code(s): D64.9 - Anemia, unspecified (4) Urinary tract infection Qualifiers: Urinary tract infection type: acute cystitis Hematuria presence: without hematuria Qualified Code(s): N30.00 - Acute cystitis without hematuria
--- NOTE | 2018-02-14 11:06 | P.PNFP ---
Subjective Interval history: Patient seen and examined at bedside this morning. She was transfused 1 unit of blood overnight and had no complications. She states that she is feeling a lot better, and is less tired. She is ready to go home. She denies any urinary symptoms. She also denies any chest pain, shortness of breath, abdominal pain, problems with urination or defecation. She understands that she will go home on oral antibiotics. All questions and concerns were answered at bedside. <Allyn Dickey - 02/14/18 11:05> Results - Labs Result diagrams: 02/14/18 04:10 02/13/18 09:00 <Oscar Rai - 02/14/18 16:14> Abnormal lab results 02/11/18 02/13/18 02/14/18 Range/Units 11:58 22:54 04:10 Hgb 9.9 L D (11.6-15.3) gm/dL Hct 31.6 L (35.0-46.0) % MTS Gel Crossmatch See Detail See Detail Short CBC 02/14/18 Range/Units 04:10 Hgb 9.9 L D (11.6-15.3) gm/dL Hct 31.6 L (35.0-46.0) % <Oscar Rai - 02/14/18 16:14> Abnormal lab results 02/11/18 02/13/18 02/13/18 Range/Units 11:58 12:45 22:54 Hgb 7.4 L (11.6-15.3) gm/dL Hct 23.5 L (35.0-46.0) % MTS Gel Crossmatch See Detail See Detail 02/14/18 Range/Units 04:10 Hgb 9.9 L D (11.6-15.3) gm/dL Hct 31.6 L (35.0-46.0) % MTS Gel Crossmatch Short CBC 02/13/18 02/14/18 Range/Units 12:45 04:10 Hgb 7.4 L 9.9 L D (11.6-15.3) gm/dL Hct 23.5 L 31.6 L (35.0-46.0) % <Allyn Dickey - 02/14/18 11:05> Physical Exam Vital signs: Vital Signs 02/13/18 20:00 08/09/18 23:56 02/14/18 00:00 Temperature 98.0 F 98 F 98.3 F Pulse Rate 77 86 67 Respiratory Rate 16 22 16 Blood Pressure 146/63 H 136/59 L 157/69 H Pulse Oximetry 95 94 L 95 02/14/18 00:11 02/14/18 03:09 02/14/18 04:00 Temperature 97.6 F 97.4 F L 97.4 F L Pulse Rate 83 65 65 Respiratory Rate 20 18 18 Blood Pressure 141/63 H 147/64 H 147/64 H Pulse Oximetry 95 95 95 02/14/18 08:00 02/14/18 12:00 Temperature 98.2 F 98.5 F Pulse Rate 73 61 Respiratory Rate 16 16 Blood Pressure 118/58 L 121/56 L Pulse Oximetry 93 L 96 Intake & Output 02/13/18 02/14/18 02/14/18 18:59 06:59 18:59 Intake Total 100 / 100 400 / 400 100 / 100 Balance 100 / 100 400 / 400 100 / 100 Weight 53.6 kg Intake: IV 100 / 100 100 / 100 Rocephin Inj 1,000 MG In NS Inj 100 / 100 100 / 100 100 ML @ 200 mls/hr IV.SIG Q24H [facility] Rx#:[id number] Intake (Blood Product) Amt 400 / 400 Rbc As-3 Leukoreduced Unit 400 / 400 [id number] Other: Date of Last Bowel Movement 02/12/18 02/12/18 <Oscar Rai - 02/14/18 16:14> Vital Signs 02/13/18 12:00 02/13/18 16:00 02/13/18 20:00 Temperature 98.0 F 98.3 F 98.0 F Pulse Rate 92 H 74 77 Respiratory Rate 18 18 16 Blood Pressure 155/67 H 130/64 146/63 H Pulse Oximetry 94 L 97 95 02/13/18 23:56 02/14/18 00:00 02/14/18 00:11 Temperature 98 F 98.3 F 97.6 F Pulse Rate 86 67 83 Respiratory Rate 22 16 20 Blood Pressure 136/59 L 157/69 H 141/63 H Pulse Oximetry 94 L 95 95 02/14/18 03:09 02/14/18 04:00 02/14/18 08:00 Temperature 97.4 F L 97.4 F L 98.2 F Pulse Rate 65 65 73 Respiratory Rate 18 18 16 Blood Pressure 147/64 H 147/64 H 118/58 L Pulse Oximetry 95 95 93 L Intake & Output 02/13/18 02/14/18 02/14/18 18:59 06:59 18:59 Intake Total 100 / 100 400 / 400 100 / 100 Balance 100 / 100 400 / 400 100 / 100 Weight 53.6 kg Intake: IV 100 / 100 100 / 100 Rocephin Inj 1,000 MG In NS Inj 100 / 100 100 / 100 100 ML @ 200 mls/hr IV.SIG Q24H [facility] Rx#:[id number] Intake (Blood Product) Amt 400 / 400 Rbc As-3 Leukoreduced Unit 400 / 400 [id number] Other: Date of Last Bowel Movement 02/12/18 02/12/18 <Allyn Dickey 02/14/18 11:05> - Constitutional no acute distress <Allyn Dickey 02/14/18 11:05> - Routine HEENT Exam Head: Present: normocephalic, atraumatic <Allyn Dickey 02/14/18 11:05> - Routine Respiratory Exam Present: CTA bilaterally <Allyn Dickey 02/14/18 11:05> Comments: Anterior auscultation. <Allyn Dickey 02/14/18 11:05> - Routine Cardiovascular Exam Present: murmur, irregularly irregular <Allyn Dickey 02/14/18 11:05> Comments: Irregular rate and rhythm, grade 4 out of 5 systolic murmur appreciated over the left sternal border. <Allyn Dickey 02/14/18 11:05> - Routine Abdominal Exam Present: soft, normoactive bowel sounds. Absent: tenderness, distended <Allyn Dickey 02/14/18 11:05> - Routine Neurological Exam Present: alert <Allyn Dickey 02/14/18 11:05> - Detailed Neurological Exam: Coma Scale Eye Opening: Spontaneous <Allyn Dickey 02/14/18 11:05> Verbal Response: Oriented <Allyn Dickey - 02/14/18 11:05> Motor Response: Obey commands <Allyn Dickey - 02/14/18 11:05> Pooja Coma Scale Total: 15 <Allyn Dickey - 02/14/18 11:49> Assessment and Plan - Assessment (1) Acute UTI Code(s): N39.0 - Urinary tract infection, site not specified Status: Acute (2) Afib Code(s): I48.91 - Unspecified atrial fibrillation Status: Acute (3) Gastritis Code(s): K29.70 - Gastritis, unspecified, without bleeding Status: Acute (4) Anemia requiring transfusions Code(s): D64.9 - Anemia, unspecified Status: Acute (5) Guaiac positive stools Code(s): R19.5 - Other fecal abnormalities Status: Acute (6) Diverticulosis Code(s): K57.90 - Diverticulosis of intestine, part unspecified, without perforation or abscess without bleeding Status: Acute (7) Nutrition, metabolism, and development symptoms Code(s): R63.8 - Other symptoms and signs concerning food and fluid intake Status: Acute (8) DVT prophylaxis Status: Acute <Oscar Rai - 02/14/18 16:14> (1) Acute UTI Code(s): N39.0 - Urinary tract infection, site not specified Status: Acute Plan: Patient denies dysuria this morning. UA: Small leukocyte esterase, associated with urinary symptoms Urine culture: Final positive for E. coli. Rocephin 1g q24h (day 3) Will be discharged on Keflex 500 mg PO twice daily for 2 more days. (2) Afib Code(s): I48.91 - Unspecified atrial fibrillation Status: Acute Plan: Irregularly irregular rhythm A. fib present on telemetry On Coreg at home. We will continue Coreg after discharge. Atrial dilation on echocardiogram: Suggestive of atrial fibrillation. Unable to anticoagulate patient, due to GI bleed. Discussed with patient's daughter, apparently there is some atrial valve stenosis that was discussed with her from the echocardiogram tech. She has discussed with her mother that she does not want any interventions on her aortic valves for this. They have decided to follow-up with Dr. Durant at [facility]. 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 GI recommendations: Antireflux regimen Continue PPI twice daily: Protonix 40 mg IV twice daily Soft diet Carafate liquid BID (4) Anemia requiring transfusions Code(s): D64.9 - Anemia, unspecified Status: Acute Plan: Hemoglobin increased from 7.4 to 9.9 today s/p 1 unit of RBC transfusion. Resolved. Decreased from 7.6 to 7.4 yesterday status post EGD yesterday. Possibly due to procedure. Hgb was 10.5 in June, 6.2 on admission, guaiac positive Difficult historian, but possibly increased fatigue recently Transfused 1 unit PRBCs in the ED with hemoglobin rise to 8.2. (5) Guaiac positive stools Code(s): R19.5 - Other fecal abnormalities Status: Acute Plan: See plans of GI recommendation above (6) Diverticulosis Code(s): K57.90 - Diverticulosis of intestine, part unspecified, without perforation or abscess without bleeding Status: Acute Plan: Diagnosed via colonoscopy yesterday status post polypectomy with complete removal. GI recommendations: Benefiber 2 tsp daily Continue surveillance Probiotics from any [employer] or [employer] store: Lactobacillus ordered. Yearly rectal exams Chest Xray: Cardiomegaly with no definite pulmonary edema. (7) Nutrition, metabolism, and development symptoms Code(s): R63.8 - Other symptoms and signs concerning food and fluid intake Status: Acute Plan: Fluids: NS @ 90mls/hr Electrolytes: BMP normal, follow-up and replete as needed Nutrition: Cardiac diet. (8) DVT prophylaxis Status: Acute Plan: SCDs only <Allyn Dickey - 02/14/18 11:48> - Attending Attestation The exam, history, and the medical decision-making described in the above note were completed with the assistance of the resident physician. I reviewed and agree with the findings presented. I attest that I had a kakm-er-wram encounter with the patient on the same day, and personally performed and documented my assessment and findings in the medical record.Shane BEVERLY <Oscar Rai - 02/14/18 16:14> <Laqua,Allyn - Last Filed: 02/14/18 11:48> (3) Gastritis Qualifiers: Gastritis type: unspecified gastritis Chronicity: acute Gastritis bleeding: presence of bleeding unspecified Qualified Code(s): K29.00 - Acute gastritis without bleeding <Oscar Rai - Last Filed: 02/14/18 16:14> (3) Gastritis Qualifiers: Gastritis type: unspecified gastritis Chronicity: acute Gastritis bleeding: presence of bleeding unspecified Qualified Code(s): K29.00 - Acute gastritis without bleeding <LaquaAllyn - Last Filed: 02/14/18 11:48> (3) Gastritis Qualifiers: Gastritis type: unspecified gastritis Chronicity: acute Gastritis bleeding: presence of bleeding unspecified Qualified Code(s): K29.00 - Acute gastritis without bleeding <Oscar Rai - Last Filed: 02/14/18 16:14> (3) Gastritis Qualifiers: Gastritis type: unspecified gastritis Chronicity: acute Gastritis bleeding: presence of bleeding unspecified Qualified Code(s): K29.00 - Acute gastritis without bleeding
[2018-02-14] MEDS: Pantoprazole Inj 40 MG Vial IV.PUSH SCH (12:50)
--- NOTE | 2018-02-14 14:28 | P.DS ---
Date of admission: 02/11/18 14:04 Primary care physician: Fidencio Harris MD Brief History from admission: 87 y/o F, states she does not know why she is here today. However, she is AAOx3. She was feeling very "sick" before she came in here. She has been feeling tired "for many years" with fibromyalgia, but she feels more weak right now. Patient keeps repeating "I came here for low blood pressure, I do not know why". Patient does admit that at some point she has been told that she needs blood. She states she cannot remember a lot of things and cannot provide us a history. She does not remember her medical history. She does not remember her medication list. She says that she has pain all of her body and that is normal for her, and she does not have any new pains anywhere. On review of systems, she admits to pain and burning on urination for the last 2-3 days. She states she has chronic constipation, and no recent diarrhea. Denies any chest pain or shortness of breath. Denies dizziness. Denies current confusion. DS: Diagnosis - Discharge Diagnosis (1) Acute UTI Status: Acute (2) Afib Status: Acute (3) Gastritis Status: Acute (4) Anemia requiring transfusions Status: Acute (5) Guaiac positive stools Status: Acute (6) Diverticulosis Status: Acute (7) Nutrition, metabolism, and development symptoms Status: Acute (8) DVT prophylaxis Status: Acute DS: Medications - Discharge Medications Prescriptions: cephalexin [Keflex] 500 mg PO BID 2 Days #4 cap Lactobacillus acidoph-L.bulgar [Floranex] 1 gm PO TID 30 Days #90 each pantoprazole [Protonix] 40 mg PO BID 30 Days #60 tab sucralfate 10 ml PO BID 30 Days #600 ml DS: Summary Hospital Course: 87-year-old female presented to the emergency room due to fatigue and altered mental status, hemoglobin was 6.2 on admission to the emergency room and patient was guaiac positive. Patient also had an associated UTI with leukoesterase seen on UA. A systolic murmur of 4 out of 6 was appreciated on physical exam. Echocardiogram was ordered, patient was started on Rocephin for UTI. Patient was transfused 1 unit of red packed blood cells and hemoglobin increased to 7.6, patient became more alert and oriented, and less fatigued. Patient underwent a colonoscopy and endoscopy that revealed severe gastritis, hiatal hernia, Zenker's diverticulum and diverticulosis. Biopsies were done. She was started on Protonix 40 mg twice daily and transfused 1 more unit of red blood cells since her hemoglobin began to drop status post endoscopy and colonoscopy. The echocardiogram results revealed mild atrial dilation and questionable aortic stenosis, her telemetry showed atrial fibrillation, and an irregular regular beat was appreciated on physical exam but patient did not want any valvular interventions done in hospital. She was discharged to her [facility] and told to continue her home medications which included Coreg to control her A. fib. She was discharged on Keflex 500 mg p.o. twice daily for 2 more days, lactobacillus, milk of magnesia, Protonix 40 mg twice daily, sucralfate 10 mg p.o. twice daily. She is to follow-up with Dr. Durant at [facility] concerning her cardiac concerns. She is also to follow-up with GI for her biopsy results and repeat EGD in 6 weeks. - Time Spent with Patient Total time spent providing and/or coordinating discharge services: Less than 30 minutes - Quality: VTE Deep Vein Thrombosis/Pulmonary Embolism Present on Admission: No Exam Vital signs: Vital Signs 02/13/18 16:00 02/13/18 20:00 02/13/18 23:56 Temperature 98.3 F 98.0 F 98 F Pulse Rate 74 77 86 Respiratory Rate 18 16 22 Blood Pressure 130/64 146/63 H 136/59 L Pulse Oximetry 97 95 94 L 02/14/18 00:00 02/14/18 00:11 02/14/18 03:09 Temperature 98.3 F 97.6 F 97.4 F L Pulse Rate 67 83 65 Respiratory Rate 16 20 18 Blood Pressure 157/69 H 141/63 H 147/64 H Pulse Oximetry 95 95 95 02/14/18 04:00 02/14/18 08:00 Temperature 97.4 F L 98.2 F Pulse Rate 65 73 Respiratory Rate 18 16 Blood Pressure 147/64 H 118/58 L Pulse Oximetry 95 93 L Intake & Output 02/13/18 02/14/18 02/14/18 18:59 06:59 18:59 Intake Total 100 / 100 400 / 400 100 / 100 Balance 100 / 100 400 / 400 100 / 100 Weight 53.6 kg Intake: IV 100 / 100 100 / 100 Rocephin Inj 1,000 MG In NS Inj 100 / 100 100 / 100 100 ML @ 200 mls/hr IV.SIG Q24H [facility] Rx#:[id number] Intake (Blood Product) Amt 400 / 400 Rbc As-3 Leukoreduced Unit 400 / 400 [id number] Other: Date of Last Bowel Movement 02/12/18 02/12/18 Results Procedures completed during hospitalization: Endoscopy and colonoscopy on 02/12 Pending studies at discharge: Pending at discharge 02/12/18 08:43 Surgical [PTH] Routine Labs on day of discharge: Labs from last 24 hours 02/14/18 02/13/18 02/11/18 04:10 22:54 11:58 Hgb 9.9 L D Hct 31.6 L MTS Gel Crossmatch See Detail See Detail - Impressions ITS Impressions Abdomen/Pelvis CT 02/11/18 10:24 CONCLUSION: 1. No acute findings within the abdomen and pelvis. Specifically no free fluid or evidence for retroperitoneal hemorrhage. 2. Nonacute findings include moderate hiatal hernia. Also mild fatty liver. Scoliosis with advanced degenerative disc disease. Previous left hip replacement. Chest X-Ray 02/12/18 00:00 CONCLUSION: 1. The lungs are hyperinflated with no evidence of pneumonia. 2. Cardiomegaly with no definite pulmonary edema. Discharge Plan - Discharge Disposition Patient Disposition: [facility] - Discharge Condition Condition: Stable - Discharge Order Discharge Orders: Discharge Order (Routine); Ordered 02/14/18 Ordered By: Allyn Dickey - Discharge Details Discharge Comment: Please continue her home medications except omperazole at her [facility]: - Physicians Team Primary Care Provider: Fidencio Harris Attending Provider: Oscar Rai Other Providers: Rhianna Zuniga MD ; Jagdish Chaidez MD
--- NOTE | 2018-02-14 16:00 | P.PNGI ---
Subjective Interval history: Patient is resting in the bed chief complaint generalized legs ache Denies any GI symptoms of nausea vomiting abdominal pain diarrhea or constipation <Leticia Dow - Last Filed: 02/14/18 15:54> Physical Exam Vital signs: Vital Signs 02/13/18 16:00 02/13/18 20:00 02/13/18 23:56 Temperature 98.3 F 98.0 F 98 F Pulse Rate 74 77 86 Respiratory Rate 18 16 22 Blood Pressure 130/64 146/63 H 136/59 L Pulse Oximetry 97 95 94 L 02/14/18 00:00 02/14/18 00:11 02/14/18 03:09 Temperature 98.3 F 97.6 F 97.4 F L Pulse Rate 67 83 65 Respiratory Rate 16 20 18 Blood Pressure 157/69 H 141/63 H 147/64 H Pulse Oximetry 95 95 95 02/14/18 04:00 02/14/18 08:00 02/14/18 12:00 Temperature 97.4 F L 98.2 F 98.5 F Pulse Rate 65 73 61 Respiratory Rate 18 16 16 Blood Pressure 147/64 H 118/58 L 121/56 L Pulse Oximetry 95 93 L 96 Intake & Output 02/13/18 02/14/18 02/14/18 18:59 06:59 18:59 Intake Total 100 / 100 400 / 400 100 / 100 Balance 100 / 100 400 / 400 100 / 100 Weight 53.6 kg Intake: IV 100 / 100 100 / 100 Rocephin Inj 1,000 MG In NS Inj 100 / 100 100 / 100 100 ML @ 200 mls/hr IV.SIG Q24H [facility] Rx#:[id number] Intake (Blood Product) Amt 400 / 400 Rbc As-3 Leukoreduced Unit 400 / 400 [id number] Other: Date of Last Bowel Movement 02/12/18 02/12/18 - Constitutional no acute distress - Routine HEENT Exam ENT: Present: mucous membranes moist - Routine Cardiovascular Exam Present: S1, S2 - Routine Abdominal Exam Present: soft (Round, no tenderness or distention no abdominal pain) - Routine Skin Exam Present: pallor - Routine Neurological Exam Present: alert (Answer simple questions but does appear to have some confusion) <Leticia Dow - Last Filed: 02/14/18 15:54> Vital signs: Vital Signs 02/13/18 20:00 02/13/18 23:56 02/14/18 00:00 Temperature 98.0 F 98 F 98.3 F Pulse Rate 77 86 67 Respiratory Rate 16 22 16 Blood Pressure 146/63 H 136/59 L 157/69 H Pulse Oximetry 95 94 L 95 02/14/18 00:11 02/14/18 03:09 02/14/18 04:00 Temperature 97.6 F 97.4 F L 97.4 F L Pulse Rate 83 65 65 Respiratory Rate 20 18 18 Blood Pressure 141/63 H 147/64 H 147/64 H Pulse Oximetry 95 95 95 02/14/18 08:00 02/14/18 12:00 Temperature 98.2 F 98.5 F Pulse Rate 73 61 Respiratory Rate 16 16 Blood Pressure 118/58 L 121/56 L Pulse Oximetry 93 L 96 Intake & Output 02/13/18 02/14/18 02/14/18 18:59 06:59 18:59 Intake Total 100 / 100 400 / 400 100 / 100 Balance 100 / 100 400 / 400 100 / 100 Weight 53.6 kg Intake: IV 100 / 100 100 / 100 Rocephin Inj 1,000 MG In NS Inj 100 / 100 100 / 100 100 ML @ 200 mls/hr IV.SIG Q24H [facility] Rx#:[id number] Intake (Blood Product) Amt 400 / 400 Rbc As-3 Leukoreduced Unit 400 / 400 [id number] Other: Date of Last Bowel Movement 02/12/18 02/12/18 <Rhianna Zuniga - Last Filed: 02/14/18 17:16> Results - Labs CBC & Chem 7: 02/14/18 04:10 02/13/18 09:00 Laboratory Results - last 24 hr 02/11/18 02/13/18 02/14/18 11:58 22:54 04:10 Hgb 9.9 L D Hct 31.6 L MTS Gel Crossmatch See Detail See Detail - Procedures Endoscopy and colonoscopy on 02/12 <Leticia Dow - Last Filed: 02/14/18 15:54> - Labs CBC & Chem 7: 02/14/18 04:10 02/13/18 09:00 Laboratory Results - last 24 hr 02/11/18 02/13/18 02/14/18 11:58 22:54 04:10 Hgb 9.9 L D Hct 31.6 L MTS Gel Crossmatch See Detail See Detail <Rhianna Zuniga - Last Filed: 02/14/18 17:16> Assessment and Plan - Plan Assessment: - Anemic- microcytic, hypochromic with heme (+) stools Hgb was 10.5 in June, currently 6.2 Denies history of anemia, does not think she has ever had blood transfusion. Not on blood thinners. GI symptoms include chronic constipation, pt normally drinks prune juice daily but states has been off her routine lately Last BM was this morning, had a BM this morning after an hour of straining. Reports noticing some dark red blood mixed in her stool and thinks she has had prior episode of this. Denies nausea, vomiting, heartburn. She thinks she may have had EGD in the past. Has never had colonoscopy CT abdomen and pelvis W IV contrast --> No acute findings within the abdomen and pelvis. Specifically no free fluid or evidence for retroperitoneal hemorrhage. Nonacute findings include moderate hiatal hernia. Also mild fatty liver. Scoliosis with advanced degenerative disc disease. Previous left hip replacement. (02/13) H/H stable since yesterday. Pt with no GI complaints at this time. S/P EGD and colonoscopy yesterday EGD --> Zenker's diverticulum upper esophagus, difficult intubation of upper esophageal sphincter. Severe esophagitis distal esophagus-friable mucosa -biopsy. Gastritis antrum-biopsy. Hiatal hernia Colonoscopy --> Diverticulosis sigmoid,descending colon. Polyp sessile sigmoid , sessile-7 mm-hot snare polypectomy with complete removal. Tortuous colon. Semisolid stool throughout colon, some stool in cecum patient vomited, due to advance age withdrawal time was short. Internal hemorrhoids. Chest x-ray reveals no pneumonia, no leukocytosis, pt denies any SOB, afebrile 02/14/18 currently patient is fairly comfortable except for generalized muscle skeletal leg pain. No GI symptoms noted of any nausea vomiting or abdominal pain no obvious bleeding current hemoglobin stable at 9.9. Patient is status post EGD colonoscopy and suggestion was to repeat EGD in 6 weeks. Discussed with daughter. Discussed bowel regimen with patient if symptoms of constipation after 2-3 days. We can follow-up with patient on an outpatient basis Plan: Diet as tolerated Biopsies pending Protonix Carafate Patient seen per myself and Dr. Zuniga, note was written on her behalf <Leticia Dow - Last Filed: 02/14/18 15:54> - Attending Attestation agree with above ok to dc home from [facility] if dc fu office <Rhianna Zuniga - Last Filed: 02/14/18 17:16>
== END 2018-02-14 15:43 ==
LOC: NEPE 09:15 → NEDA 14:04 → N04 17:36
PROVIDERS: ADMIT Family Medicine; ATTEND Family Medicine
PROC: PANENDO (2018-02-12 13:23)
PROC: COLONOS (2018-02-12 13:23)

== ENCOUNTER 2018-06-20 11:48 | Observation (INO) ==
[2018-06-20 12:03] VITALS: O2SAT 95
[2018-06-20 12:27] LABS: Baso % (Auto) 0.6 % (0.0-2.0); Eos # (Auto) 0.1 th/mm3 (0.0-0.4); Eos % (Auto) 2.1 % (0.0-4.0); Hematocrit 35.5 % (35.0-46.0); Hemoglobin 11.9 gm/dL (11.6-15.3); Lymph # (Auto) 0.8 th/mm3 (1.0-4.8); Lymph % (Auto) 19.3 % (9.0-44.0); Mean Corpuscular HGB Conc 33.6 % (32.0-36.0); Mean Corpuscular Hemoglobin 29.4 pg (27.0-34.0); Mean Corpuscular Volume 87.5 fL (80.0-100.0); Mean Platelet Volume 7.7 fL (7.0-11.0); Mono # (Auto) 0.4 th/mm3 (0.0-0.9); Mono % (Auto) 10.7 % (0.0-8.0); Neut # (Auto) 2.7 th/mm3 (1.8-7.7); Neut % (Auto) 67.3 % (16.0-70.0); Platelet Count 200 th/mm3 (150-450); Red Blood Count 4.06 mil/mm3 (4.00-5.30)
[2018-06-20 12:37] LABS: Activated Partial Thrombo Time 28.5 sec (23.4-31.7); Prothrombin Time 10.4 sec (9.8-11.6)
[2018-06-20 12:47] LABS: Alanine Aminotransferase 13 U/L (10-53); Albumin 3.4 g/dL (3.4-5.0); Anion Gap 10 meq/L (5-15); Aspartate Aminotransferase 10 U/L (15-37); Blood Urea Nitrogen 14 mg/dL (7-18); Calcium 8.1 mg/dL (8.5-10.1); Chloride 107 meq/L (98-107); Glomerular Filtration Rate 89 mL/min (>89); Glucose,Random 106 mg/dL (74-106); Potassium 4.2 meq/L (3.5-5.1); Sodium 141 meq/L (136-145)
[2018-06-20 12:51] LABS: Alkaline Phosphatase 75 U/L (45-117); Total Protein 7.2 g/dL (6.4-8.2)
--- NOTE | 2018-06-20 13:01 | XR ---
EXAM DATE: 06/20/2018 12:53 PM EST AGE/SEX: 88 years / Female INDICATIONS: Abnormal heart rate, chest pain. CLINICAL DATA: This is the patient's initial encounter. Patient reports that signs and symptoms have been present for 1 day and indicates a pain score of 2/10. MEDICAL/SURGICAL HISTORY: . Gastroesophageal reflux disease. Hypertension. Fibromyalgia None. . [place] [facility] [place]. . FINDINGS: A single AP view of the chest demonstrates the lungs to be symmetrically aerated without evidence of mass, infiltrate or effusion. The cardiomediastinal contours are unremarkable. Osseous structures a re patent with mild scoliosis. There are overlying electrocardiogram leads. CONCLUSION: No acute cardiopulmonary disease. Electronically signed by: Ronal Lynch MD Board Certified Radiologist 06/20/2018 1:00 PM EST
[2018-06-20 13:03] LABS: Creatine Kinase 44 U/L (26-192)
[2018-06-20 13:13] LABS: Ovalocytes 1+
--- NOTE | 2018-06-20 13:19 | ED ---
HPI General Chief complaint: Chest Pain Stated complaint: Cardiac Complaint EVAC Time Seen by Provider: 06/20/18 11:51 Source: patient Mode of arrival: ambulatory Limitations: no limitations History of Present Illness HPI narrative: Patient is an 88 year old female who comes in complaining of left sided chest pain. She says this pain started today and radiates down her left arm. She was given nitro by EMS on the way here and says this relieved some of her symptoms. She denies shortness of breath, cough or cold symptoms. She denies nausea or vomiting. She does have a cardiac history and has chest pain on occasion. Severity is moderate. Related Data Home Medications Medication Instructions Recorded Confirmed Lactobacillus acidoph-L.bulgar 1 tab PO BID 04/20/18 06/20/18 [Floranex] acetaminophen 500 mg PO BID 04/20/18 06/20/18 carvedilol phosphate [Coreg CR] 10 mg PO HS 04/20/18 06/20/18 duloxetine 30 mg PO HS 04/20/18 06/20/18 furosemide [Lasix] 20 mg PO DAILY 04/20/18 06/20/18 hydrocodone-acetaminophen [[place]] 1 tab PO DAILY 04/20/18 06/20/18 pantoprazole 40 mg PO BID 04/20/18 06/20/18 potassium chloride 10 meq PO DAILY 04/20/18 06/20/18 risperidone [Risperdal] 0.5 mg PO BID 04/20/18 06/20/18 sucralfate 10 ml PO BID 04/20/18 06/20/18 ferrous sulfate 325 mg PO BID 05/15/18 06/20/18 Allergies Allergy/AdvReac Type Severity Reaction Status Date / Time duloxetine [From Cymbalta] Allergy unknown Verified 06/20/18 12:05 buspirone AdvReac Intermediate Drowsiness Verified 06/10/18 08:13 codeine AdvReac Intermediate Gastrointestinal Verified 06/10/18 08:13 Upset lorazepam AdvReac Intermediate Drowsiness Verified 06/10/18 08:13 pregabalin AdvReac Intermediate Gastrointestinal Verified 06/10/18 08:13 Upset Review of Systems ROS: all other systems reviewed are negative Constitutional Denies chills and Denies fever(s) ENT Denies dizziness Cardiovascular Reports chest pain Respiratory Denies cough and Denies dyspnea Gastrointestinal Denies abdominal pain, Denies nausea and Denies vomiting Musculoskeletal Denies myalgias and Denies arthralgias Integumentary/Breasts Denies sores and Denies wounds Neurologic Denies focal weakness and Denies numbness [facility] Medical History Medical History Dementia (Acute) Cardiomegaly (Acute) Fibromyalgia (Acute) Osteoporosis (Acute) Hypertension (Acute) Aortic stenosis, severe (Acute) Arthritis (Acute) Chronic pain (Acute) Constipation (Acute) Falls (Acute) Fracture of left hip (Acute) GERD (gastroesophageal reflux disease) (Acute) [place] (hard of hearing) (Acute) Head injury (Acute) History of hysterectomy (Acute) Mood disorder (Acute) Restless leg syndrome (Acute) Surgical History Surgical History History of cataract removal with insertion of prosthetic lens (Acute) History of hip surgery (Acute) History of shoulder surgery (Acute) Social History Social History Substance History: No History of Abuse Second Hand Smoke Exposure: No Smoking Status: Never smoker How Often Do You Have a Drink Containing Alcohol: Never Recent Travel in [facility] within the Last 8 Weeks: No Recent Out of Country Travel within the Last 8 Weeks: No Immunization History Tetanus Immunization: Unsure Exam Narrative Exam Narrative: GENERAL: Awake and alert, in no acute distress. SKIN: Focused skin assessment warm/dry. HEAD: Atraumatic. Normocephalic. EYES: Pupils equal and round. No scleral icterus. No injection or drainage. ENT: No nasal bleeding or discharge. Mucous membranes pink and moist. NECK: Trachea midline. No JVD. CARDIOVASCULAR: Regular rate and rhythm. No murmur appreciated. RESPIRATORY: No accessory muscle use. Clear to auscultation. Breath sounds equal bilaterally. GASTROINTESTINAL: Abdomen soft, non-tender, nondistended. MUSCULOSKELETAL: No obvious deformities. No clubbing. No cyanosis. No edema. NEUROLOGICAL: Awake and alert. No obvious cranial nerve deficits. Motor grossly within normal limits. Normal speech. PSYCHIATRIC: Appropriate mood and affect; insight and judgment normal. Course Initial Documented Vital Signs Temperature 98.8 F 06/20/18 11:53 Pulse Rate 76 12/14/18 11:53 Respiratory Rate 19 06/20/18 11:53 Blood Pressure 103/59 L 06/20/18 11:53 Pulse Oximetry 95 06/20/18 11:53 Last Documented Vital Signs Temperature 97.9 F 06/20/18 16:00 Pulse Rate 70 06/20/18 16:00 Respiratory Rate 16 06/20/18 16:00 Blood Pressure 126/58 L 06/20/18 16:00 Pulse Oximetry 95 06/20/18 16:00 Medical Decision Making MDM Narrative Medical decision making narrative: Patient is an 88 year old female who comes in complaining of left sided chest pain. Exam shows no acute abnormalities. IV established, labs sent. Labs show no acute abnormalities, Troponin is negative. CXR shows no acute abnormalities. Given Aspirin. Patient will be placed in chest pain center for further management. Medical Screen Exam Complete: Yes Emergency Medical Condition: Yes Differential Diagnosis Differential Diagnosis: ACS vs NSTEMI vs STEMI Medical Records Medical records reviewed: Yes I reviewed the patient's medical records. Lab Data Lab results reviewed: Yes I reviewed the patient's lab results. Result diagrams: 06/20/18 12:10 06/20/18 12:10 Lab Results 06/20/18 06/20/18 06/20/18 Range/Units 12:10 12:10 12:10 WBC 4.0 (4.0-11.0) th/mm3 RBC 4.06 (4.00-5.30) mil/mm3 Hgb 11.9 (11.6-15.3) gm/dL Hct 35.5 (35.0-46.0) % MCV 87.5 (80.0-100.0) fL MCH 29.4 (27.0-34.0) pg MCHC 33.6 (32.0-36.0) % RDW 23.0 H (11.6-17.2) % Plt Count 200 (150-450) th/mm3 MPV 7.7 (7.0-11.0) fL Prelim Diff (Auto) Slide review pending Neut % (Auto) 67.3 (16.0-70.0) % Lymph % (Auto) 19.3 (9.0-44.0) % [place] % (Auto) 10.7 H (0.0-8.0) % Eos % (Auto) 2.1 (0.0-4.0) % Baso % (Auto) 0.6 (0.0-2.0) % Neut # (Auto) 2.7 (1.8-7.7) th/mm3 Lymph # (Auto) 0.8 L (1.0-4.8) th/mm3 [place] # (Auto) 0.4 (0.0-0.9) th/mm3 Eos # (Auto) 0.1 (0.0-0.4) th/mm3 Baso # (Auto) 0.0 (0.0-0.2) th/mm3 WBC Differential . Diff Scan Auto diff confirmed Differential Comment . Ovalocytes 1+ H (None) PT 10.4 (9.8-11.6) sec INR 1.0 Ratio APTT 28.5 (23.4-31.7) sec Sodium (136-145) meq/L Potassium (3.5-5.1) meq/L Chloride (98-107) meq/L Carbon Dioxide (21.0-32.0) meq/L Anion Gap (5-15) meq/L BUN (7-18) mg/dL Creatinine (0.50-1.00) mg/dL Estimated GFR (>89) mL/min Random Glucose (74-106) mg/dL Calcium (8.5-10.1) mg/dL Total Bilirubin (0.2-1.0) mg/dL AST (15-37) U/L ALT (10-53) U/L Alkaline Phosphatase (45-117) U/L Total Creatine Kinase (26-192) U/L Troponin I (0.02-0.05) ng/mL B-Natriuretic Peptide 437 H (0-100) pg/mL Total Protein (6.4-8.2) g/dL Albumin (3.4-5.0) g/dL 06/20/18 06/20/18 06/20/18 Range/Units 12:10 14:30 17:50 WBC (4.0-11.0) th/mm3 RBC (4.00-5.30) mil/mm3 Hgb (11.6-15.3) gm/dL Hct (35.0-46.0) % MCV (80.0-100.0) fL MCH (27.0-34.0) pg MCHC (32.0-36.0) % RDW (11.6-17.2) % Plt Count (150-450) th/mm3 MPV (7.0-11.0) fL Prelim Diff (Auto) Neut % (Auto) (16.0-70.0) % Lymph % (Auto) (9.0-44.0) % [place] % (Auto) (0.0-8.0) % Eos % (Auto) (0.0-4.0) % Baso % (Auto) (0.0-2.0) % Neut # (Auto) (1.8-7.7) th/mm3 Lymph # (Auto) (1.0-4.8) th/mm3 [place] # (Auto) (0.0-0.9) th/mm3 Eos # (Auto) (0.0-0.4) th/mm3 Baso # (Auto) (0.0-0.2) th/mm3 WBC Differential Diff Scan Differential Comment Ovalocytes (None) PT (9.8-11.6) sec INR Ratio APTT (23.4-31.7) sec Sodium 141 (136-145) meq/L Potassium 4.2 (3.5-5.1) meq/L Chloride 107 (98-107) meq/L Carbon Dioxide 24.0 (21.0-32.0) meq/L Anion Gap 10 (5-15) meq/L BUN 14 (7-18) mg/dL Creatinine 0.63 (0.50-1.00) mg/dL Estimated GFR 89 (>89) mL/min Random Glucose 106 (74-106) mg/dL Calcium 8.1 L (8.5-10.1) mg/dL Total Bilirubin 0.2 (0.2-1.0) mg/dL AST 10 L (15-37) U/L ALT 13 (10-53) U/L Alkaline Phosphatase 75 (45-117) U/L Total Creatine Kinase 44 38 40 (26-192) U/L Troponin I Less than 0.02 L Less than 0.02 L Less than 0.02 L (0.02-0.05) ng/mL B-Natriuretic Peptide (0-100) pg/mL Total Protein 7.2 (6.4-8.2) g/dL Albumin 3.4 (3.4-5.0) g/dL Imaging Data Radiologist's impression: Chest X-Ray 06/20/18 12:02 CONCLUSION: No acute cardiopulmonary disease. ECG Data EKG Prior to Arrival: No Attestation: I personally reviewed and interpreted this ECG as follows: Interpretation: ECG shows afib Discharge Plan Discharge Disposition Patient Disposition: ED Admit(ED Internal Use Only) Discharge Condition Condition: Stable Discharge Order Discharge Orders: Discharge Order (Routine); Ordered 06/20/18 Ordered By: Joi Arizmendi ED Use Only Admit Order (Routine); Ordered 06/20/18 Ordered By: Tran Estrada Discharge Details Anticipated Discharge Date: 06/20/18 Diagnosis: Chest pain Physicians Team ED Provider: Tran Estrada Primary Care Provider: Fidencio Harris Attending Provider: Fidencio Gomez Other Providers: Marbella Lanza Status ED Status: Left Department Discharge Information Discharge Date/Time: 06/20/18 14:41
--- NOTE | 2018-06-20 14:37 | P.HPCA ---
History of Present Illness Primary Care Physician: Fidencio Harris MD Chief Complaint: Chest pain History of Present Illness: 88 year old female with history of aortic stenosis, hypertension, fibromyalgia, chronic pain, and GERD presents emergency room for further evaluation of nonexertional chest pain and "heart pounding." Onset 8 AM. Location left anterior chest. Characterized as an ache. Radiation to left shoulder. Duration constant. Moderate in severity initially now described as mild. Associated symptoms included mild dyspnea. No associated symptoms of nausea, vomiting, or diaphoresis. Palpation of chest and shoulder makes pain worse. No relieving factors. Palpations resolved early in morning. No dizziness of syncope during palpations. Endorses similar palpations a few weeks ago, which lasted "all evening." Reports known aortic stenosis, diagnosed February 2018. Followed up with Dr. Durant who recommended TAVR procedure which she declined. No recent illness, fall, or known injury. Past cardiac testing 02/13/18 Echocardiogram- Normal LV size. Mild concentric LVH. The LVSF normal with est. EF range of 55-60%. The left atrial size is moderate to severely dilated. Mild thickening of the mitral valve leaflets. Mild mitral annular calcification. Severe thickening of the aortic valve leaflets. Aortic valve mean gradient is 73.4 mmHg. Aortic valve are is 0.47 cm. Moderate tricuspid regurgitation. The estimated pulmonary arterial pressure is 71.5mmHg. There is estimated sever pulmonary hypertension present (>70 mmHg). Mild pulmonary valve regurgitation. Does not recall ever completing cardiac stress testing. Social history Known hypertension. No known hyperlipidemia, CAD, diabetes, or congestive heart failure. Lifelong non-smoker. No alcohol use. Lives in an assisted living facility. Ambulates with a walker. Reports becoming weak with any exertional, progressive decreasing activity level over last year. - Diagnosis (1) Atypical chest pain (2) Aortic stenosis, severe Review of Systems All other systems reviewed negative except as stated in HPI PMFSH - History History Provided By: Patient, Family Member - Medical History Medical History: Medical History (Last Updated 06/20/18 @ 14:33 by AVIVA Ortega) Dementia (Acute) Cardiomegaly (Acute) Fibromyalgia (Acute) Osteoporosis (Acute) Hypertension (Acute) Aortic stenosis, severe Arthritis Chronic pain Constipation Falls Fracture of left hip GERD (gastroesophageal reflux disease) [place] (hard of hearing) Head injury History of hysterectomy Mood disorder Restless leg syndrome - Surgical History Surgical History: Surgical History (Last Reviewed 06/20/18 @ 14:33 by AVIVA Ortega) History of cataract removal with insertion of prosthetic lens History of hip surgery History of shoulder surgery - Social History I have reviewed the patient's Social History: Yes - Tobacco History Second Hand Smoke Exposure: No Tobacco Use In Past 30 Days: No Smoking Status: Never smoker - Alcohol History How Often Do You Have a Drink Containing Alcohol: Never - Substance Use History Substance History: No History of Abuse - Travel History Recent Travel in the [place] Within the Last 8 Weeks: No Recent Travel Out of the Country Within the Last 8 Weeks: No - Immunization History Tetanus Immunization: Unsure Medications and Allergies Active Medications: Active Medications Nitroglycerin (Nitrostat Sl) 0.4 mg SL Q5M PRN PRN Reason: CHEST PAIN Sodium Chloride (Ns Flush) 2 ml IV.FLUSH BID MADDY Sodium Chloride (Ns Flush) 2 ml IV.FLUSH UNSCH PRN PRN Reason: FLUSH AFTER USING IV ACCESS Allergies Allergy/AdvReac Type Severity Reaction Status Date / Time duloxetine [From Cymbalta] Allergy unknown Verified 06/20/18 12:05 buspirone AdvReac Intermediate Drowsiness Verified 06/10/18 08:13 codeine AdvReac Intermediate Gastrointestinal Verified 06/10/18 08:13 Upset lorazepam AdvReac Intermediate Drowsiness Verified 06/10/18 08:13 pregabalin AdvReac Intermediate Gastrointestinal Verified 06/10/18 08:13 Upset Home Medications Medication Instructions Recorded Confirmed Type Lactobacillus acidoph-L.bulgar 1 tab PO BID 04/20/18 06/20/18 History [Floranex] acetaminophen 500 mg PO BID 04/20/18 06/20/18 History carvedilol phosphate [Coreg CR] 10 mg PO HS 04/20/18 06/20/18 History duloxetine 30 mg PO HS 04/20/18 06/20/18 History furosemide [Lasix] 20 mg PO DAILY 04/20/18 06/20/18 History hydrocodone-acetaminophen [[place]] 1 tab PO DAILY 04/20/18 06/20/18 History pantoprazole 40 mg PO BID 04/20/18 06/20/18 History potassium chloride 10 meq PO DAILY 04/20/18 06/20/18 History risperidone [Risperdal] 0.5 mg PO BID 04/20/18 06/20/18 History sucralfate 10 ml PO BID 04/20/18 06/20/18 History ferrous sulfate 325 mg PO BID 05/15/18 06/20/18 History Exam Vital signs: Vital Signs 06/20/18 11:53 06/20/18 12:02 Temperature 98.8 F Pulse Rate 76 Respiratory Rate 19 Blood Pressure 103/59 L Pulse Oximetry 95 95 Intake & Output 06/19/18 06/20/18 06/20/18 18:59 06:59 18:59 Weight 53.07 kg Narrative: GENERAL: Alert WN, WD, NAD, pleasant, elderly female HEAD: NC, AT EYES: Sclera clear, conjunctiva without injection ENT: Mucous membranes pink and moist NECK: Supple, no masses, trachea midline CV: RRR, 4/6 systolic murmur with radiation to left carotid, no rub, gallop, or JVD. Left anterior chest discomfort easily reproduced with light palpation. RESP: Clear lungs throughout bilateral, no crackles, wheeze, or rhonchi, symmetrical chest rise, nonlabored, able to speak in full sentences ABD: Soft, NT, ND, no masses, positive bowel tones BACK: Mild scoliosis EXT: Pulses +2x4, no dependent edema MS: Normal tone x4 extremities, no obvious deformities, full range of motion, left shoulder discomfort reproduced with light palpation NEURO: Motor strength 5/5 PSYCH: A+O x3, pleasant affect, appropriate speech, mood, insight and judgment SKIN: Normal turgor, normal texture, no lesions, no rashes, brisk cap refill Results 06/20/18 12:10 06/20/18 12:10 Cardiac Enzymes 06/20/18 06/20/18 Range/Units 12:10 12:10 AST 10 L (15-37) U/L Troponin I Less than 0.02 L (0.02-0.05) ng/mL B-Natriuretic Peptide 437 H (0-100) pg/mL Coagulation 06/20/18 06/20/18 Range/Units 12:10 12:10 PT 10.4 (9.8-11.6) sec APTT 28.5 (23.4-31.7) sec B-Natriuretic Peptide 437 H (0-100) pg/mL CBC 06/20/18 Range/Units 12:10 WBC 4.0 (4.0-11.0) th/mm3 RBC 4.06 (4.00-5.30) mil/mm3 Hgb 11.9 (11.6-15.3) gm/dL Hct 35.5 (35.0-46.0) % Plt Count 200 (150-450) th/mm3 Neut # (Auto) 2.7 (1.8-7.7) th/mm3 Lymph # (Auto) 0.8 L (1.0-4.8) th/mm3 [place] # (Auto) 0.4 (0.0-0.9) th/mm3 Eos # (Auto) 0.1 (0.0-0.4) th/mm3 Baso # (Auto) 0.0 (0.0-0.2) th/mm3 Comprehensive Metabolic Panel 06/20/18 Range/Units 12:10 Sodium 141 (136-145) meq/L Potassium 4.2 (3.5-5.1) meq/L Chloride 107 (98-107) meq/L Carbon Dioxide 24.0 (21.0-32.0) meq/L BUN 14 (7-18) mg/dL Creatinine 0.63 (0.50-1.00) mg/dL Calcium 8.1 L (8.5-10.1) mg/dL AST 10 L (15-37) U/L ALT 13 (10-53) U/L Alkaline Phosphatase 75 (45-117) U/L Total Protein 7.2 (6.4-8.2) g/dL Albumin 3.4 (3.4-5.0) g/dL Intake and Output 06/19/18 06/20/18 06/20/18 22:59 06:59 14:59 Other: Weight 53.07 kg Patient Weight 06/21/18 06:59 Weight 53.07 kg - Imaging and Cardiology Imaging: Impressions Chest X-Ray 06/20/18 12:02 CONCLUSION: No acute cardiopulmonary disease. EKG interpretations - EKG EKG results cardiology: sinus rhythm (LVH, st t segment changes, Q waves septally-unchanged from previous ekg's) Caprini VTE Risk Assessment Caprini VTE Risk Assessment: Moderate/High Risk (score >= 2) Caprini Risk Assessment Model: Point Value = 1 Point Value = 2 Point Value = 3 Point Value = 5 Age 41-60 Minor surgery BMI > 25 kg/m2 Swollen legs Varicose veins or History of unexplained or recurrent spontaneous Oral contraceptives or hormone replacement Sepsis (< 1 month) Serious lung disease, including pneumonia (< 1 month) Abnormal pulmonary function Acute myocardial infarction Congestive heart failure (< 1 month) History of inflammatory bowel disease Medical patient at bed rest Age 61-74 Arthroscopic surgery Major open surgery (> 45 min) Laparoscopic surgery (> 45 min) Malignancy Confined to bed (> 72 hours) Immobilizing plaster cast Central venous access Age >= 75 History of VTE Family history of VTE Factor V Leiden Prothrombin [id number] Lupus anticoagulant Anticardiolipin antibodies Elevated serum homocysteine Heparin-induced thrombocytopenia Other congenital or acquired thrombophilia Stroke (< 1 month) Elective arthroplasty Hip, pelvis, or leg fracture Acute spinal cord injury (< 1 month) Prophylaxis Regimen: Total Risk Factor Score Risk Level Prophylaxis Regimen 0-1 Low Early ambulation 2 Moderate Order ONE of the following: *Sequential Compression Device (SCD) *Heparin 5000 units SQ BID 3-4 Higher Order ONE of the following medications: *Heparin 5000 units SQ TID *Enoxaparin/Lovenox 40 mg SQ daily (WT < 150 kg, CrCl > 30 mL/min) *Enoxaparin/Lovenox 30 mg SQ daily (WT < 150 kg, CrCl > 10-29 mL/min) *Enoxaparin/Lovenox 30 mg SQ BID (WT < 150 kg, CrCl > 30 mL/min) AND/OR *Sequential Compression Device (SCD) 5 or more Highest Order ONE of the following medications: *Heparin 5000 units SQ TID (Preferred with Epidurals) *Enoxaparin/Lovenox 40 mg SQ daily (WT < 150 kg, CrCl > 30 mL/min) *Enoxaparin/Lovenox 30 mg SQ daily (WT < 150 kg, CrCl > 10-29 mL/min) *Enoxaparin/Lovenox 30 mg SQ BID (WT < 150 kg, CrCl > 30 mL/min) AND *Sequential Compression Device (SCD) Assessment and Plan - Assessment (1) Atypical chest pain Code(s): R07.89 - Other chest pain Status: Acute Plan: Admitted to rest pain center. Continue ruling out ACS with 3 sets of EKGs and cardiac enzymes. Will be seen and evaluated by Dr. Fidencio Gomez. Likely no further cardiac testing due to severe aortic stenosis. Further disposition to follow after evaluation by executive coach. (2) Aortic stenosis, severe Code(s): I35.0 - Nonrheumatic aortic (valve) stenosis Status: Chronic Plan: Dr. Gomez discussed in length benefits and risks of TAVR procedure, severity of stenosis, and likelihood of feeling better after valve replaced. Encouraged after follow up appointment with GI complete and cleared to received anticoagulants to schedule a follow up appointment with Dr. Durant to discuss TAVR again. Both she and her daughter verbalized understanding and agreeable to plan of care.
--- NOTE | 2018-06-20 15:12 | ECG ---
Date Performed: 06/20/2018 Time Performed: 12:02:14 PTAGE: 88 years EKG: Sinus rhythm LEFT VENTRICULAR HYPERTROPHY AND ST-T CHANGE ABNORMAL ECG INTERPRETATION BASED ON A DEFAULT AGE OF 4 0 YEARS PREVIOUS TRACING : 02/11/2018 11.24 Since previous tracing, no significant change noted DOCTOR: Fidencio Gomez Interpretating Date/Time 06/20/2018 15:11:42
[2018-06-20 16:04] LABS: Creatine Kinase 38 U/L (26-192)
[2018-06-20 16:42] VITALS: BP 126/58; PULSE 70; RESP 16; TEMP 97.9
[2018-06-20 18:21] LABS: Creatine Kinase 40 U/L (26-192)
--- NOTE | 2018-06-21 12:09 | ECG ---
Date Performed: 06/20/2018 Time Performed: 15:59:08 PTAGE: 88 years EKG: ATRIAL FIBRILLATION MODERATE VOLTAGE CRITERIA FOR LVH, CONSIDER NORMAL VARIANT POSSIBLE SEP POLLO MYOCARDIAL INFARCTION ABNORMAL ECG No significant change PREVIOUS TRACING : 06/20/2018 12.02 DOCTOR: Hiro Aguero Interpretating Date/Time 06/21/2018 12:08:42
--- NOTE | 2018-06-21 12:09 | ECG ---
Date Performed: 06/20/2018 Time Performed: 18:15:39 PTAGE: 88 years EKG: Sinus rhythm WITH OCCASIONAL SUPRAVENTRICULAR PREMATURE COMPLEXES LEFT VENTRICULAR HYPERTROPHY AND ST-T CHANGE PO SSIBLE SEPTAL MYOCARDIAL INFARCTION ABNORMAL ECG No significant change PREVIOUS TRACING : 06/20/2018 15.59 DOCTOR: Hiro Aguero Interpretating Date/Time 06/21/2018 12:08:11
== END 2018-06-20 19:13 ==
LOC: NEPC 11:48 → NEDA 11:48 → NEPFCDU 14:23
PROVIDERS: ADMIT Internal Medicine Cardiovascular Disease; ATTEND Internal Medicine Cardiovascular Disease